=== PATIENT | female | born 1940 | race Caucasian/White ===

== ENCOUNTER 2023-07-15 08:12 | Inpatient (IN) | payer MEDICARE ==
[2023-07-15] MEDS ORDERED: SODIUM CHLORIDE 0.9% 500 ML 500 ML IV STA (08:23)
[2023-07-15 08:47] LABS: Basophils # (A) 0.1 k/uL (0-0.2); Basophils % (A) 1 %; Eosinophils # (A) 0.2 k/uL (0-0.7); Eosinophils % (A) 2 %; HCT 44.6 % (34.0-46.0); HGB 14.8 gm/dL (11.4-16.0); Lymphocytes # (A) 2.7 k/uL (1.0-4.8); Lymphocytes % (A) 27 %; MCHC 33.3 g/dL (31.0-37.0); MCV 93.2 fL (80.0-100.0); Mean Platelet Volume 10.4; Monocytes # (A) 0.7 k/uL (0-1.0); Monocytes % (A) 7 %; Neutrophils # (A) 6.2 k/uL (1.3-7.7); Neutrophils % (A) 62 %; Platelet Count 183 k/uL (150-450); RBC 4.78 m/uL (3.80-5.40); RDW 12.9 % (11.5-15.5)
[2023-07-15 08:55] LABS: ALT 90 U/L (4-34); AST 82 U/L (14-36); African American GFR (CKD) 90 (>60 ml/min/1.73 sqM); Albumin 4.2 g/dL (3.5-5.0); Alkaline Phosphatase 61 U/L (38-126); Anion Gap 9 mmol/L; Blood Urea Nitrogen 23 mg/dL (7-17); Calcium 9.2 mg/dL (8.4-10.2); Carbon Dioxide 23 mmol/L (22-30); Chloride 107 mmol/L (98-107); Glucose 105 mg/dL (74-99); INR 0.9 (<1.2); Non-African American GFR(CKD) 78 (>60 ml/min/1.73 sqM); Partial Thromboplastin Time 25.4 sec (22.0-30.0); Potassium 4.9 mmol/L (3.5-5.1); Prothrombin Time 10.4 sec (10.0-12.5); Sodium 139 mmol/L (137-145); Total Bilirubin 1.2 mg/dL (0.2-1.3); Total Protein 7.2 g/dL (6.3-8.2)
--- NOTE | 2023-07-15 09:13 | ED ---
General Adult HPI - General Chief complaint: Arrhythmia/Palpitations Stated complaint: Afib Time Seen by Provider: 07/15/23 08:16 Source: patient, family Mode of arrival: ambulatory Limitations: no limitations - History of Present Illness Initial comments: Dictation was produced using [employer] dictation software. please excuse any grammatical, word or spelling errors. Chief Complaint: 83-year-old female presents with palpitations and weakness History of Present Illness: A 3-year-old female she has a pacemaker. She also has history of A. fib takes anticoagulation medications for last 2-3 days she's been feeling palpitations. She would check her radial pulse feels like she would is to be every 7 beats. She does have a pacemaker that she says does not R be slower than 50 bpm. She also has been feeling weak. Denies any pain complaints. Denies any fever or constitutional symptoms. No sore throat runny nose. Denies any urinary symptoms. The ROS documented in this emergency department record has been reviewed and confirmed by me. Those systems with pertinent positive or negative responses have been documented in the HPI. All other systems are other negative and/or noncontributory. - Related Data Home Medications Medication Instructions Recorded Confirmed Isosorbide Mononitrate ER [Imdur] 30 mg PO BID 07/15/23 07/15/23 Losartan Potassium 50 mg PO BID 07/15/23 07/15/23 Nattokinase (Unknown Dose) 1 cap PO BID 07/15/23 07/15/23 Nitroglycerin Sl Tabs [Nitrostat] 0.4 mg SUBLINGUAL Q5M PRN 07/15/23 07/15/23 atenoloL [Tenormin] 25 mg PO HS 07/15/23 07/15/23 atenoloL [Tenormin] 50 mg PO DAILY 07/15/23 07/15/23 Allergies Allergy/AdvReac Type Severity Reaction Status Date / Time No Known Allergies Allergy Verified 07/15/23 09:08 Review of Systems ROS Statement: Those systems with pertinent positive or pertinent negative responses have been documented in the HPI. ROS Other: All systems not noted in ROS Statement are negative. Past Medical History Past Medical History: Atrial Fibrillation, CVA/TIA, Hypertension, Myocardial Infarction ([place]) Past Surgical History: Coronary Bypass/CABG, Pacemaker Additional Past Surgical History / Comment(s): CABG 2013, Past Psychological History: No Psychological Hx Reported Smoking Status: Never smoker Past Alcohol Use History: None Reported Past Drug Use History: None Reported General Exam - General Exam Comments Initial Comments: PHYSICAL EXAM: General Impression: Alert and oriented x3, not in acute distress HEENT: Normocephalic atraumatic, extra-ocular movements intact, pupils equal and reactive to light bilaterally, mucous membranes moist. Cardiovascular: Heart regular rate and rhythm Chest: Able to complete full sentences, no retractions, no tachypnea Abdomen: abdomen soft, non-tender, non-distended, no organomegaly Musculoskeletal: Pulses present and equal in all extremities, no peripheral edema Motor: no focal deficits noted Neurological: CN II-XII grossly intact, no focal motor or sensory deficits noted Skin: Intact with no visualized rashes Psych: Normal affect and mood Limitations: no limitations Course Vital Signs 07/15/23 07/15/23 07/15/23 08:16 08:26 10:08 Temperature 98.1 F Pulse Rate 58 L 66 Pulse Rate [ 62 Hand Spray Operator ] Respiratory 18 18 Rate Blood Pressure 189/79 O2 Sat by Pulse 96 96 Oximetry 07/15/23 10:34 Temperature Pulse Rate 68 Pulse Rate [ Hand Spray Operator ] Respiratory 18 Rate Blood Pressure 140/78 O2 Sat by Pulse 98 Oximetry EKG Findings - EKG Comments: EKG Findings:: My EKG interpretation: Ventricular rate 64, atrial paced rhythm,. 160, QRS 93, QTC 425. No ND prolongation, no QTC prolongation, no ST or T-wave changes noted. Overall, this EKG is unremarkable Medical Decision Making - Medical Decision Making Was pt. sent in by a medical professional or institution (, PA, SHIFT SUPERVISOR RN, urgent care, hospital, or residential...) When possible be specific @ -No Did you speak to anyone other than the patient for history (EMS, parent, family, police, friend...)? What history was obtained from this source @ -No Did you review nursing and triage notes (agree or disagree)? Why? @ -I reviewed and agree with nursing and triage notes Were old charts reviewed (outside hosp., previous admission, EMS record, old EKG, old radiological studies, urgent care reports/EKG's, residential records)? Report findings @ -No old charts were reviewed Differential Diagnosis (chest pain, altered mental status, abdominal pain women, abdominal pain men, vaginal bleeding, musculoskeletal, weakness, fever, dyspnea, syncope, headache, dizziness, GI bleed, back pain, seizure, CVA, palpatations, mental health)? @ - Differential Palpitations: Ventricular arrhythmias, atrial arrhythmias, myocardial infarction, anemia, thyrotoxicosis, electrolyte imbalance, hypokalemia, pulmonary embolism, pulmonary disease, drugs, alcohol, anxiety, stress.... This is not meant to be an all-inclusive list. EKG interpreted by me (3pts min.). @ -As above X-rays interpreted by me (1pt min.). @ -Chest x-ray shows no acute processes CT interpreted by me (1pt min.). @ -None done U/S interpreted by me (1pt. min.). @ -None done What testing was considered but not performed or refused? (CT, X-rays, U/S, labs)? Why? @ -None What meds were considered but not given or refused? Why? @ -None Did you discuss the management of the patient with other professionals (professionals i.e. , PA, SHIFT SUPERVISOR RN, lab, RT, psych nurse, social science instructor, documentation analyst, teacher, targeting acquisition officer, case packer)? Give summary @ -Case discussed with sheet for admission Was smoking cessation discussed for >3mins.? @ -No Was critical care preformed (if so, how long)? @ -No Were there social determinants of health that impacted care today? How? (Homelessness, low income, unemployed, alcoholism, drug addiction, transportation, low edu. Level, literacy, decrease access to med. care, fci, rehab)? @ -No Was there de-escalation of care discussed even if they declined (Discuss DNR or withdrawal of care, Hospice)? DNR status @ -No What co-morbidities impacted this encounter? (DM, HTN, Smoking, COPD, CAD, Cancer, CVA, ARF, Chemo, Hep., AIDS, mental health diagnosis, sleep apnea, morbid obesity)? @ -None Was patient admitted / discharged? Hospital course, mention meds given and route, prescriptions, significant lab abnormalities, going to OR and other pertinent info. @ -83-year-old well-appearing female presents to the emergency department for generalized weakness and palpitations. She has a pacemaker. Patient recently moved here from [place] she has not had any cardiac care here in [place]. He just moved last week. Vital signs are stable. Patient is well-appearing. EKG is unremarkable. Laboratory evaluation obtained. CBC and metabolic panels within acceptable limits. She does have a positive troponin of 1.930. No old trauma levels for comparison. Given patient's elevated troponin with positive symptoms she is agreeable for observation admission with consultation c ardiology. Undiagnosed new problem with uncertain prognosis? @ -No Drug Therapy requiring intensive monitoring for toxicity (Heparin, Nitro, Ins ulin, Cardizem)? @ -No Were any procedures done? @ -No Diagnosis/symptom? Acute, or Chronic, or Acute on Chronic? Uncomplicated (without systemic symptoms) or Complicated (systemic symptoms)? @ -Palpitations Side effects of treatment? @ -No Exacerbation, Progression, or Severe Exacerbation? @ -No Poses a threat to life or bodily function? How? (Chest pain, [place], [place], pneumonia, PE, COPD, DKA, ARF, appy, cholecystitis, CVA, Diverticulitis, Homicidal, Suicidal, threat to staff... and all critical care pts) @ -yes - Lab Data Result diagrams: 07/15/23 08:36 07/15/23 08:36 Lab Results 07/15/23 07/15/23 07/15/23 Range/Units 08:36 08:36 08:36 WBC 10.0 (3.8-10.6) k/uL RBC 4.78 (3.80-5.40) m/uL Hgb 14.8 (11.4-16.0) gm/dL Hct 44.6 (34.0-46.0) % MCV 93.2 (80.0-100.0) fL MCH 31.0 (25.0-35.0) pg MCHC 33.3 (31.0-37.0) g/dL RDW 12.9 (11.5-15.5) % Plt Count 183 (150-450) k/uL MPV 10.4 Neutrophils % 62 % Lymphocytes % 27 % Monocytes % 7 % Eosinophils % 2 % Basophils % 1 % Neutrophils # 6.2 (1.3-7.7) k/uL Lymphocytes # 2.7 (1.0-4.8) k/uL Monocytes # 0.7 (0-1.0) k/uL Eosinophils # 0.2 (0-0.7) k/uL Basophils # 0.1 (0-0.2) k/uL PT 10.4 (10.0-12.5) sec INR 0.9 (<1.2) APTT 25.4 (22.0-30.0) sec Sodium 139 (137-145) mmol/L Potassium 4.9 (3.5-5.1) mmol/L Chloride 107 (98-107) mmol/L Carbon Dioxide 23 (22-30) mmol/L Anion Gap 9 mmol/L BUN 23 H (7-17) mg/dL Creatinine 0.72 (0.52-1.04) mg/dL Est GFR (CKD-EPI)AfAm 90 (>60 ml/min/1.73 sqM) Est GFR (CKD-EPI)NonAf 78 (>60 ml/min/1.73 sqM) Glucose 105 H (74-99) mg/dL Calcium 9.2 (8.4-10.2) mg/dL Magnesium 2.0 (1.6-2.3) mg/dL Total Bilirubin 1.2 (0.2-1.3) mg/dL AST 82 H (14-36) U/L ALT 90 H (4-34) U/L Alkaline Phosphatase 61 (38-126) U/L Troponin I (0.000-0.034) ng/mL Total Protein 7.2 (6.3-8.2) g/dL Albumin 4.2 (3.5-5.0) g/dL TSH 1.610 (0.465-4.680) mIU/L 07/15/23 Range/Units 08:36 WBC (3.8-10.6) k/uL RBC (3.80-5.40) m/uL Hgb (11.4-16.0) gm/dL Hct (34.0-46.0) % MCV (80.0-100.0) fL MCH (25.0-35.0) pg MCHC (31.0-37.0) g/dL RDW (11.5-15.5) % Plt Count (150-450) k/uL MPV Neutrophils % % Lymphocytes % % Monocytes % % Eosinophils % % Basophils % % Neutrophils # (1.3-7.7) k/uL Lymphocytes # (1.0-4.8) k/uL Monocytes # (0-1.0) k/uL Eosinophils # (0-0.7) k/uL Basophils # (0-0.2) k/uL PT (10.0-12.5) sec INR (<1.2) APTT (22.0-30.0) sec Sodium (137-145) mmol/L Potassium (3.5-5.1) mmol/L Chloride (98-107) mmol/L Carbon Dioxide (22-30) mmol/L Anion Gap mmol/L BUN (7-17) mg/dL Creatinine (0.52-1.04) mg/dL Est GFR (CKD-EPI)AfAm (>60 ml/min/1.73 sqM) Est GFR (CKD-EPI)NonAf (>60 ml/min/1.73 sqM) Glucose (74-99) mg/dL Calcium (8.4-10.2) mg/dL Magnesium (1.6-2.3) mg/dL Total Bilirubin (0.2-1.3) mg/dL AST (14-36) U/L ALT (4-34) U/L Alkaline Phosphatase (38-126) U/L Troponin I 1.930 H* (0.000-0.034) ng/mL Total Protein (6.3-8.2) g/dL Albumin (3.5-5.0) g/dL TSH (0.465-4.680) mIU/L Disposition Clinical Impression: Palpitations, Elevated troponin Disposition: ADMITTED IP TO THIS [facility] Condition: Fair Referrals: Nonstaff,Physician [Primary Care Provider] - 1-2 days Decision Time: 10:00
--- NOTE | 2023-07-15 09:13 | XR ---
EXAMINATION TYPE: XR chest 2V DATE OF EXAM: 07/15/2023 COMPARISON: NONE TECHNIQUE: PA and lateral views submitted. HISTORY: Irregular heart beat FINDINGS: The lungs are clear and there is no pneumothorax, pleural effusion, or focal pneumonia. Heart size normal and no overt failure. Osseous structures demonstrate hypertrophic and degenerative changes of the spine. Diffuse emphysematous changes. Median sternotomy changes cardiac device. Diffuse osteopeni a throughout the shoulders. Basilar atelectasis. Prominence of the upper mediastinum likely related t o ectatic vasculature. Chronic rib cage deformities. IMPRESSION: 1. COPD. 2. Cardiomegaly..
[2023-07-15] MEDS ORDERED: ASPIRIN 81 MG PO STA (10:34)
[2023-07-15] MEDS ORDERED: NITROGLYCERIN SL TABS 0.4 MG TAB SUBLINGUAL PRN ×2 (10:34→13:47)
[2023-07-15 11:59] LABS: Appearance,Urine Clear (Clear); Color,Urine Yellow; PH, Urine 6.5 (5.0-8.0); Protein,Urine Negative (Negative)
[2023-07-15 12:00] LABS: Bilirubin,Urine Negative (Negative); Blood,Urine Negative (Negative); Glucose,Urine (UA) Negative (Negative); Ketones,Urine Negative (Negative); Leukocyte Esterase,Urine Moderate (Negative); Nitrite,Urine Negative (Negative); Urobilinogen,Urine 0.2 mg/dL (<2.0)
[2023-07-15 12:20] LABS: Mucus,Urine Rare /hpf; RBC,Urine 2 /hpf (0-5); Squamous Epithelial Cell,Urine 1 /hpf (0-4); WBC,Urine 12 /hpf (0-5)
[2023-07-15] MEDS ORDERED: HEPARIN SODIUM 1,000 UN/ML (10ML VL) IV ONE (15:27)
[2023-07-15] MEDS ORDERED: HEPARIN SODIUM 1,000 UN/ML (10ML VL) IV PRN (15:27)
--- NOTE | 2023-07-15 15:32 | P.HPIM ---
History of Present Illness This is a pleasant 83 years old female with past medical history of atrial fibrillation and coronary artery disease status post CABG. CVA/TIA, hypertension, status post pacemaker Patient presents because of episodes of feeling weak and lightheadedness with slight sweating that last this for about 15 minutes, the lightheadedness is that she feels about the pass out but she does not. It happens 3 times over the last 3 days but also she is under a lot of stress [place] She denies chest pain or dyspnea. No change in urine or bowel habits. No fever. She is a known case of A. fib but she takes a natural blood thinner , she states it's a [place] medicine because her doctor is holistic. However I told the patient we want her to start on medication called heparin drip which is not holistic or natural and she agrees to take this medication while she is in the hospital. Also risks including but not to that was completed and I spent for her in details and she is agreeable. She denies any other symptoms like coughing, diarrhea abdominal pain and vomiting. No headache , no weakness or numbness. She denies trauma. She denies bleeding from anywhere. She denies smoking alcohol or illicit drugs. he is hemodynamically stable currently with blood pressure 154/77, on admission her blood pressure was high at 189/79, patient is afebrile. Labs were unremarkable including CBC, BMP, INR, liver function tests. Urine analysis Is not very suspicious of infection except for mildly elevated leukocyte esterase. Elevated 1.9 and 1.6. TSH is normal at 1.6. Influenza A and type B, RSV, SARS (coronavirus) are and detected EKG showed atrial paced rhythm at [address] T changes Chest x-ray showing no acute process but cardiomegaly and COPD changes In the emergency room patient was started on 325 mg of aspirin. Review of Systems Review of systems CONSTITUTIONAL: No fever, no malaise, no fatigue. HEENT: No recent visual problems or hearing problems. Denied any sore throat. CARDIOVASCULAR: No orthopnea, PND, no palpitations, no syncope. PULMONARY: No shortness of breath, no cough, no hemoptysis. GASTROINTESTINAL: No diarrhea, no nausea, no vomiting, no abdominal pain. Normoactive bowel sounds. NEUROLOGICAL: No headaches, no weakness, no numbness. HEMATOLOGICAL: Denies any bleeding or petechiae. GENITOURINARY: Denies any burning micturition, frequency, or urgency. MUSCULOSKELETAL/RHEUMATOLOGICAL: Denies any joint pain, swelling, or any muscle pain. ENDOCRINE: Denies any polyuria or polydipsia. Past Medical History Past Medical History: Atrial Fibrillation, CVA/TIA, Hypertension, Myocardial Infarction ([place]) Past Surgical History: Coronary Bypass/CABG, Pacemaker Additional Past Surgical History / Comment(s): CABG 2012, Past Psychological History: No Psychological Hx Reported Smoking Status: Never smoker Past Alcohol Use History: None Reported Past Drug Use History: None Reported Medications and Allergies Home Medications Medication Instructions Recorded Confirmed Type Isosorbide Mononitrate ER [Imdur] 30 mg PO BID 07/15/23 07/15/23 History Losartan Potassium 50 mg PO BID 07/15/23 07/15/23 History Nattokinase (Unknown Dose) 1 cap PO BID 07/15/23 07/15/23 History Nitroglycerin Sl Tabs [Nitrostat] 0.4 mg SUBLINGUAL Q5M PRN 07/15/23 07/15/23 History atenoloL [Tenormin] 25 mg PO HS 07/15/23 07/15/23 History atenoloL [Tenormin] 50 mg PO DAILY 07/15/23 07/15/23 History Allergies Allergy/AdvReac Type Severity Reaction Status Date / Time No Known Allergies Allergy Verified 07/15/23 09:08 Physical Exam Vitals: Vital Signs Temp Pulse Pulse Resp BP Pulse Ox 07/15/23 12:00 62 16 154/72 98 07/15/23 10:34 68 18 140/78 98 07/15/23 10:08 66 18 96 07/15/23 08:26 62 07/15/23 08:16 98.1 F 58 L 18 189/79 96 Intake and Output 07/14/23 07/15/23 07/15/23 22:59 06:59 14:59 Other: Weight 70.307 kg GENERAL: The patient is alert and oriented x3, not in any acute distress. Well developed, well nourished. HEENT: Pupils are round and equally reacting to light. EOMI. No scleral icterus. No conjunctival pallor. Normocephalic, atraumatic. No pharyngeal erythema. No thyromegaly. CARDIOVASCULAR: S1 and S2 present. No murmurs, rubs, or gallops. PULMONARY: Chest is clear to auscultation, no wheezing , no crackles. ABDOMEN: Soft, nontender, nondistended, normoactive bowel sounds. No palpable organomegaly. MUSCULOSKELETAL: No joint swelling or deformity. EXTREMITIES: No cyanosis, clubbing, or pedal edema. NEUROLOGICAL: Gross neurological examination did not reveal any focal deficits. SKIN: No rashes. no petechiae. Results CBC & Chem 7: 07/15/23 08:36 07/15/23 08:36 Labs: Abnormal Lab Results - Last 24 Hours (Table) 07/15/23 07/15/23 07/15/23 Range/Units 08:36 08:36 11:12 BUN 23 H (7-17) mg/dL Glucose 105 H (74-99) mg/dL AST 82 H (14-36) U/L ALT 90 H (4-34) U/L Troponin I 1.930 H* 1.660 H* (0.000-0.034) ng/mL Ur Leukocyte Esterase (Negative) Urine WBC (0-5) /hpf Urine Mucus (None) /hpf 07/15/23 Range/Units 11:28 BUN (7-17) mg/dL Glucose (74-99) mg/dL AST (14-36) U/L ALT (4-34) U/L Troponin I (0.000-0.034) ng/mL Ur Leukocyte Esterase Moderate H (Negative) Urine WBC 12 H (0-5) /hpf Urine Mucus Rare H (None) /hpf Assessment and Plan Assessment: Elevated troponin with episodes of palpitation and weakness, rule out ACS versus A. fib History of A. fib, not sure if there is RVR but heart rate was controlled on admission. History of CVA/TIA Hypertension 6 sinus syndrome status post pacemaker Coronary artery disease status post CABG Obesity with BMI of 30.3 Plan: Continue with aspirin currently on 325 mg daily. lower lower the dose to 81 mg Recommend heparin drip. There is no contraindication Check echocardiogram Continue with sublingual nitroglycerin when necessary Cardiology consult I asked the patient to bring her home on blood thinner box and she agrees Labs and medication were reviewed.. Continue same treatment. Continue with symptomatic treatment. Resume home medication. Monitor labs and vitals. DVT and GI prophylaxis. Further recommendations as per clinical course of the patient DVT prophylaxis: heparin GI Prophylaxis: Pepcid PT/OT: Pending Prognosis is guarded
[2023-07-15] MEDS: HEPARIN SOD,PORK IN 0.45% NACL 25,000 UNIT in 0.45% NACL 1 250ML.BAG IV SCH (15:44)
[2023-07-15] MEDS: ISOSORBIDE MONONITRATE ER 30 MG TAB.ER.24H PO SCH (18:35)
[2023-07-15] MEDS: LOSARTAN 50 MG TAB PO SCH (18:35)
[2023-07-15] MEDS ORDERED: FAMOTIDINE 20 MG/2 ML VIAL IV SCH ×2 (21:00)
[2023-07-15] MEDS ORDERED: atenoloL 25 MG TAB PO SCH (21:00)
[2023-07-15] MEDS: FAMOTIDINE 20 MG/2 ML VIAL IV SCH (21:50)
[2023-07-16 04:38] LABS: Basophils # (A) 0.1 k/uL (0-0.2); Basophils % (A) 1 %; Eosinophils # (A) 0.2 k/uL (0-0.7); Eosinophils % (A) 2 %; HCT 39.9 % (34.0-46.0); HGB 13.3 gm/dL (11.4-16.0); Lymphocytes # (A) 3.7 k/uL (1.0-4.8); Lymphocytes % (A) 37 %; MCH 31.2 pg (25.0-35.0); MCHC 33.4 g/dL (31.0-37.0); MCV 93.5 fL (80.0-100.0); Mean Platelet Volume 10.6; Monocytes # (A) 0.6 k/uL (0-1.0); Monocytes % (A) 6 %; Neutrophils # (A) 5.2 k/uL (1.3-7.7); Neutrophils % (A) 52 %; Platelet Count 162 k/uL (150-450); RBC 4.27 m/uL (3.80-5.40); RDW 12.9 % (11.5-15.5); WBC 9.9 k/uL (3.8-10.6)
[2023-07-16] MEDS ORDERED: hydrALAZINE HCL 20 MG/ML 1 ML VIAL IVP PRN (07:19)
[2023-07-16] MEDS ORDERED: FUROSEMIDE 10 MG/ML 4 ML VIAL IV STA (07:25)
[2023-07-16] MEDS: ASPIRIN 81 MG PO SCH (07:55)
[2023-07-16] MEDS: LOSARTAN 50 MG TAB PO SCH ×2 (07:55→19:57)
[2023-07-16] MEDS: carvediloL 12.5 MG TAB PO SCH ×2 (07:55→17:28)
[2023-07-16] MEDS: ISOSORBIDE MONONITRATE ER 30 MG TAB.ER.24H PO SCH ×2 (07:55→19:57)
--- NOTE | 2023-07-16 07:57 | P.CRDCN ---
History of Present Illness History of present illness: HISTORY OF PRESENT ILLNESS: This is a 83-year-old female with a past medical history significant for coronary artery disease with previous 5 vessel CABG, CVA with left-sided weakness, pacemaker implantation, paroxysmal atrial fibrillation, and hypertension. Patient does not follow with a chairman and ceo as she just moved here from [place]. We have been asked to see the patient in consultation for palpitations and elevated troponin. Patient examined at the bedside. Patient states she just moved here from [place] last week and has been under a lot of stress. She has not yet established with a chairman and ceo here. She states 2 days ago she had 2 episodes where she felt dizzy and felt like she was going to pass out. She also reports feeling her pulse and felt that it felt fast and irregular. She reports having another episode yesterday when she came to the ostal. She denied any chest pain or pressure. She denies any shortness of breath. She does stay in the morning she has a hard time initially taking a deep breath but it resolves shortly after waking. She reports having some diaphoresis yesterday. Denies nausea or vomiting. She denies any chest pain at the time of examination. The patient is not prescribed intake regulation on an outpatient basis per her choice. She is on a [place] medication called Nattokinase on an outpatient basis which was recommended by a holistic doctor that she saw in [place] * EKG reveals paced rhythm with T wave inversions inferiorly * Chest xray COPD and cardiomegaly * Laboratory data: Troponin 1.930. TSH 1.610. BUN 23. Creatinine 0.72. * Current home cardiac medications include atenolol 50 mg in the morning and 25 mg at night, Imdur 30 mg twice a day, and losartan 50 mg twice a day * No previous echocardiogram or cardiac catheterization available in EMR for review REVIEW OF SYSTEMS: At the time of my exam: CONSTITUTIONAL: Denies fever or chills. HEENT: Denies blurred vision, vision changes, or eye pain. Denies hemoptysis CARDIOVASCULAR: Denies chest pain. Denies orthopnea. Denies PND. Denies palpitations RESPIRATORY: Denies shortness of breath. GASTROINTESTINAL: Denies abdominal pain. Denies nausea or vomiting. HEMATOLOGIC: Denies bleeding disorders. GENITOURINARY: Denies any blood in urine. SKIN: Denies pruitis. Denies rash. PHYSICAL EXAM: VITAL SIGNS: Reviewed. GENERAL: Well-developed in no acute distress. HEENT: Head is normocephalic. Pupils are equal, round. Sclerae anicteric. Mucous membranes of the mouth are moist. Neck supple. No JVD or thyromegaly LUNGS: Respirations even and unlabored. Lungs essentially clear to auscultation bilaterally. HEART: Regular rate and rhythm. S1 and S2 heard. ABDOMEN: Soft. Nondistended. Nontender. EXTREMITIES: Normal range of motion. No clubbing or cyanosis. Peripheral pulses intact. No lower extremity edema NEUROLOGIC: Awake and alert. Oriented x 3. ASSESSMENT: Palpitations Non-STEMI Paroxysmal atrial fibrillation History of pacemaker implantation, 2012 Coronary artery disease with previous 5 vessel CABG, 2012 Hypertension History of CVA, 18 years ago, per patient, with residual left-sided weakness PLAN: Obtain 2-D echo to assess cardiac structure and function Continue IV heparin Discontinue atenolol Begin carvedilol 12.5 mg twice a day for optimal blood pressure control Give 1 dose of IV Lasix Interrogate pacemaker to assess for A. fib burden Continue additional home cardiac medications Discussed stress testing versus cardiac catheterization with patient. Patient states she does not want to have a stress test today as she is nervous because she had a friend who underwent a nuclear stress test and did not tolerate it well. Nothing by mouth midnight for possible heart catheterization tomorrow with Dr. Hernández Further recommendations pending patient's course Nurse practitioner note has been reviewed by physician. Signing provider agrees with the documented findings, assessment, and plan of care. Past Medical History Past Medical History: Atrial Fibrillation, CVA/TIA, Hypertension, Myocardial Infarction ([place]) Past Surgical History: Coronary Bypass/CABG, Pacemaker Additional Past Surgical History / Comment(s): CABG 2012, Past Psychological History: No Psychological Hx Reported Smoking Status: Never smoker Past Alcohol Use History: None Reported Past Drug Use History: None Reported Medications and Allergies Home Medications Medication Instructions Recorded Confirmed Type Isosorbide Mononitrate ER [Imdur] 30 mg PO BID 07/15/23 07/15/23 History Losartan Potassium 50 mg PO BID 07/15/23 07/15/23 History Nattokinase (Unknown Dose) 1 cap PO BID 07/15/23 07/15/23 History Nitroglycerin Sl Tabs [Nitrostat] 0.4 mg SUBLINGUAL Q5M PRN 07/15/23 07/15/23 History atenoloL [Tenormin] 25 mg PO HS 07/15/23 07/15/23 History atenoloL [Tenormin] 50 mg PO DAILY 07/15/23 07/15/23 History Allergies Allergy/AdvReac Type Severity Reaction Status Date / Time No Known Allergies Allergy Verified 07/15/23 09:08 Physical Exam Vitals: Vital Signs Temp Pulse Pulse Resp BP Pulse Ox 07/15/23 10:34 68 18 140/78 98 07/15/23 10:08 66 18 96 07/15/23 08:26 62 07/15/23 08:16 98.1 F 58 L 18 189/79 96 Intake and Output 07/14/23 07/15/23 07/15/23 22:59 06:59 14:59 Other: Weight 70.307 kg Results 07/16/23 03:44 07/15/23 08:36 Cardiac Enzymes 07/15/23 07/15/23 Range/Units 08:36 08:36 AST 82 H (14-36) U/L Troponin I 1.930 H* (0.000-0.034) ng/mL Coagulation 07/15/23 Range/Units 08:36 PT 10.4 (10.0-12.5) sec APTT 25.4 (22.0-30.0) sec CBC 07/15/23 Range/Units 08:36 WBC 10.0 (3.8-10.6) k/uL RBC 4.78 (3.80-5.40) m/uL Hgb 14.8 (11.4-16.0) gm/dL Hct 44.6 (34.0-46.0) % Plt Count 183 (150-450) k/uL Comprehensive Metabolic Panel 07/15/23 Range/Units 08:36 Sodium 139 (137-145) mmol/L Potassium 4.9 (3.5-5.1) mmol/L Chloride 107 (98-107) mmol/L Carbon Dioxide 23 (22-30) mmol/L BUN 23 H (7-17) mg/dL Creatinine 0.72 (0.52-1.04) mg/dL Glucose 105 H (74-99) mg/dL Calcium 9.2 (8.4-10.2) mg/dL AST 82 H (14-36) U/L ALT 90 H (4-34) U/L Alkaline Phosphatase 61 (38-126) U/L Total Protein 7.2 (6.3-8.2) g/dL Albumin 4.2 (3.5-5.0) g/dL Current Medications Generic Name Dose Route Start Last Admin Trade Name Freq PRN Reason Stop Dose Admin Aspirin 325 mg 07/16/23 09:00 Aspirin 325 Mg Tab PO DAILY ADAM Nitroglycerin 0.4 mg 07/15/23 10:34 Nitroglycerin Sl Tabs 0.4 Mg Tab SUBLINGUAL Q5M PRN Chest Pain Intake and Output 07/14/23 07/15/23 07/15/23 22:59 06:59 14:59 Other: Weight 70.307 kg Patient Weight 07/16/23 06:59 Weight 70.307 kg 07/15/23 08:36 07/15/23 08:36
[2023-07-16 08:44] LABS: Chol/HDL Ratio 3.16 Ratio; LDL Cholesterol,Calculated 91.5 mg/dL (0.0-131.0)
[2023-07-16] MEDS ORDERED: atenoloL 50 MG TAB PO SCH (09:00)
[2023-07-16] MEDS ORDERED: ASPIRIN 325 MG TAB PO SCH (09:00)
[2023-07-16] MEDS ORDERED: SODIUM CHLORIDE 0.9% 500 ML 250 ML IV ONE (09:59)
--- NOTE | 2023-07-16 12:14 | CA ---
Transthoracic Echo Report Name: Catalina Escobar Age: 83 Gender: F : 1940 Exam Date: 07/15/2023 15:46 Exam Location: [facility] Ht (in): 60 Wt (lb): 155 Ordering Physician: Ernie Justin MD Attending/Referring Phys: [id number], [employer] Personnel Negotiator Carolyn Hanson RDCS Procedure CPT: Indications: Rule out heart disease Cardiac Hx: Technical Quality: Technically difficult study Contrast 1: Definity Total Dose (mL): 2 Contrast 2: Total Dose (mL): MEASUREMENTS (Male / Female) Normal Values 2D ECHO LV Diastolic Diameter PLAX 4.5 cm 4.2 - 5.9 / 3.9 - 5.3 cm LV Systolic Diameter PLAX 3.3 cm IVS Diastolic Thickness 1.3 cm 0.6 - 1.0 / 0.6 - 0.9 cm LVPW Diastolic Thickness 1.1 cm 0.6 - 1.0 / 0.6 - 0.9 cm LV Relative Wall Thickness 0.5 RV Internal Dim ED PLAX 2.9 cm LVOT Diameter 1.9 cm LA Systolic Diameter LX 4.2 cm 3.0 - 4.0 / 2.7 - 3.8 cm LV Diastolic Volume MOD BP 59.8 cm??? 67 - 155 / 56 - 104 cm??? LV Systolic Volume MOD BP 30.0 cm??? 22 - 58 / 19 - 49 cm??? LV Ejection Fraction MOD BP 49.9 % >= 55 % LV Cardiac Index MOD BP 1107.3 cm???/min???m??? LV Diastolic Volume MOD 4C 57.2 cm??? LV Systolic Volume MOD 4C 28.9 cm??? LV Ejection Fraction MOD 4C 49.5 % LV Cardiac Index MOD 4C 1050.2 cm???/min???m??? LV Diastolic Length 4C 6.8 cm LV Systolic Length 4C 6.5 cm LV Diastolic Volume MOD 2C 65.2 cm??? LV Systolic Volume MOD 2C 13.7 cm??? LV Ejection Fraction MOD 2C 79.0 % LV Cardiac Index MOD 2C 1910.7 cm???/min???m??? LV Diastolic Length 2C 6.7 cm LV Systolic Length 2C 2.7 cm LA Volume 68.3 cm??? 18 - 58 / 22 - 52 cm??? LA Volume Index 39.0 cm???/m??? 16 - 28 cm???/m??? M-MODE Aortic Root Diameter MM 2.7 cm MV E Point Septal Separation 0.8 cm AV Cusp Separation MM 1.7 cm DOPPLER AV Peak Velocity 212.5 cm/s AV Peak Gradient 18.1 mmHg AV Mean Velocity 152.3 cm/s AV Mean Gradient 10.3 mmHg AV Velocity Time Integral 52.0 cm LVOT Peak Velocity 139.0 cm/s LVOT Peak Gradient 7.7 mmHg AV Area Cont Eq pk 1.9 cm??? MV Peak Velocity 163.4 cm/s MV Peak Gradient 10.7 mmHg MV Mean Velocity 58.4 cm/s MV Mean Gradient 2.2 mmHg MV Velocity Time Integral 34.5 cm MV Area PHT 5.4 cm??? Mitral E Point Velocity 142.9 cm/s Mitral A Point Velocity 66.9 cm/s Mitral E to A Ratio 2.1 MV Deceleration Time 141.5 ms MV E' Velocity 4.5 cm/s Mitral E to MV E' Ratio 31.5 TR Peak Velocity 292.8 cm/s TR Peak Gradient 34.3 mmHg Right Ventricular Systolic Press 38.8 mmHg FINDINGS Left Ventricle Left ventricular ejection fraction is estimated at 55-60 %. Left ventricular cavity size normal. Mild concentric LVH Right Ventricle Normal right ventricular size. Mild pulmonary hypertension. Right Atrium Right atrium not well visualized. Left Atrium Mild LA dilatation Mitral Valve Mitral valve thickened. Mitral annular calcification. Mild mitral regurgitation. Aortic Valve Trileaflet aortic valve. Aortic valve sclerosis. Mild aortic stenosis with a mean gradient of 10 mmHg. Tricuspid Valve Structurally normal tricuspid valve. Mild tricuspid regurgitation. Pulmonic Valve Structurally normal pulmonic valve. No pulmonic regurgitation. Pericardium No pericardial effusion. Aorta Normal size aortic root and proximal ascending aorta. CONCLUSIONS Left ventricular ejection fraction is estimated at 55-60 %. Mild concentric LVH. Mild LA dilatation. Mild aortic stenosis with a mean gradient of 10 mmHg. Mild mitral regurgitation. Mitral annular calcification. No pericardial effusion. Previewed by: Dr Henry Rivero (Electronically Signed) Final Date: 16 July 2023 12:13
[2023-07-16] MEDS: HEPARIN SOD,PORK IN 0.45% NACL 25,000 UNIT in 0.45% NACL 1 250ML.BAG IV SCH (15:50)
[2023-07-16] MEDS: FAMOTIDINE 20 MG/2 ML VIAL IV SCH (19:58)
--- NOTE | 2023-07-16 22:11 | P.PN ---
Subjective This is a pleasant 83 years old female with past medical history of atrial fibrillation and coronary artery disease status post CABG. CVA/TIA, hype rtension, status post pacemaker Patient presents because of episodes of feeling weak and lightheadedness with slight sweating that last this for about 15 minutes, the lightheadedness is that she feels about the pass out but she does not. It happens 3 times over the last 3 days but also she is under a lot of stress [place] She denies chest pain or dyspnea. No change in urine or bowel habits. No fever. She is a known case of A. fib but she takes a natural blood thinner , she states it's a [place] medicine because her doctor is holistic. However I told the patient we want her to start on medication called heparin drip which is not holistic or natural and she agrees to take this medication while she is in the hospital. Also risks including but not to that was completed and I spent for her in details and she is agreeable. She denies any other symptoms like coughing, diarrhea abdominal pain and vomiting. No headache , no weakness or numbness. She denies trauma. She denies bleeding from anywhere. She denies smoking alcohol or illicit drugs. he is hemodynamically stable currently with blood pressure 154/77, on admission her blood pressure was high at 189/79, patient is afebrile. Labs were unremarkable including CBC, BMP, INR, liver function tests. Urine analysis Is not very suspicious of infection except for mildly elevated leukocyte esterase. Elevated 1.9 and 1.6. TSH is normal at 1.6. Influenza A and type B, RSV, SARS (coronavirus) are and detected EKG showed atrial paced rhythm at [address] T changes Chest x-ray showing no acute process but cardiomegaly and COPD changes In the emergency room patient was started on 325 mg of aspirin. 07/16/2023 Patient resting in the chair comfortable no chest pain. Patient blood pressure medication were switched to Coreg pressure fluctuates will keep monitoring Rock Crusher Operator team following with the patient closely Patient remains on IV heparin Possible cardiac cath tomorrow. Objective - Vital Signs Vital signs: Vital Signs Temp 97.4 F L 07/16/23 11:27 Pulse 60 07/16/23 11:27 Resp 14 07/16/23 11:27 BP 139/61 07/16/23 11:27 Pulse Ox 92 L 12/13/23 11:27 FiO2 Intake & Output 07/15/23 07/16/23 07/16/23 18:59 06:59 18:59 Intake Total 166.653 559.586 Balance 166.653 559.586 Weight 70.307 kg Intake: IV 10 Invasive Line 2 10 Intake, IV Titration 48.653 191.586 Amount Heparin Sod,Pork in 0.45% 48.653 191.586 NaCl 25,000 unit In 0.45 % NaCl 1 250ml.bag @ 12 UNITS/KG/HR 8.437 mls/hr IV .Q24H ADAM Rx#: [id number] Oral 118 358 Other: Voiding Method Toilet Toilet Toilet # Voids 1 - Exam -GENERAL: The patient is alert and oriented x3, not in any acute distress. Obese HEENT: Pupils are round and equally reacting to light. EOMI. No scleral icterus. No conjunctival pallor. Normocephalic, atraumatic. No pharyngeal erythema. No thyromegaly. CARDIOVASCULAR: S1 and S2 present. No murmurs, rubs, or gallops. PULMONARY: Chest is clear to auscultation, no wheezing , no crackles. ABDOMEN: Soft, nontender, nondistended, normoactive bowel sounds. No palpable organomegaly. MUSCULOSKELETAL: No joint swelling or deformity. EXTREMITIES: No cyanosis, clubbing, or pedal edema. NEUROLOGICAL: Gross neurological examination did not reveal any focal deficits. SKIN: No rashes. no petechiae. - Labs CBC & Chem 7: 07/16/23 03:44 07/15/23 08:36 Labs: Abnormal Lab Results - Last 24 Hours (Table) 07/15/23 07/16/23 07/16/23 Range/Units 21:12 03:44 13:58 APTT 40.5 H 39.6 H 58.8 H (22.0-30.0) sec Assessment and Plan Assessment: Elevated troponin with episodes of palpitation and weakness, rule out ACS versus A. fib History of A. fib, not sure if there is RVR but heart rate was controlled on admission. History of CVA/TIA Hypertension sick sinus syndrome status post pacemaker Coronary artery disease status post CABG Obesity with BMI of 30.3 Plan: Continue with aspirin 81 mg Continue with heparin drip echocardiogram reviewed Continue with sublingual nitroglycerin when necessary Cardiology consult Cardiac cath in the morning Labs and medication were reviewed.. Continue same treatment. Continue with symptomatic treatment. Resume home medication. Monitor labs and vitals. DVT and GI prophylaxis. Further recommendations as per clinical course of the patient DVT prophylaxis: heparin GI Prophylaxis: Pepcid PT/OT: deferred Prognosis is still guarded
[2023-07-17] MEDS ORDERED: amLODIPine 5 MG TAB PO SCH (06:00)
[2023-07-17] MEDS: carvediloL 12.5 MG TAB PO SCH (06:20)
[2023-07-17] MEDS: ISOSORBIDE MONONITRATE ER 30 MG TAB.ER.24H PO SCH (08:41)
[2023-07-17] MEDS: ASPIRIN 81 MG PO SCH (08:41)
[2023-07-17] MEDS: LOSARTAN 50 MG TAB PO SCH (08:41)
[2023-07-17 09:13] VITALS: RESP 17
[2023-07-17] MEDS ORDERED: CLOPIDOGREL 75 MG TAB PO SCH (12:30)
[2023-07-17 12:36] VITALS: BP 146/73; PULSE 54; TEMP 98.1
--- NOTE | 2023-07-17 14:02 | P.PN ---
Subjective HISTORY OF PRESENT ILLNESS: This is a 83-year-old female with a past medical history significant for coronary artery disease with previous 5 vessel CABG, CVA with left-sided weakness, pacemaker implantation, paroxysmal atrial fibrillation, and hypertension. Patient does not follow with a tax intern as she just moved here from [place]. We have been asked to see the patient in consultation for palpitations and elevated troponin. Patient examined at the bedside. Patient states she just moved here from [place] last week and has been under a lot of stress. She has not yet established with a tax intern here. She states 2 days ago she had 2 episodes where she felt dizzy and felt like she was going to pass out. She also reports feeling her pulse and felt that it felt fast and irregular. She reports having another episode yesterday when she came to the hospital. She denied any chest pain or pressure. She denies any shortness of breath. She does stay in the morning she has a hard time initially taking a araseli p breath but it resolves shortly after waking. She reports having some diaphoresis yesterday. Denies nausea or vomiting. She denies any chest pain at the time of examination. The patient is not prescribed intake regulation on an outpatient basis per her choice. She is on a [place] medication called Nattokinase on an outpatient basis which was recommended by a holistic doctor that she saw in [place] * EKG reveals paced rhythm with T wave inversions inferiorly * Chest xray COPD and cardiomegaly * Laboratory data: Troponin 1.930. TSH 1.610. BUN 23. Creatinine 0.72. * Current home cardiac medications include atenolol 50 mg in the morning and 25 mg at night, Imdur 30 mg twice a day, and losartan 50 mg twice a day * No previous echocardiogram or cardiac catheterization available in EMR for review 07/17/2023 Patient examined this morning at the bedside. Patient currently denies chest pain or pressure. She denies shortness of breath. She reveals atrial paced rhythm. Echocardiogram completed revealing ejection fraction 55-60%, mild concentric LVH, mild pulmonary hypertension, mild aortic stenosis with mean gradient of 10 mmHg, mild tricuspid regurgitation. PHYSICAL EXAM: VITAL SIGNS: Reviewed. GENERAL: Well-developed in no acute distress. HEENT: Head is normocephalic. Pupils are equal, round. Sclerae anicteric. Mucous membranes of the mouth are moist. Neck supple. No JVD or thyromegaly LUNGS: Respirations even and unlabored. Lungs essentially clear to auscultation bilaterally. HEART: Regular rate and rhythm. S1 and S2 heard. ABDOMEN: Soft. Nondistended. Nontender. EXTREMITIES: Normal range of motion. No clubbing or cyanosis. Peripheral pulses intact. No lower extremity edema NEUROLOGIC: Awake and alert. Oriented x 3. ASSESSMENT: Palpitations Non-STEMI Paroxysmal atrial fibrillation History of pacemaker implantation, 2012 Coronary artery disease with previous 5 vessel CABG, 2012 Hypertension History of CVA, 18 years ago, per patient, with residual left-sided weakness PLAN: Discussed possible cardiac catheterization with patient who is declining at this time. She would like to continue with conservative management. Continue with aspirin 81 mg daily. Add Plavix 75 mg daily Patient currently refusing anticoagulation for atrial fibrillation and would like to continue with her holistic medication. Risk of stroke discussed with patient who verbalized understanding. Continue additional cardiac medications Patient is stable for discharge home today from a cardiac standpoint Nurse practitioner note has been reviewed by physician. Signing provider agrees with the documented findings, assessment, and plan of care. Objective - Vital Signs Vital signs: Vital Signs Temp 97.6 F 07/17/23 04:00 Pulse 67 07/17/23 04:00 Resp 18 07/17/23 04:00 BP 176/79 07/17/23 04:00 Pulse Ox 95 07/17/23 04:00 FiO2 Intake & Output 07/16/23 07/17/23 07/17/23 18:59 06:59 18:59 Intake Total 677.586 Balance 677.586 Intake: IV 10 Invasive Line 2 10 Intake, IV Titration 191.586 Amount Heparin Sod,Pork in 0.45% 191.586 NaCl 25,000 unit In 0.45 % NaCl 1 250ml.bag @ 12 UNITS/KG/HR 8.437 mls/hr IV .Q24H [facility] Rx#: [id number] Oral 476 Other: Voiding Method Toilet Toilet # Voids 2 4 - Labs CBC & Chem 7: 07/16/23 03:44 07/15/23 08:36 Labs: Abnormal Lab Results - Last 24 Hours (Table) 07/16/23 Range/Units 13:58 APTT 58.8 H (22.0-30.0) sec
== END 2023-07-17 15:07 | disposition home or self-care (01) | DRG 281 ==
LOC: EC 08:12 → OBSVTOIN 10:35 → 3SCARD 10:35
PROVIDERS: ADMIT Internal Medicine; ATTEND Internal Medicine
DX: I48.0 Paroxysmal atrial fibrillation (principal); I21.4 Non-ST elevation (NSTEMI) myocardial infarction; I69.354 Hemiplegia and hemiparesis following cerebral infarction affecting left non-dominant side; I10 Essential (primary) hypertension; Z20.822 Contact with and (suspected) exposure to COVID-19; I25.10 Atherosclerotic heart disease of native coronary artery without angina pectoris; I49.5 Sick sinus syndrome; Z68.30 Body mass index [BMI] 30.0-30.9, adult; E66.9 Obesity, unspecified; R53.1 Weakness; R00.2 Palpitations; I08.3 Combined rheumatic disorders of mitral, aortic and tricuspid valves; I27.20 Pulmonary hypertension, unspecified; Z79.01 Long term (current) use of anticoagulants; I25.2 Old myocardial infarction; Z79.899 Other long term (current) drug therapy; Z95.1 Presence of aortocoronary bypass graft; Z95.0 Presence of cardiac pacemaker
CPT/HCPCS: 36415; 71046; 80053; 80061; 81001; 83735; 84443; 84484; 85025; 85610; 85730; 87636; 93005; 93306; 96361; 96374; 99285

== ENCOUNTER → 2023-10-20 | Outpatient (CLI) | payer MEDICARE ==
[2023-10-21 03:55] LABS: HCT 41.7 % (37.2-46.3); HGB 13.4 g/dL (12.0-15.0); MCH 30.4 pg (27.0-32.0); MCHC 32.1 g/dL (32.0-37.0); MCV 94.6 FL (80.0-97.0); NRBC Per 100 WBC 0 X 10*3/uL (0.00-0.01); Platelet Count 222 X 10*3/uL (140-440); RBC 4.41 X 10*6/uL (4.10-5.20); RDW 13.9 % (11.5-14.5); WBC 9.14 X 10*3/uL (4.50-10.00)
[2023-10-21 04:01] LABS: ALT 23 U/L (8-44); AST 24 U/L (13-35); Albumin 4.2 g/dL (3.8-4.9); Albumin/Globulin Ratio 1.56 Ratio (1.60-3.17); Alkaline Phosphatase 86 U/L (41-126); BUN/Creat Ratio 31.86 Ratio (12.00-20.00); Blood Urea Nitrogen 22.3 mg/dL (9.0-27.0); Calcium 9.8 mg/dL (8.7-10.3); Carbon Dioxide 21.9 mmol/L (21.6-31.8); Chloride 106 mmol/L (96-109); Globulin 2.7 g/dL (1.6-3.3); Glucose 89 mg/dL (70-110); Potassium 4.9 mmol/L (3.5-5.5); Sodium 140 mmol/L (135-145); Total Bilirubin 0.3 mg/dL (0.3-1.2); Total Protein 6.9 g/dL (6.2-8.2)
== END | disposition home or self-care (01) ==
LOC: LABWHC1 16:22
PROVIDERS: ATTEND Student in an Organized Health Care Education/Training Program
DX: I50.9 Heart failure, unspecified (principal); N18.9 Chronic kidney disease, unspecified
CPT/HCPCS: 36415; 80053; 83036; 84443; 85027

== ENCOUNTER 2023-10-24 10:11 | Day surgery (SDC) | payer MEDICARE ==
[~2023-10-24 10:11] MED LIST: ALPRAZolam 0.25 MG TAB PO PRN; ALPRAZolam 0.5 MG TAB PO PRN; HEPARIN SODIUM,PORCINE (1 ML) 2,500 UNIT in SODIUM CHLORIDE 0.9% 250 ML IRRIGATION PRN; HEPARIN SODIUM,PORCINE 10,000 UNIT in SODIUM CHLORIDE 0.9% 1,000 ML IRRIGATION PRN; NITROGLYCERIN SL TABS 0.4 MG TAB SUBLINGUAL PRN
[2023-10-24] MEDS: SODIUM CHLORIDE 0.9% 1,000 ML in EMPTY BAG 1 BAG IV SCH (10:25)
[2023-10-24] MEDS: IV FLUID CONTINUATION 1,000 ML IV ONE ×2 (11:15→11:43)
[2023-10-24] MEDS ORDERED: ASPIRIN 81 MG ONE (11:18)
[2023-10-24 11:19] VITALS: RESP 16; TEMP 97.6
[2023-10-24] MEDS ORDERED: VERAPAMIL 2.5 MG/ML 2 ML AMP ONE (11:36)
[2023-10-24] MEDS ORDERED: LIDOCAINE 1% INJ 10MG/ML (20 ML MDV) ONE (11:36)
[2023-10-24] MEDS ORDERED: HEPARIN SODIUM 1,000 UN/ML (10ML VL) ONE (11:36)
[2023-10-24] MEDS: ASPIRIN 81 MG PO ONE (11:36)
[2023-10-24] MEDS ORDERED: fentaNYL (PF) 50 MCG/ML 2 ML AMP ONE (11:37)
[2023-10-24] MEDS: fentaNYL (PF) 50 MCG/ML 2 ML AMP IVP ONE (11:40)
[2023-10-24] MEDS: MIDAZOLAM 2 MG/2 ML VIAL IVP ONE (11:40)
[2023-10-24] MEDS: LIDOCAINE 1% INJ 10MG/ML (20 ML MDV) SQ ONE ×2 (11:43→11:55)
[2023-10-24] MEDS: IOPAMIDOL-370 100ML BTL INJ ONE ×2 (12:25→12:37)
[2023-10-24] MEDS: ASPIRIN 325 MG TAB PO STA (15:21)
[2023-10-24] MEDS: ATORVASTATIN 80 MG TAB PO STA (15:21)
[2023-10-24] MEDS: atenoloL 50 MG TAB PO SCH (15:29)
[2023-10-24] MEDS: LOSARTAN 50 MG TAB PO SCH (15:29)
[2023-10-24] MEDS: ISOSORBIDE MONONITRATE ER 30 MG TAB.ER.24H PO SCH (15:29)
[2023-10-24 16:07] VITALS: BP 188/86; PULSE 63
== END 2023-10-24 16:37 | disposition home or self-care (01) ==
LOC: CATHCVL 10:11
PROVIDERS: ATTEND Student in an Organized Health Care Education/Training Program
DX: I25.10 Atherosclerotic heart disease of native coronary artery without angina pectoris (principal); I48.0 Paroxysmal atrial fibrillation; I10 Essential (primary) hypertension; E78.2 Mixed hyperlipidemia; F17.290 Nicotine dependence, other tobacco product, uncomplicated; Z79.899 Other long term (current) drug therapy; E66.9 Obesity, unspecified; Z68.39 Body mass index [BMI] 39.0-39.9, adult; Z79.82 Long term (current) use of aspirin; Z82.49 Family history of ischemic heart disease and other diseases of the circulatory system
CPT/HCPCS: 93458; 76937; C1760; C1769 ×2; C1894 ×2; J2250; J2001; J3010; Q9967

== ENCOUNTER → 2023-12-26 | Outpatient (CLI) | payer MEDICARE ==
--- NOTE | 2023-12-26 16:59 | US ---
EXAMINATION TYPE: US venous doppler duplex LE RT DATE OF EXAM: 12/26/2023 4:09 PM COMPARISON: NONE CLINICAL INDICATION: Female, 83 years old with history of R60.0 LOCALIZED EDEMA; dropped heavy object on rt foot 2 months ago, calf/ foot edema SIDE PERFORMED: Right TECHNIQUE: The lower extremity deep venous system is examined utilizing real time linear array sonog isabell with graded compression, doppler sonography and color-flow sonography. VESSELS IMAGED: Common Femoral Vein Deep Femoral Vein Greater Saphenous Vein * Femoral Vein Popliteal Vein Small Saphenous Vein * Proximal Calf Veins (* superficial vessels) Right Leg: Negative for DVT exam limited by pt. mobility, shadowing calcified vessels, edema IMPRESSION: 1. Right lower extremity ultrasound negative for deep venous thrombosis.
== END | disposition home or self-care (01) ==
LOC: RADUSWWP 15:41
PROVIDERS: ATTEND Family Medicine
DX: R60.0 Localized edema (principal)

== ENCOUNTER 2024-02-05 03:43 | Emergency (ER) | payer MEDICARE ==
[2024-02-05 04:37] LABS: Basophils # (A) 0.1 k/uL (0-0.2); Basophils % (A) 0 %; Eosinophils # (A) 0.3 k/uL (0-0.7); Eosinophils % (A) 2 %; HCT 43.3 % (34.0-46.0); HGB 14.3 gm/dL (11.4-16.0); Lymphocytes # (A) 2.9 k/uL (1.0-4.8); Lymphocytes % (A) 22 %; MCH 30.5 pg (25.0-35.0); MCHC 33.1 g/dL (31.0-37.0); MCV 92.3 fL (80.0-100.0); Mean Platelet Volume 9.7; Monocytes # (A) 0.7 k/uL (0-1.0); Monocytes % (A) 6 %; Neutrophils # (A) 8.9 k/uL (1.3-7.7); Neutrophils % (A) 68 %; Platelet Count 196 k/uL (150-450); RBC 4.69 m/uL (3.80-5.40); RDW 13.5 % (11.5-15.5)
[2024-02-05] MEDS: SODIUM CHLORIDE 0.9% 1,000 ML IV STA (04:40)
[2024-02-05] MEDS: hydrALAZINE HCL 20 MG/ML 1 ML VIAL IVP STA ×2 (04:41→05:19)
[2024-02-05 04:56] LABS: ALT 39 U/L (4-34); AST 36 U/L (14-36); African American GFR (CKD) >90 (>60 ml/min/1.73 sqM); Albumin 4.4 g/dL (3.5-5.0); Alkaline Phosphatase 117 U/L (38-126); Amylase 50 U/L (30-110); Anion Gap 9 mmol/L; Blood Urea Nitrogen 29 mg/dL (7-17); Calcium 9.3 mg/dL (8.4-10.2); Carbon Dioxide 19 mmol/L (22-30); Chloride 111 mmol/L (98-107); Glucose 123 mg/dL (74-99); Lipase 84 U/L (23-300); Non-African American GFR(CKD) 83 (>60 ml/min/1.73 sqM); Potassium 3.9 mmol/L (3.5-5.1); Sodium 139 mmol/L (137-145); Total Bilirubin 0.6 mg/dL (0.2-1.3); Total Protein 7.3 g/dL (6.3-8.2)
[2024-02-05 05:15] LABS: Appearance,Urine Clear (Clear); Bacteria,Urine Rare /hpf; Bilirubin,Urine Negative (Negative); Blood,Urine Small (Negative); Color,Urine Colorless; Glucose,Urine (UA) Negative (Negative); Ketones,Urine Negative (Negative); Leukocyte Esterase,Urine Negative (Negative); Mucus,Urine Rare /hpf; Nitrite,Urine Negative (Negative); Protein,Urine 1+ (Negative); RBC,Urine 18 /hpf (0-5); Specific Gravity,Urine 1.013 (1.001-1.035); Squamous Epithelial Cell,Urine 1 /hpf (0-4); Urobilinogen,Urine <2.0 mg/dL (<2.0); WBC,Urine 6 /hpf (0-5)
--- NOTE | 2024-02-05 07:16 | ED ---
General Adult HPI - General Source: patient, EMS, RN notes reviewed, old records reviewed Mode of arrival: EMS Limitations: no limitations <Alex Mays - Last Filed: 02/05/24 07:09> <Oscar Miramontes - Last Filed: 02/05/24 07:55> - General Chief complaint: Abdominal Pain Stated complaint: Flank Pain Time Seen by Provider: 02/05/24 04:15 - History of Present Illness Initial comments: Patient is an 83-year-old female presents emergency department complaining of abdominal pain. States it was sudden onset abdominal pain this evening. Has not gone away. However it did resolve when she called EMS and arrived to the emergency department for further evaluation. She currently denies any pain. Denies any urinary complaints. Denies any constipation or diarrhea. Last bowel movement was yesterday. Concern for possible kidney stone as it was on the left lower back with radiation along the left flank. History of vomiting. Currently pain-free. Patient is hypertensive. Took her normal medications. Presents for further evaluation. (Alex Mays) - Related Data Home Medications Medication Instructions Recorded Confirmed Isosorbide Mononitrate ER [Imdur] 30 mg PO BID 07/15/23 10/24/23 Losartan Potassium 50 mg PO BID 07/15/23 10/24/23 Nitroglycerin Sl Tabs [Nitrostat] 0.4 mg SUBLINGUAL Q5M PRN 07/15/23 10/24/23 Atenolol (Unk) 50 mg PO DAILY 10/21/23 10/24/23 Previous Rx's Medication Instructions Recorded Cephalexin [Keflex] 500 mg PO Q12HR 7 Days #14 cap 02/05/24 Allergies Allergy/AdvReac Type Severity Reaction Status Date / Time No Known Allergies Allergy Verified 10/24/23 10:42 Review of Systems ROS Other: All systems not noted in ROS Statement are negative. <Alex Mays - Last Filed: 02/05/24 07:09> ROS Other: All systems not noted in ROS Statement are negative. <Oscar Miramontes - Last Filed: 02/05/24 07:55> ROS Statement: Those systems with pertinent positive or pertinent negative responses have been documented in the HPI. Review of Systems: CONST: Denies fever EYES: Denies blurry vision ENT: Denies nasal congestion C/V: Denies Chest pain RESP: Denies shortness of breath GI: Endorses abdominal pain : Denies dysuria SKIN: Denies rash. MSK: Denies joint pain. NEURO: Denies headache (Alex Mays) Past Medical History Past Medical History: Atrial Fibrillation, CVA/TIA, Hypertension, Myocardial Infarction ([place]) Additional Past Medical History / Comment(s): CVA left side weakness 2005, open heart in 2012, pacemaker in 2012 Last Myocardial Infarction Date:: 2012 History of Any Multi-Drug Resistant Organisms: None Reported Past Surgical History: Coronary Bypass/CABG, Pacemaker Additional Past Surgical History / Comment(s): CABG 2012, Past Anesthesia/Blood Transfusion Reactions: No Reported Reaction Type of Cardiac Device: Permanent Pacemaker Device Placement Date:: 2012 Past Psychological History: No Psychological Hx Reported Smoking Status: Never smoker <Alex Mays - Last Filed: 02/05/24 07:09> General Exam Limitations: no limitations <Alex Mays - Last Filed: 02/05/24 07:09> - General Exam Comments Initial Comments: General: Appears in no acute distress. HEAD: Normal with no signs of head trauma. EYES: PERRLA, EOMI, conjunctiva normal, no discharge. ENT: Hearing grossly intact, normal oropharynx. RESPIRATORY: Clear breath sounds bilaterally. No wheezes, rales, or rhonchi. C/V: Regular rate and rhythm. S1 and S2 auscultated, no edema, peripheral pulses 2+ and intact throughout ABD: Abd is soft, nontender, nondistended EXT: Normal range of motion, no obvious deformity SKIN: No rashes or lesions observed on exposed skin. NEURO: Alert and oriented x 4. (Alex Mays) Course Vital Signs 02/05/24 02/05/24 02/05/24 03:46 04:27 05:52 Temperature 97.6 F Pulse Rate 73 Respiratory 16 Rate Blood Pressure 223/123 165/73 O2 Sat by Pulse 94 L Oximetry 02/05/24 06:30 Temperature Pulse Rate 61 Respiratory 16 Rate Blood Pressure 160/63 O2 Sat by Pulse 98 Oximetry Medical Decision Making - Lab Data Result diagrams: 02/05/24 04:23 02/05/24 04:23 - EKG Data -: EKG Interpreted by Me <Alex Mays - Last Filed: 02/05/24 07:09> - Lab Data Result diagrams: 02/05/24 04:23 02/05/24 04:23 <Oscar Miramontes N - Last Filed: 02/05/24 07:55> - Medical Decision Making Was pt. sent in by a medical professional or institution (, [facility], SENIOR PROJECT ARCHITECT, urgent care, hospital, or [facility]...) When possible be specific @ -No Did you speak to anyone other than the patient for history (EMS, parent, family, police, friend...)? What history was obtained from this source @ -No Did you review nursing and triage notes (agree or disagree)? Why? @ -I reviewed and agree with nursing and triage notes Were old charts reviewed (outside hosp., previous admission, EMS record, old EKG, old radiological studies, urgent care reports/EKG's, [facility] records)? Report findings @ -No old charts were reviewed Differential Diagnosis (chest pain, altered mental status, abdominal pain women, abdominal pain men, vaginal bleeding, weakness, fever, dyspnea, syncope, headache, dizziness, GI bleed, back pain, seizure, CVA, palpatations, mental health, musculoskeletal)? @ -Differential Abdominal Pain Women: Appendicitis, Cholecystitis, diverticulosis, ischemic bowel, pancreatitis, hepatitis, UTI, gastroenteritis, AAA, incarcerated hernia, bowel obstruction, constipation, inflammatory bowel, hepatitis, peptic ulcer disease, splenic infarction, perforated viscus, vulvitis, ovarian torsion, PID, kidney stone, placenta abruption, this is not meant to be an all-inclusive list EKG interpreted by me (3pts min.). @ -As above X-rays interpreted by me (1pt min.). @ -None done CT interpreted by me (1pt min.). @ -Pending U/S interpreted by me (1pt. min.). @ -None done What testing was considered but not performed or refused? (CT, X-rays, U/S, labs)? Why? @ -None What meds were considered but not given or refused? Why? @ -None Did you discuss the management of the patient with other professionals (professionals i.e. , [facility], SENIOR PROJECT ARCHITECT, lab, RT, psych nurse, social science instructor, executive vice president, teacher, immigration officer, immigration case manager)? Give summary @ -No Was smoking cessation discussed for >3mins.? @ -No Was critical care preformed (if so, how long)? @ -No Were there social determinants of health that impacted care today? How? (Homelessness, low income, unemployed, alcoholism, drug addiction, transportation, low edu. Level, literacy, decrease access to med. care, custodial, rehab)? @ -No Was there de-escalation of care discussed even if they declined (Discuss DNR or withdrawal of care, Hospice)? DNR status @ -No What co-morbidities impacted this encounter? (DM, HTN, Smoking, COPD, CAD, Cancer, CVA, ARF, Chemo, Hep., AIDS, mental health diagnosis, sleep apnea, morbid obesity)? @ -None Was patient admitted / discharged? Hospital course, mention meds given and route, prescriptions, significant lab abnormalities, going to OR and other pertinent info. @ -Based on the patient's presentation and physical exam, I am concerned for acute intra-abdominal pathology for patient's symptoms. She is currently asymptomatic. However she is hypertensive. She will be given IV hydralazine for her hypertension. Patient given IV fluids as well. She was in agreement this plan. Vital signs improved after hydralazine his blood pressure is now 160/60. EKG shows no signs of acute ischemia. Mild leukocytosis of 13. Patient does have some blood located on urinalysis. CT imaging is still pending. Patient signed out to Dr. Miramontes pending results of CT imaging. Undiagnosed new problem with uncertain prognosis? @ -No Drug Therapy requiring intensive monitoring for toxicity (Heparin, Nitro, Insulin, Cardizem)? @ -No Were any procedures done? @ -No (Alex Mays) Patient reevaluated after signout, showing a stone in the left UPJ with mild hydro-. Patient reevaluated she has no pain whatsoever. Patient is informed of results and need to follow-up with urology. She is instructed to take Tylenol and Motrin for her pain. Urine culture is obtained due to bacteria in the presence of stone. She will be started on prophylactic Keflex. Patient given strict return parameters. (Oscar Miramontes) - Lab Data Lab Results 02/05/24 02/05/24 02/05/24 Range/Units 04:23 04:23 04:26 WBC 13.0 H (3.8-10.6) k/uL RBC 4.69 (3.80-5.40) m/uL Hgb 14.3 (11.4-16.0) gm/dL Hct 43.3 (34.0-46.0) % MCV 92.3 (80.0-100.0) fL MCH 30.5 (25.0-35.0) pg MCHC 33.1 (31.0-37.0) g/dL RDW 13.5 (11.5-15.5) % Plt Count 196 (150-450) k/uL MPV 9.7 Neutrophils % 68 % Lymphocytes % 22 % Monocytes % 6 % Eosinophils % 2 % Basophils % 0 % Neutrophils # 8.9 H (1.3-7.7) k/uL Lymphocytes # 2.9 (1.0-4.8) k/uL Monocytes # 0.7 (0-1.0) k/uL Eosinophils # 0.3 (0-0.7) k/uL Basophils # 0.1 (0-0.2) k/uL Sodium 139 (137-145) mmol/L Potassium 3.9 (3.5-5.1) mmol/L Chloride 111 H (98-107) mmol/L Carbon Dioxide 19 L (22-30) mmol/L Anion Gap 9 mmol/L BUN 29 H (7-17) mg/dL Creatinine 0.63 (0.52-1.04) mg/dL Est GFR (CKD-EPI)AfAm >90 (>60 ml/min/1.73 sqM) Est GFR (CKD-EPI)NonAf 83 (>60 ml/min/1.73 sqM) Glucose 123 H (74-99) mg/dL Calcium 9.3 (8.4-10.2) mg/dL Total Bilirubin 0.6 (0.2-1.3) mg/dL AST 36 (14-36) U/L ALT 39 H (4-34) U/L Alkaline Phosphatase 117 (38-126) U/L Total Protein 7.3 (6.3-8.2) g/dL Albumin 4.4 (3.5-5.0) g/dL Amylase 50 (30-110) U/L Lipase 84 (23-300) U/L Urine Color Colorless Urine Appearance Clear (Clear) Urine pH 6.0 (5.0-8.0) Ur Specific [place] 1.013 (1.001-1.035) Urine Protein 1+ H (Negative) Urine Glucose (UA) Negative (Negative) Urine Ketones Negative (Negative) Urine Blood Small H (Negative) Urine Nitrite Negative (Negative) Urine Bilirubin Negative (Negative) Urine Urobilinogen <2.0 (<2.0) mg/dL Ur Leukocyte Esterase Negative (Negative) Urine RBC 18 H (0-5) /hpf Urine WBC 6 H (0-5) /hpf Ur Squamous Epith Cells 1 (0-4) /hpf Urine Bacteria Rare H (None) /hpf Urine Mucus Rare H (None) /hpf - EKG Data EKG Comments: 12-lead Electrocardiogram Interpretation Note EKG was reviewed and interpreted by myself. 12-lead ECG performed at 0416 is interpreted by me as revealing normal sinus rhythm at a rate of 64 beats per minute.[place] is normal. UT interval is 152 ms, QRS duration is 86 ms, QTc is 425 ms.. There were no ST or T wave abnormalities to suggest myocardial ischemia or injury. R wave progression across the precordium was satisfactory. By my interpretation this EKG is non-diagnostic for acute ischemia. (Alex Mays) Disposition <Alex Mays - Last Filed: 02/05/24 07:09> Is patient prescribed a controlled substance at d/c from ED?: No Time of Disposition: 07:54 <Oscar Miramontes - Last Filed: 02/05/24 07:55> Clinical Impression: Kidney stone on left side Disposition: HOME SELF-CARE Condition: Good Instructions (If sedation given, give patient instructions): Kidney Stones (ED) Additional Instructions: Please take Tylenol and Motrin for pain. If pain is severe. Please return to the emergency department. Prescriptions: Cephalexin [Keflex] 500 mg PO Q12HR 7 Days #14 cap Referrals: Robert Lerma DO [Primary Care Provider] - 1-2 days Rajinder Mcclellan MD [STAFF PHYSICIAN] - 1-2 days
--- NOTE | 2024-02-05 07:31 | CT ---
EXAMINATION TYPE: CT abdomen pelvis wo con CT DLP: 607.8 mGycm, Automated exposure control for dose reduction was used. DATE OF EXAM: 02/05/2024 4:55 AM COMPARISON: None CLINICAL INDICATION:Female, 83 years old with history of left flank pain; left sided flank pain, diff iculty urinating x1 day TECHNIQUE: Axial CT abdomen pelvis wo con;Sagittal and coronal reformats were created on a separate workstation. Contrast used: mL of , (none if empty) Oral contrast used: without Oral Contrast (none if empty) FINDINGS: LOWER CHEST: The heart is enlarged for size. Intralobular septal thickening. Cardiac conduction leads terminating the right ventricle and atrium. High density in the coronary arteries possibly represent ing calcifications or stents. Partially calcified lymph node noted near the aorta. ABDOMEN LIVER: Scattered calcified granulomas. GALLBLADDER AND BILE DUCTS: Unremarkable. PANCREAS: Unremarkable. SPLEEN: Scattered calcified granulomas. ADRENAL GLANDS: Unremarkable. KIDNEYS AND URETERS: Mild left hydronephrosis secondary to obstructing 6 cm calculus at the ureterope lvic junction. Additional smaller left renal calculi. No right renal calculi and no right hydronephro sis. PELVIS BLADDER: Unremarkable REPRODUCTIVE: The uterus is surgically absent. ABDOMEN & PELVIS STOMACH AND BOWEL: No evidence of bowel obstruction. PERITONEUM/RETROPERITONEUM: No evidence of pneumoperitoneum or free fluid. VASCULATURE: Moderate to severe atherosclerotic calcifications are present throughout the abdominal a [place] and its branches. No evidence of aortic aneurysm. MUSCULOSKELETAL: No acute osseous abnormalities. Moderate disc degeneration changes are present throu ghout the thoracolumbar spine. LYMPH NODES: No gross evidence for lymphadenopathy. SOFT TISSUE/ABDOMINAL WALL: Fat-containing umbilical hernia. IMPRESSION: 1. Mild left hydronephrosis secondary to obstructing 6 cm calculus at the ureteropelvic junction. Ad ditional smaller left renal calculi. 2. Congestive heart failure with cardiomegaly and pulmonary vascular congestion and trace bilateral pleural effusions.
[2024-02-05] MEDS: KETOROLAC 15 MG/ML 1 ML VIAL IVP STA (07:57)
[2024-02-05 09:33] VITALS: BP 157/68; PULSE 65; RESP 18; TEMP 97.9
== END 2024-02-05 09:47 | disposition home or self-care (01) ==
LOC: EC 03:43
DX: N13.2 Hydronephrosis with renal and ureteral calculous obstruction (principal); D72.829 Elevated white blood cell count, unspecified; B95.1 Streptococcus, group B, as the cause of diseases classified elsewhere; Z86.73 Personal history of transient ischemic attack (TIA), and cerebral infarction without residual deficits
CPT/HCPCS: 36415; 93005; 80053; 82150; 83690; 85025; 81001; 87086; 74176; 99285; 96374; 96375; 96376; 96361; J0360; J1885

== ENCOUNTER → 2024-04-29 | Outpatient (CLI) | payer MEDICARE ==
[2024-04-29 17:59] LABS: HCT 44.5 % (37.2-46.3); MCH 29.5 pg (27.0-32.0); MCHC 31.5 g/dL (32.0-37.0); MCV 93.9 FL (80.0-97.0); Mean Platelet Volume 11.4 FL (9.5-12.2); NRBC Per 100 WBC 0 X 10*3/uL (0.00-0.01); Platelet Count 173 X 10*3/uL (140-440); RBC 4.74 X 10*6/uL (4.10-5.20); RDW 13.6 % (11.5-14.5); WBC 7.73 X 10*3/uL (4.50-10.00)
[2024-04-29 18:25] LABS: Chol/HDL Ratio 3.54 Ratio
[2024-04-29 18:26] LABS: ALT 23 U/L (8-44); AST 22 U/L (13-35); BUN/Creat Ratio 29.12 Ratio (12.00-20.00); Blood Urea Nitrogen 23.3 mg/dL (9.0-27.0); Calcium 9.4 mg/dL (8.7-10.3); Carbon Dioxide 24.4 mmol/L (21.6-31.8); Chloride 107 mmol/L (96-109); Glucose 92 mg/dL (70-110); LDL Cholesterol,Calculated 116.8 mg/dL (0.0-131.0); Potassium 4.5 mmol/L (3.5-5.5); Sodium 141 mmol/L (135-145)
== END | disposition home or self-care (01) ==
LOC: LABWHC1 14:53
PROVIDERS: ATTEND Family Medicine
DX: I10 Essential (primary) hypertension (principal); E78.5 Hyperlipidemia, unspecified; R73.03 Prediabetes
CPT/HCPCS: 36415; 80048; 80061; 82306; 83036; 84450; 84460; 85027

== ENCOUNTER 2024-06-09 21:50 | Observation (INO) | payer MEDICARE ==
--- NOTE | 2024-06-09 22:32 | ED ---
Dizziness HPI - General Chief Complaint: Dizziness Stated Complaint: Dizziness Time Seen by Provider: 06/09/24 22:00 Source: EMS Mode of arrival: EMS - History of Present Illness Initial Comments: Pt is an 84 y/o female PMH prior CVA/TIA, atrial fibrillation on holistic blood thinner "nanokinase" , presenting today for sudden onset dizziness. Patient states she was watching TV this evening with her when she suddenly felt dizzy, like the room was spinning and the floor was tilting. She states she experienced this prior to her last stroke which ultimately resulted in left- sided weakness. She states at that time she did not come in in time to prevent retirement deficits. States symptoms have since resolved. She denies nausea, vomiting, changes in vision, numbness, weakness, slurred speech, fevers, chills, chest pain, shortness of breath, abdominal pain. States is due for her home antihypertensives. - Related Data Home Medications Medication Instructions Recorded Confirmed Isosorbide Mononitrate ER [Imdur] 30 mg PO BID 07/15/23 06/10/24 Losartan Potassium 50 mg PO BID 07/15/23 06/10/24 Previous Rx's Medication Instructions Recorded Aspirin 81 mg PO DAILY tab 06/11/24 Atorvastatin [Lipitor] 40 mg PO DAILY #30 tab 06/11/24 Chlorthalidone 25 mg PO DAILY #30 tablet 06/11/24 Clopidogrel [Plavix] 75 mg PO DAILY #30 tab 06/11/24 Labetalol [Trandate] 200 mg PO BID #60 tab 06/11/24 Allergies Allergy/AdvReac Type Severity Reaction Status Date / Time No Known Allergies Allergy Verified 06/10/24 07:48 Review of Systems ROS Statement: Those systems with pertinent positive or pertinent negative responses have been documented in the HPI. ROS Other: All systems not noted in ROS Statement are negative. Past Medical History Past Medical History: Atrial Fibrillation, CVA/TIA, Hypertension, Myocardial Infarction ([place]) Additional Past Medical History / Comment(s): CVA left side weakness 2005, open heart in 2012, pacemaker in 2012 Last Myocardial Infarction Date:: 2012 History of Any Multi-Drug Resistant Organisms: None Reported Past Surgical History: Coronary Bypass/CABG, Pacemaker Additional Past Surgical History / Comment(s): CABG 2012, Past Anesthesia/Blood Transfusion Reactions: No Reported Reaction Type of Cardiac Device: Permanent Pacemaker Device Placement Date:: 2012 Past Psychological History: No Psychological Hx Reported Smoking Status: Never smoker General Exam - General Exam Comments Initial Comments: PE: CONSTITUTIONAL: No apparent distress, well appearing SKIN: Warm, dry, no jaundice, hives or petechiae EYES: Pupils are equally round, extraocular movements intact without nystagmus, clear conjunctiva, non-icteric sclera HENT: Normocephalic, atraumatic, moist mucus membranes, oropharynx clear without exudates NECK: , Full range of motion, normal appearance PULMONARY: Clear to auscultation without wheezes, rhonchi, or rales, normal excursion, no accessory muscle use and no stridor CARDIOVASCULAR: Regular rate, rhythm, normal S1 and S2. No appreciated murmurs, rubs or gallops. Strong radial pulses with intact distal perfusion. 2+ DP pulse RLE, 1+ DP pulse LLE, No lower extremity edema GASTROINTESTINAL: Soft, active bowel sounds throughout, non-tender, non- distended, no palpable masses, no rebound or guarding. No hepatosplenomegaly GENITOURINARY: MUSCULOSKELETAL: No midline spinal TTP, Extremities have no gross deformity, no edema, redness, or swelling. No calf swelling. Chronic muscle contractures LUE and LLE, 4/5 strength LUE and LLE, 5/5 strength RUE and RLE NEUROLOGIC:_a/o x 3, GCS 15, normal mentation and speech. Moves all extremities x 4, chronic contractures and weakness of Left sided extremities as noted above, pt states is chronic, otherwise cranial nerves: II (visual kulkarni without defects), III, IV and (extraocular movements are intact, pupils are equal with normal reaction to light), V (intact facial sensation and jaw opening), VII (no facial droop), IX and X (normal palate movement, midline uvula, normal voice), XI (symmetrical shoulder shrug and lateral head rotation against resistance), XII (midline tongue protrusion). Motor strength noted above. No abnormal movements. Normal muscle tone. Sensation to light touch is intact bilaterally. No cerebellar signs ([id number], [id number] are normal) PSYCHIATRIC:_normal mood and affect, thought process is clear and linear Course Vital Signs 06/09/24 06/09/24 06/09/24 21:51 23:10 23:53 Temperature 98.0 F Pulse Rate 60 67 Respiratory 19 20 Rate Blood Pressure 221/91 217/96 206/91 O2 Sat by Pulse 99 97 Oximetry 06/10/24 06/10/24 06/10/24 00:04 00:34 00:53 Temperature 98.4 F Pulse Rate 60 60 Respiratory 19 18 Rate Blood Pressure 197/83 180/80 178/76 O2 Sat by Pulse 95 96 Oximetry 06/10/24 06/10/24 06/10/24 01:32 03:17 04:56 Temperature Pulse Rate 79 62 63 Respiratory 18 18 18 Rate Blood Pressure 175/86 173/87 193/84 O2 Sat by Pulse 92 L 96 96 Oximetry 06/10/24 06/10/24 06/10/24 05:13 05:30 06:16 Temperature 98.4 F Pulse Rate 68 64 60 Respiratory 18 18 18 Rate Blood Pressure 189/86 177/75 172/76 O2 Sat by Pulse 97 95 95 Oximetry 06/10/24 08:33 Temperature 97.9 F Pulse Rate 61 Respiratory 16 Rate Blood Pressure 161/64 O2 Sat by Pulse 94 L Oximetry EKG Findings - EKG Comments: EKG Findings:: Atrial paced rhythm, rate 70 bpm [place] interval 170 ms, QRS duration 86 ms, QT/QTc 390/418 ms, normal axis,Compared to EKG performed on 02/05/2024, changes in prior from prior include Q wave in lead V3, question half mm ST elevation in aVF though no reciprocal changes or new ST elevations elsewhere, PVCs present Medical Decision Making - Medical Decision Making Was pt. sent in by a medical professional or institution (, PA, PROTECTIVE OFFICER, urgent care, hospital, or group home...) When possible be specific @ -No Did you speak to anyone other than the patient for history (EMS, parent, family, police, friend...)? What history was obtained from this source @ -No Did you review nursing and triage notes (agree or disagree)? Why? @ -I reviewed and agree with nursing and triage notes Were old charts reviewed (outside hosp., previous admission, EMS record, old EKG, old radiological studies, urgent care reports/EKG's, group home records)? Report findings @ -Medical Records reviewed Differential Diagnosis (chest pain, altered mental status, abdominal pain women, abdominal pain men, vaginal bleeding, weakness, fever, dyspnea, syncope, headache, dizziness, GI bleed, back pain, seizure, CVA, palpatations, mental health, musculoskeletal)? @Differential CVA Ischemic stroke, hemorrhagic stroke, brain tumor, atypical migraine, Wernicke's encephalopathy, seizure, multiple sclerosis, meningitis, encephalitis, hypoglycemia, Guillain-Crenshaw, electrolytes disturbance, myasthenia gravis.... This is not meant to be an all-inclusive list EKG interpreted by me (3pts min.). @ -As above X-rays interpreted by me (1pt min.). @ -None done CT interpreted by me (1pt min.). @ -CT brain w/o acute process, hemorrhage or mass, CTA without dissection, CTA chest no evidence of dissection U/S interpreted by me (1pt. min.). @ -None done What testing was considered but not performed or refused? (CT, X-rays, U/S, labs)? Why? @ -None What meds were considered but not given or refused? Why? @ -None Did you discuss the management of the patient with other professionals (professionals i.e. , PA, PROTECTIVE OFFICER, lab, RT, psych nurse, child protective services social worker, principal investigator, teacher, training systems officer, lining caser)? Give summary @ Discussed with Dr. Almonte, see below Was smoking cessation discussed for >3mins.? @ -No Was critical care preformed (if so, how long)? @Yes, 35 minutes Were there social determinants of health that impacted care today? How? (Homelessness, low income, unemployed, alcoholism, drug addiction, t ransportation, low edu. Level, literacy, decrease access to med. care, shelter, rehab)? @ -No Was there de-escalation of care discussed even if they declined (Discuss DNR or withdrawal of care, Hospice)? @ -No What co-morbidities impacted this encounter? (DM, HTN, Smoking, COPD, CAD, Cancer, CVA, ARF, Chemo, Hep., AIDS, mental health diagnosis, sleep apnea, morbid obesity)? @ -Atrial fibrillation, hypertension, prior CVA Was patient admitted / discharged? Hospital course, mention meds given and ro agus, prescriptions, significant lab abnormalities, going to OR and other pertinent info. @ -Admission- Observation Patient is an 84-year-old female past medical history of prior CVA, CAD presenting today for dizziness. Patient states she is sitting watching TV when she had sudden onset dizziness like the floor was tilting of the room spinning. States that this is how she felt prior to her last stroke which ultimately resulted in left-sided paralysis. Symptoms resolved prior to arrival. She currently denies any chest pain, dizziness, lightheadedness, changes in vision, new numbness or weakness, does have chronic weakness of left upper and left lower extremity. No new focal neurologic deficits on exam. Discussed with patient TIA workup. Patient is notably hypertensive on arrival, ordered patient's home meds which she was due for prior to coming [facility]. Additionally, patient notes sharp atraumatic mid back pain x1 day. Is not reproducible on exam. Given extent of hypertension, unequal pulse in LE (1+ LLE, 2+ RLE), and atraumatic back pain, ordered CT dissection study as well. CT notable for critical stenosis of KAREEN, discussed with Dr. Almonte, neurointerventionalist, no need to start on heparin, initiate plavix, ASA, lipitor. After administration of patient's home medications, blood pressure 178/76. Given patient significant medical history of admission last year for dizziness that ultimately resulted in findings of CAD, and dizziness that ultimately resulted in CVA, will admit for obs. Updated patient to findings and plan for admission, pt agreeable with plan. Discussed case with Dr. Rinaldi, who kindly accepts patient for admission. Pt admitted in stable condition. Of note, while boarding in ED, BP did raise to 194 systolic again and patient is not due for home antihypertensives for 2-3 hours, ordered 10 mg IV labetolol. Undiagnosed new problem with uncertain prognosis? @ -No Drug Therapy requiring intensive monitoring for toxicity (Heparin, Nitro, Insulin, Cardizem)? @ -No Were any procedures done? @ -No Diagnosis/symptom? @TIA, hypertensive urgency Acute, or Chronic, or Acute on Chronic? @ Acute Uncomplicated (without systemic symptoms) or Complicated (systemic symptoms)? @Complicated Side effects of treatment? @ -No Exacerbation, Progression, or Severe Exacerbation? @ -No Poses a threat to life or bodily function? How? (Chest pain, [place], [place], pneumonia, PE, COPD, DKA, ARF, appy, cholecystitis, CVA, Diverticulitis, Homicidal, Suicidal, threat to staff... and all critical care pts) @ Yes - Lab Data Result diagrams: 06/09/24 22:37 06/09/24 22:37 Lab Results 06/09/24 06/09/24 06/09/24 Range/Units 22:37 22:37 22:37 WBC 10.3 (3.8-10.6) k/uL RBC 4.82 (3.80-5.40) m/uL Hgb 13.4 (11.4-16.0) gm/dL Hct 44.6 (34.0-46.0) % MCV 92.5 (80.0-100.0) fL MCH 27.8 (25.0-35.0) pg MCHC 30.0 L (31.0-37.0) g/dL RDW 13.5 (11.5-15.5) % Plt Count 194 (150-450) k/uL MPV 9.9 Neutrophils % 55 % Lymphocytes % 34 % Monocytes % 7 % Eosinophils % 2 % Basophils % 0 % Neutrophils # 5.7 (1.3-7.7) k/uL Lymphocytes # 3.5 (1.0-4.8) k/uL Monocytes # 0.7 (0-1.0) k/uL Eosinophils # 0.2 (0-0.7) k/uL Basophils # 0.0 (0-0.2) k/uL PT (10.0-12.5) sec INR (<1.2) Sodium 139 (137-145) mmol/L Potassium 4.0 (3.5-5.1) mmol/L Chloride 110 H (98-107) mmol/L Carbon Dioxide 24 (22-30) mmol/L Anion Gap 5 mmol/L BUN 20 H (7-17) mg/dL Creatinine 0.64 (0.52-1.04) mg/dL Est GFR (CKD-EPI)AfAm >90 (>60 ml/min/1.73 sqM) Est GFR (CKD-EPI)NonAf 82 (>60 ml/min/1.73 sqM) Glucose 101 H (74-99) mg/dL Calcium 9.7 (8.4-10.2) mg/dL Magnesium (1.6-2.3) mg/dL Total Bilirubin 0.6 (0.2-1.3) mg/dL AST 30 (14-36) U/L ALT 29 (4-34) U/L Alkaline Phosphatase 95 (38-126) U/L Troponin I <0.012 (0.000-0.034) ng/mL Total Protein 7.5 (6.3-8.2) g/dL Albumin 4.3 (3.5-5.0) g/dL Triglycerides (0.00-149.00) mg/dL Cholesterol (0.00-200.00) mg/dL LDL Cholesterol, Calc (0.0-131.0) mg/dL VLDL Cholesterol, Calc (5.00-40.00) mg/dL HDL Cholesterol (40.00-60.00) mg/dL Cholesterol/HDL Ratio Ratio Urine Color Urine Appearance (Clear) Urine pH (5.0-8.0) Ur Specific Bradford (1.001-1.035) Urine Protein (Negative) Urine Glucose (UA) (Negative) Urine Ketones (Negative) Urine Blood (Negative) Urine Nitrite (Negative) Urine Bilirubin (Negative) Urine Urobilinogen (<2.0) mg/dL Ur Leukocyte Esterase (Negative) 06/09/24 06/09/24 06/09/24 Range/Units 22:37 22:37 22:37 WBC (3.8-10.6) k/uL RBC (3.80-5.40) m/uL Hgb (11.4-16.0) gm/dL Hct (34.0-46.0) % MCV (80.0-100.0) fL MCH (25.0-35.0) pg MCHC (31.0-37.0) g/dL RDW (11.5-15.5) % Plt Count (150-450) k/uL MPV Neutrophils % % Lymphocytes % % Monocytes % % Eosinophils % % Basophils % % Neutrophils # (1.3-7.7) k/uL Lymphocytes # (1.0-4.8) k/uL Monocytes # (0-1.0) k/uL Eosinophils # (0-0.7) k/uL Basophils # (0-0.2) k/uL PT 10.3 (10.0-12.5) sec INR 0.9 (<1.2) Sodium (137-145) mmol/L Potassium (3.5-5.1) mmol/L Chloride (98-107) mmol/L Carbon Dioxide (22-30) mmol/L Anion Gap mmol/L BUN (7-17) mg/dL Creatinine (0.52-1.04) mg/dL Est GFR (CKD-EPI)AfAm (>60 ml/min/1.73 sqM) Est GFR (CKD-EPI)NonAf (>60 ml/min/1.73 sqM) Glucose (74-99) mg/dL Calcium (8.4-10.2) mg/dL Magnesium 2.0 (1.6-2.3) mg/dL Total Bilirubin (0.2-1.3) mg/dL AST (14-36) U/L ALT (4-34) U/L Alkaline Phosphatase (38-126) U/L Troponin I (0.000-0.034) ng/mL Total Protein (6.3-8.2) g/dL Albumin (3.5-5.0) g/dL Triglycerides (0.00-149.00) mg/dL Cholesterol (0.00-200.00) mg/dL LDL Cholesterol, Calc (0.0-131.0) mg/dL VLDL Cholesterol, Calc (5.00-40.00) mg/dL HDL Cholesterol (40.00-60.00) mg/dL Cholesterol/HDL Ratio Ratio Urine Color Colorless Urine Appearance Clear (Clear) Urine pH 5.0 (5.0-8.0) Ur Specific Bradford 1.006 (1.001-1.035) Urine Protein Negative (Negative) Urine Glucose (UA) Negative (Negative) Urine Ketones Negative (Negative) Urine Blood Negative (Negative) Urine Nitrite Negative (Negative) Urine Bilirubin Negative (Negative) Urine Urobilinogen <2.0 (<2.0) mg/dL Ur Leukocyte Esterase Negative (Negative) 06/09/24 06/10/24 Range/Units 22:37 01:32 WBC (3.8-10.6) k/uL RBC (3.80-5.40) m/uL Hgb (11.4-16.0) gm/dL Hct (34.0-46.0) % MCV (80.0-100.0) fL MCH (25.0-35.0) pg MCHC (31.0-37.0) g/dL RDW (11.5-15.5) % Plt Count (150-450) k/uL MPV Neutrophils % % Lymphocytes % % Monocytes % % Eosinophils % % Basophils % % Neutrophils # (1.3-7.7) k/uL Lymphocytes # (1.0-4.8) k/uL Monocytes # (0-1.0) k/uL Eosinophils # (0-0.7) k/uL Basophils # (0-0.2) k/uL PT (10.0-12.5) sec INR (<1.2) Sodium (137-145) mmol/L Potassium (3.5-5.1) mmol/L Chloride (98-107) mmol/L Carbon Dioxide (22-30) mmol/L Anion Gap mmol/L BUN (7-17) mg/dL Creatinine (0.52-1.04) mg/dL Est GFR (CKD-EPI)AfAm (>60 ml/min/1.73 sqM) Est GFR (CKD-EPI)NonAf (>60 ml/min/1.73 sqM) Glucose (74-99) mg/dL Calcium (8.4-10.2) mg/dL Magnesium (1.6-2.3) mg/dL Total Bilirubin (0.2-1.3) mg/dL AST (14-36) U/L ALT (4-34) U/L Alkaline Phosphatase (38-126) U/L Troponin I 0.014 (0.000-0.034) ng/mL Total Protein (6.3-8.2) g/dL Albumin (3.5-5.0) g/dL Triglycerides 157.00 H (0.00-149.00) mg/dL Cholesterol 233.00 H (0.00-200.00) mg/dL LDL Cholesterol, Calc 133.8 H (0.0-131.0) mg/dL VLDL Cholesterol, Calc 31.40 (5.00-40.00) mg/dL HDL Cholesterol 67.80 H (40.00-60.00) mg/dL Cholesterol/HDL Ratio 3.44 Ratio Urine Color Urine Appearance (Clear) Urine pH (5.0-8.0) Ur Specific Bradford (1.001-1.035) Urine Protein (Negative) Urine Glucose (UA) (Negative) Urine Ketones (Negative) Urine Blood (Negative) Urine Nitrite (Negative) Urine Bilirubin (Negative) Urine Urobilinogen (<2.0) mg/dL Ur Leukocyte Esterase (Negative) Disposition Clinical Impression: TIA (transient ischemic attack) Disposition: ADMITTED IP TO THIS HOSP
[2024-06-09 22:47] LABS: Basophils % (A) 0 %; Eosinophils # (A) 0.2 k/uL (0-0.7); Eosinophils % (A) 2 %; HCT 44.6 % (34.0-46.0); HGB 13.4 gm/dL (11.4-16.0); Lymphocytes # (A) 3.5 k/uL (1.0-4.8); Lymphocytes % (A) 34 %; MCH 27.8 pg (25.0-35.0); MCV 92.5 fL (80.0-100.0); Mean Platelet Volume 9.9; Monocytes # (A) 0.7 k/uL (0-1.0); Monocytes % (A) 7 %; Neutrophils # (A) 5.7 k/uL (1.3-7.7); Neutrophils % (A) 55 %; Platelet Count 194 k/uL (150-450); RBC 4.82 m/uL (3.80-5.40); RDW 13.5 % (11.5-15.5); WBC 10.3 k/uL (3.8-10.6)
[2024-06-09] MEDS: SODIUM CHLORIDE 0.9% 500 ML 500 ML IV STA (22:48)
[2024-06-09 22:49] LABS: Appearance,Urine Clear (Clear); Bilirubin,Urine Negative (Negative); Blood,Urine Negative (Negative); Color,Urine Colorless; Glucose,Urine (UA) Negative (Negative); Ketones,Urine Negative (Negative); Leukocyte Esterase,Urine Negative (Negative); Nitrite,Urine Negative (Negative); Protein,Urine Negative (Negative); Specific Gravity,Urine 1.006 (1.001-1.035); Urobilinogen,Urine <2.0 mg/dL (<2.0)
[2024-06-09] MEDS: ISOSORBIDE MONONITRATE ER 30 MG TAB.ER.24H PO STA (22:50)
[2024-06-09] MEDS: LOSARTAN 50 MG TAB PO STA (22:50)
[2024-06-09] MEDS: atenoloL 50 MG TAB PO STA (22:50)
[2024-06-09 22:52] LABS: INR 0.9 (<1.2); Prothrombin Time 10.3 sec (10.0-12.5)
[2024-06-09 22:59] LABS: ALT 29 U/L (4-34); AST 30 U/L (14-36); African American GFR (CKD) >90 (>60 ml/min/1.73 sqM); Albumin 4.3 g/dL (3.5-5.0); Alkaline Phosphatase 95 U/L (38-126); Anion Gap 5 mmol/L; Blood Urea Nitrogen 20 mg/dL (7-17); Calcium 9.7 mg/dL (8.4-10.2); Carbon Dioxide 24 mmol/L (22-30); Chloride 110 mmol/L (98-107); Glucose 101 mg/dL (74-99); Non-African American GFR(CKD) 82 (>60 ml/min/1.73 sqM); Sodium 139 mmol/L (137-145); Total Bilirubin 0.6 mg/dL (0.2-1.3); Total Protein 7.5 g/dL (6.3-8.2)
--- NOTE | 2024-06-10 00:09 | CT ---
EXAM: CT Head Without Intravenous Contrast CLINICAL HISTORY: TIA TECHNIQUE: Axial computed tomography images of the head/brain without intravenous contrast. CTDI is 48.8 mGy and DLP is 1143 mGy-cm. This CT exam was performed using one or more of the following dose reduction techniques: automated exposure control, adjustment of the mA and/or kV according to patient size, and/or use of iterative reconstruction technique. COMPARISON: No relevant prior studies available. FINDINGS: Brain: There are a few areas of decreased attenuation in the deep cerebral white matter consistent with mild small vessel ischemic/degenerative changes. The cerebral and cerebellar sulci are mildly prominent consistent with mild brain atrophy. No intracranial hemorrhage. No significant mass effect. No evidence for cortical infarct. Ventricles: Unremarkable. No ventriculomegaly. Bones/joints: Unremarkable. No acute fracture. Soft tissues: Unremarkable. Vasculature: Atherosclerotic disease. Extensive atherosclerotic calcification of the cavernous and supraclinoid internal carotid arteries noted. Atherosclerotic calcification of the proximal intracranial vertebral arteries. Sinuses: Unremarkable as visualized. No acute sinusitis. Mastoid air cells: Unremarkable as visualized. No mastoid effusion. IMPRESSION: No acute intracranial process identified. Underlying incidental presumed chronic age-related findings.
--- NOTE | 2024-06-10 00:30 | CT ---
EXAM: CT Angiography Head With Intravenous Contrast CLINICAL HISTORY: TIA TECHNIQUE: Axial computed tomographic angiography images of the head with intravenous contrast. CTDI is 10.7 mGy and DLP is 502.5 mGy-cm. This CT exam was performed using one or more of the following dose reduction techniques: automated exposure control, adjustment of the mA and/or kV according to patient size, and/or use of iterative reconstruction technique. MIP reconstructed images were created and reviewed. COMPARISON: No relevant prior studies available. FINDINGS: Right internal carotid artery: . Extensive atherosclerotic calcification of the right cavernous internal carotid artery. There is mild narrowing involving the distal cavernous segment with approximately 50% luminal narrowing. The supraclinoid segment is patent. No aneurysm. Right anterior cerebral artery: The right A1 segment is absent. The right anterior cerebral artery is patent with perfusion from the anterior communicating artery. Right middle cerebral artery: Long segment at least moderate narrowing of the right M1 segment, measuring only 1-2 mm in diameter throughout the M1 segment with a suggestion of poststenotic relative ectasia immediately proximal to the bifurcation of the right M2/M3 segments. No distal branch occlusion. Right posterior cerebral artery: Short segment critical stenosis involving the proximal right posterior cerebral artery. The mid to distal posterior cerebral artery is patent. No aneurysm. Right vertebral artery: Extensive atherosclerotic calcification of the distal right vertebral artery with long segment irregular narrowing. There is a critical stenosis or short segment occlusion of the distal right vertebral artery adjacent to the confluence. Left internal carotid artery: Atherosclerotic calcification of the left cavernous and supraclinoid internal carotid artery without significant narrowing. The proximal petrous segment of the left internal carotid artery demonstrates a focal moderate, proximally 50% luminal stenosis (series 501; image 128). The left internal carotid artery is otherwise patent. Heavy calcification of the cavernous segment without significant stenosis. No aneurysm. Left anterior cerebral artery: Unremarkable. No occlusion or significant stenosis. No aneurysm. Left middle cerebral artery: Mild narrowing of the distal left M1 segment. No occlusion. The M2/M3 branches are patent. No aneurysm. Left posterior cerebral artery: Unremarkable. No occlusion or significant stenosis. No aneurysm. Left vertebral artery: Atherosclerotic calcification of the left vertebral artery which is dominant. Mild narrowing proximally. No critical stenosis. Basilar artery: Unremarkable. No occlusion or significant stenosis. No aneurysm. Brain: Abnormal parenchymal enhancement. IMPRESSION: 1. Long segment at least moderate narrowing of the right M1 segment, measuring only 1-2 mm in diameter throughout the M1 segment with a suggestion of poststenotic relative ectasia immediately proximal to the bifurcation of the right M2/M3 segments. No distal branch occlusion. Moderate narrowing of the cavernous segment of the right internal carotid artery, estimated at 50%. 2. Mild narrowing of the distal left M1 segment. No occlusion. The M2/M3 branches are patent. 3. Extensive atherosclerotic calcification of the distal right vertebral artery with long segment irregular narrowing. There is a critical stenosis or short segment occlusion of the distal right vertebral artery adjacent to the confluence. 4. Atherosclerotic calcification of the left vertebral artery which is dominant. Mild narrowing proximally. No critical stenosis. 5. Short segment critical stenosis involving the proximal right posterior cerebral artery. The mid to distal posterior cerebral artery is patent. EXAM: CT Angiography Neck With Intravenous Contrast CLINICAL HISTORY: TIA TECHNIQUE: Routine carotid CT angiography protocol was performed with intravenous contrast. NASCET criteria using the distal ICAs for comparison were used for evaluation of stenoses. CTDI is 13.1 mGy and DLP is 528.9 mGy-cm. This CT exam was performed using one or more of the following dose reduction techniques: automated exposure control, adjustment of the mA and/or kV according to patient size, and/or use of iterative reconstruction technique. MIP reconstructed images were created and reviewed. COMPARISON: None. FINDINGS: VASCULATURE: Right common carotid artery: Unremarkable. No occlusion or significant stenosis. No dissection. Right internal carotid artery: There is a critical stenosis with a string sign noted involving the distal right internal carotid artery adjacent to the skull base, measuring only 1 mm with family noncalcified atheromatous plaque. There is moderately severe narrowing involving the proximal right internal carotid artery adjacent to the carotid bifurcation with the artery measuring only 1.5 mm in diameter. There is some ulceration of atheromatous changes posterior medially (series 501; image 90). No dissection. Right external carotid artery: Unremarkable. No occlusion. Right vertebral artery: Unremarkable. No occlusion or significant stenosis. No dissection. Left common carotid artery: Unremarkable. No occlusion or significant stenosis. No dissection. Left internal carotid artery: Partially calcified atheromatous changes involving the proximal left internal carotid artery with mild narrowing by NASCET criteria. Additional atheromatous changes noted in the mid internal carotid artery with only mild narrowing. No occlusion. Left external carotid artery: Unremarkable. No occlusion. Left vertebral artery: Unremarkable. No occlusion or significant stenosis. No dissection. Brachiocephalic and subclavian arteries: A normal branching pattern of the proximal great vessels is noted. No significant ostial stenosis. Aorta: The aortic arch is patent with atherosclerotic calcification. Postoperative changes consistent with prior CABG. No dissection. NECK: Bones/joints: Unremarkable. No acute fracture. Soft tissues: Unremarkable. Lung apices: Clear. CAROTID STENOSIS REFERENCE USING NASCET CRITERIA: % ICA stenosis = (1 - narrowest ICA diameter/diameter of distal cervical ICA) x 100. Mild - <50% stenosis. Moderate - 50-69% stenosis. Severe - 70-94% stenosis. Near occlusion - 95-99% stenosis. Occluded - 100% stenosis. IMPRESSION: 1. There is a critical stenosis with a string sign noted involving the distal right internal carotid artery adjacent to the skull base, measuring only 1 mm with family noncalcified atheromatous plaque. There is moderately severe narrowing involving the proximal right internal carotid artery adjacent to the carotid bifurcation with the artery measuring only 1.5 mm in diameter. There is some ulceration of atheromatous changes posterior medially (series 501; image 90). The right common carotid arteries patent. 2. Partially calcified atheromatous changes involving the proximal left internal carotid artery with mild narrowing by NASCET criteria. Additional atheromatous changes noted in the mid internal carotid artery with only mild narrowing. No occlusion. The common carotid artery is patent. 3. The vertebral arteries are patent without critical stenosis or occlusion.
--- NOTE | 2024-06-10 00:50 | CT ---
EXAM: CT Angiography Chest Without and With Intravenous Contrast CLINICAL HISTORY: sharp midline back pain, hypertensive TECHNIQUE: Axial computed tomographic angiography images of the chest without and with intravenous contrast using aortic dissection protocol. CTDI is 102. 9 mGy and DLP is 1733.4 mGy-cm. This CT exam was performed using one or more of the following dose reduction techniques: automated exposure control, adjustment of the mA and/or kV according to patient size, and/or use of iterative reconstruction technique. MIP reconstructed images were created and reviewed. CONTRAST: 125 mL Isovue-370 COMPARISON: No relevant prior studies available. FINDINGS: Artifacts: Scatter artifact likely related to patient's arm position. Limitations: There is respiratory artifact, which mildly degrades image quality on multiple image slices. Aorta: The ascending aorta is normal in caliber, with the mid ascending aorta measuring 3 x 2.9 cm. The aortic arch and descending aorta are normal in caliber. Prominent atherosclerotic calcification noted on the precontrast imaging without intimal wall abnormality. No dissection. Postsurgical changes along the anterior aspect of the ascending aorta consistent with prior CABG. Great vessels of aortic arch: There is a normal branching pattern of the proximal great vessels. Atherosclerotic calcification with mild atheromatous changes. No dissection or significant stenosis. Lungs: Curvilinear changes at the lung bases and inferior lingular segments. No definite focal airspace consolidation. No mass. Pleural space: Unremarkable. No significant effusion. No pneumothorax. Heart: Cardiomegaly with left subclavian dual lead pacer noted. Prominent coronary artery calcification with evidence of prior CABG using venous grafts and a COBB graft. No pericardial effusion. Bones/joints: No acute fracture. No dislocation. Soft tissues: Unremarkable. Lymph nodes: Unremarkable. No enlarged lymph nodes. IMPRESSION: 1. The ascending aorta is normal in caliber, with the mid ascending aorta measuring 3 x 2.9 cm. The aortic arch and descending aorta are normal in caliber. Prominent atherosclerotic calcification noted on the precontrast imaging without intimal wall abnormality. No dissection. Postsurgical changes along the anterior aspect of the ascending aorta consistent with prior CABG. 2. Curvilinear changes at the lung bases and inferior lingular segments. No definite focal airspace consolidation. No pleural effusion or pneumothorax. EXAM: CT Angiography Abdomen and Pelvis Without and With Intravenous Contrast CLINICAL HISTORY: sharp midline back pain, hypertensive TECHNIQUE: Axial computed tomographic angiography images of the abdomen and pelvis without and with intravenous contrast. CTDI is 102.9 mGy and DLP is 1733. 4 mGy-cm. This CT exam was performed using one or more of the following dose reduction techniques: automated exposure control, adjustment of the mA and/or kV according to patient size, and/or use of iterative reconstruction technique. MIP reconstructed images were created and reviewed. CONTRAST: 125 mL Isovue-370 COMPARISON: CT abdomen and pelvis without contrast dated 02/05/2024 FINDINGS: VASCULATURE: Aorta: The abdominal aorta is normal in caliber and is heavily calcified. No dissection. No definite intimal wall abnormality noted on precontrast imaging. No acute periaortic abnormality. Celiac trunk and mesenteric arteries: Mild narrowing of the proximal celiac artery. Moderate narrowing of the proximal celiac artery. Atheromatous changes noted in the mid segment with mild narrowing. The TAMI is patent proximally. Renal arteries: At least moderate ostial narrowing of the right renal artery. The left renal artery is patent. Iliac arteries: No acute findings. No occlusion or significant stenosis. Other arteries: The common femoral arteries are patent bilaterally without critical stenosis or occlusion. Atheromatous changes noted. The proximal profunda and superficial femoral arteries are patent with mild long segment narrowing. Moderate narrowing of the left SFA at the adductor canal. Lung bases: For findings regarding the lung bases, please see the CT report of the chest performed concurrently. ABDOMEN: Liver: Unremarkable. No mass. Gallbladder and bile ducts: Unremarkable. No calcified stones. No ductal dilation. Pancreas: Unremarkable. No ductal dilation. No mass. Spleen: Heterogeneous attenuation of the spleen is presumed related to arterial phase imaging. Adrenals: Unremarkable. No mass. Kidneys and ureters: Bilateral renal vascular calcifications. Probable subcentimeter punctate nephrolithiasis noted in the left kidney. No hydronephrosis. No pyelonephritis. Stomach and bowel: Stomach is decompressed without significant abnormality suspected. No bowel obstruction. No definite asymmetric bowel mucosal abnormality. Moderate stool burden. PELVIS: Appendix: No findings to suggest acute appendicitis. Bladder: The bladder is mild to moderately distended with layering contrast posteriorly. No stones. Reproductive: Status post hysterectomy. ABDOMEN and PELVIS: Intraperitoneal space: Unremarkable. No significant fluid collection. No free air. Bones/joints: Degenerative changes of the lumbar spine without acute osseous abnormality. No dislocation. Soft tissues: Unremarkable. Lymph nodes: Unremarkable. No enlarged lymph nodes. IMPRESSION: 1. The abdominal aorta is normal in caliber and is heavily calcified. No dissection. No definite intimal wall abnormality noted on precontrast imaging. No acute periaortic abnormality. 2. Moderate disease involving the visceral arteries. No critical stenosis or occlusion however. 3. No critical stenosis or occlusion involving the iliac arteries. Atherosclerotic changes involving the common femoral and superficial femoral arteries without critical stenosis or occlusion. Moderate narrowing of the left superficial femoral artery at the adductor canal.
[2024-06-10] MEDS ORDERED: ACETAMINOPHEN TAB 325 MG TAB PO PRN (03:34)
[2024-06-10] MEDS: LABETALOL 5 MG/ML VIAL MDV IVP STA (05:14)
[2024-06-10] MEDS: LOSARTAN 50 MG TAB PO SCH (09:42)
[2024-06-10] MEDS: atenoloL 50 MG TAB PO SCH (09:42)
[2024-06-10] MEDS: CLOPIDOGREL 75 MG TAB PO SCH (09:42)
[2024-06-10] MEDS: ATORVASTATIN 40 MG TAB PO SCH (09:42)
[2024-06-10] MEDS: ISOSORBIDE MONONITRATE ER 30 MG TAB.ER.24H PO SCH (09:42)
[2024-06-10] MEDS: ENOXAPARIN 40 MG/0.4 ML SYRINGE SQ SCH (13:05)
--- NOTE | 2024-06-10 13:20 | US ---
EXAMINATION TYPE: US carotid duplex BILAT DATE OF EXAM: 06/10/2024 COMPARISON: CTA CLINICAL INDICATION: Female, 84 years old with history of TIA; TIA Additional History: .... TECHNIQUE: Grayscale, color Doppler and spectral Doppler evaluation of the bilateral carotid systems and vertebral arteries. Indirect Doppler criteria was utilized. FINDINGS: EXAM MEASUREMENTS: RIGHT: Peak Systolic Velocity (PSV) cm/sec ----- Right CCA: 62.1 ----- Right ICA: 131 ----- Right ECA: 161 ICA/CCA ratio: 2.1 RIGHT: End Diastole cm/sec ----- Right CCA: 9.2 ----- Right ICA: 29.6 ----- Right ECA: 0.0 LEFT: Peak Systolic Velocity (PSV) cm/sec ----- Left CCA: 63.7 ----- Left ICA: 91.3 ----- Left ECA: 180 ICA/CCA ratio: 1.4 LEFT: End Diastole cm/sec ----- Left CCA: 6.2 ----- Left ICA: 24.1 ----- Left ECA: 0.0 VERTEBRALS (direction of flow): Right Vertebral: Antegrade Left Vertebral: Antegrade Rhythm: Normal [employer] NOTES: Difficult scan- carotid arteries deep in the neck, heterogeneous plaque bilatera lly with slightly elevated velocities Color Doppler imaging shows patency with blood flow throughout the carotid artery. Spectral waveforms are within normal limits. IMPRESSION: Right: 50-69% stenosis of the carotid bifurcation. 50 to 69% stenosis=ICA PSV of 125 to 230 cm/s: ration 2.0 - 4.0: ICA EDV 40-100 cm/s. Left: Less than 50% stenosis of the carotid bifurcation. Normal (no stenosis)=ICA PSV < 125 cm/s: rat io < 2.0: ICA EDV<40 cm/s. Criteria for Assigning % of Stenosis / Diameter reduction (Estimation based on the indirect measurements of the internal carotid artery velocities (ICA PSV). 1. Normal (no stenosis)=ICA PSV < 125 cm/s: ratio < 2.0: ICA EDV<40 cm/s. 2. Less than 50% stenosis=ICA PSV < 125 cm/s: ratio < 2.0: ICA EDV<40 cm/s. 3. 50 to 69% stenosis=ICA PSV of 125 to 230 cm/s: ration 2.0 ? 4.0: ICA EDV 40-100 cm/s. 4. Greater than 70% stenosis to near occlusion= ICA PSV > 230 cm/s: ratio > 4.0: ICA EDV > 100 cm/s. 5. Near occlusion= ICA PSV velocities may be low or undetectable: variable ratio and ICA EDV. 6. Total occlusion=unable to detect flow. [facility], , 06/10/2024 1:17 PM
--- NOTE | 2024-06-10 16:08 | P.GSCN ---
History of Present Illness Consult date: 06/10/24 Reason for Consult: Carotid stenosis Requesting physician: Gray Flores History of present illness: This is a pleasant 84-year-old female with a past medical history of atrial fibrillation not currently on anticoagulation, CVA/TIA, hypertension, coronary artery disease status post pacemaker and CT in 2012. Patient presented to the emergency department because of complaints of dizziness and feeling like the room was spinning yesterday at 10 AM and then again at 10 PM. She states she had no other focal deficits such as visual changes, difficulty with speech, facial drooping or extremity weakness. States she has history of TIA or stroke but cannot state what it was secondary to. States that she has had some known carotid stenosis on the left side and follows with her PCP for that. She currently denies any shortness of breath, chest pain, abdominal pain, nausea or vomiting. States that when she puts her head back she does feel little lightheaded. She had a CT of the brain with no acute changes. She had a CTA of the head and neck that shows severe focal narrowing on the right ICA. Vascular surgery was consulted for carotid stenosis. Review of Systems A 14 point review systems was completed all pertinent positives and negatives as stated in the HPI. Past Medical History Past Medical History: Atrial Fibrillation, CVA/TIA, Hypertension, Myocardial Infarction (CT) Additional Past Medical History / Comment(s): CVA left side weakness 2005, open heart in 2012, pacemaker in 2012 Last Myocardial Infarction Date:: 2012 History of Any Multi-Drug Resistant Organisms: None Reported Past Surgical History: Coronary Bypass/CABG, Heart Catheterization, Pacemaker Additional Past Surgical History / Comment(s): CABG 2012, Past Anesthesia/Blood Transfusion Reactions: No Reported Reaction Type of Cardiac Device: Permanent Pacemaker Device Placement Date:: 2012 Smoking Status: Never smoker Medications and Allergies Home Medications Medication Instructions Recorded Confirmed Type Isosorbide Mononitrate ER [Imdur] 30 mg PO BID 07/15/23 06/10/24 History Losartan Potassium 50 mg PO BID 07/15/23 06/10/24 History atenoloL [Tenormin] 25 mg PO HS 06/10/24 06/10/24 History atenoloL [Tenormin] 50 mg PO DAILY 06/10/24 06/10/24 History Allergies Allergy/AdvReac Type Severity Reaction Status Date / Time No Known Allergies Allergy Verified 06/10/24 07:48 Surgical - Exam Vital Signs Temp Pulse Resp BP Pulse Ox 98.0 F 60 19 221/91 99 06/09/24 21:51 06/09/24 21:51 06/09/24 21:51 06/09/24 21:51 06/09/24 21:51 General appearance: The patient is alert, oriented, appears in no acute distress. HET: Head is normocephalic and atraumatic. Pupils are equal and reactive. Neck: Supple. Right carotid bruit. Heart: Regular. Lungs: Equal expansion, normal respiratory effort. Abdomen: Soft, nontender, nondistended. Extremities: Normal skin color and turgor. Neurological: No focal deficits. Strength and sensation are grossly intact. Results - Labs 06/09/24 22:37 06/09/24 22:37 Abnormal Lab Results - Last 24 Hours (Table) 06/09/24 06/09/24 Range/Units 22:37 22:37 MCHC 30.0 L (31.0-37.0) g/dL Chloride 110 H (98-107) mmol/L BUN 20 H (7-17) mg/dL Glucose 101 H (74-99) mg/dL Diabetes panel 06/09/24 Range/Units 22:37 Sodium 139 (137-145) mmol/L Potassium 4.0 (3.5-5.1) mmol/L Chloride 110 H (98-107) mmol/L Carbon Dioxide 24 (22-30) mmol/L BUN 20 H (7-17) mg/dL Creatinine 0.64 (0.52-1.04) mg/dL Glucose 101 H (74-99) mg/dL Calcium 9.7 (8.4-10.2) mg/dL AST 30 (14-36) U/L ALT 29 (4-34) U/L Alkaline Phosphatase 95 (38-126) U/L Total Protein 7.5 (6.3-8.2) g/dL Albumin 4.3 (3.5-5.0) g/dL Calcium panel 06/09/24 Range/Units 22:37 Calcium 9.7 (8.4-10.2) mg/dL Albumin 4.3 (3.5-5.0) g/dL Pituitary panel 06/09/24 Range/Units 22:37 Sodium 139 (137-145) mmol/L Potassium 4.0 (3.5-5.1) mmol/L Chloride 110 H (98-107) mmol/L Carbon Dioxide 24 (22-30) mmol/L BUN 20 H (7-17) mg/dL Creatinine 0.64 (0.52-1.04) mg/dL Glucose 101 H (74-99) mg/dL Calcium 9.7 (8.4-10.2) mg/dL Adrenal panel 06/09/24 Range/Units 22:37 Sodium 139 (137-145) mmol/L Potassium 4.0 (3.5-5.1) mmol/L Chloride 110 H (98-107) mmol/L Carbon Dioxide 24 (22-30) mmol/L BUN 20 H (7-17) mg/dL Creatinine 0.64 (0.52-1.04) mg/dL Glucose 101 H (74-99) mg/dL Calcium 9.7 (8.4-10.2) mg/dL Total Bilirubin 0.6 (0.2-1.3) mg/dL AST 30 (14-36) U/L ALT 29 (4-34) U/L Alkaline Phosphatase 95 (38-126) U/L Total Protein 7.5 (6.3-8.2) g/dL Albumin 4.3 (3.5-5.0) g/dL - Imaging Comments: Carotid ultrasound reports right ICA 131, ICA/CCA ratio 2.1. Left ICA 91.3, ICA/CCA ratio 1.4. Right 50 to 69% stenosis of the carotid bifurcation and left less than 50% stenosis of the carotid bifurcation. CT angiogram head and neck report reads critical stenosis with a string sign noted involving the distal right internal carotid artery adjacent to the skull base, measuring only 1 mm with noncalcified atheromatous plaque. There is moderately severe narrowing involving the proximal right internal carotid artery adjacent to the carotid bifurcation with the artery measuring only 1.5 mm in diameter. There is some ulceration of atheromatous changes posterior medially. The right common carotid arteries patent. Partially calcified atheromatous changes involving the proximal left internal carotid artery with mild narrowing. Additional atheromatous changes noted in the mid internal carotid artery with only mild narrowing. No occlusion the common carotid artery is patent. Vertebral arteries are patent without critical stenosis or occlusion Brain CT no acute intracranial process identified. Underlying incidental presumed chronic age-related findings. Assessment and Plan Assessment: 1. Dizziness 2. Discordant findings of CTA and carotid duplex, with CTA reporting critical stenosis of the right ICA and approximately 50% stenosis per carotid duplex using updated recommendations 3. Atrial fibrillation not on anticoagulation Plan: 1. Carotid duplex ordered and reviewed 2. CT angiogram independently reviewed by Dr. Thompson and was not completely convinced of severe ICA stenosis 3. Continue with workup and recommendations from neurology 4. No plans for any vascular surgical intervention at this time. Recommend patient follow-up as an outpatient with vascular surgery, can consider repeating CTA head and neck, carotid Doppler and/or catheter directed angiogram Thank you for this consultation, we will continue to follow. The impression and plan of care has been dictated as directed. I performed a history and examination of this patient, discussed the same with the dictator. I agree with the dictator's note ,documented as a scribe. Any additional findings or plans will be noted.
--- NOTE | 2024-06-10 16:54 | P.CNNES ---
History of Present Illness Consult date: 06/10/24 Requesting physician: Crista Cash Reason for Consult: tia History of Present Illness: This is an 84-year-old woman with history of stroke 2005 with residual left- sided weakness atrial fibrillation and patient refuses to be on anticoagulation and is on holistic blood thinner "nanokinase", hypertension who presented em ergency department because of dizziness. She stated she had 2 episode of dizziness yesterday and she felt she was dizzy while sitting down and she felt the room spinning. Denies any nausea, vomiting, any focal weakness, any speech difficulty, visual disturbance, ringing of the ears or hearing loss. Blood pressure is elevated and was as high as 221/91. Patient states that she is on Plavix. Patient refused to be on anticoagulation for her Atrial fibrillation and wants to continue holistic medication Some of the workup during this hospital visit consisted of: I reviewed the labs CT of the head is reported as no acute intracranial process. I personally reviewed the CT and I agree there is no acute or subacute stroke. CT angiography of the head and neck is reported as critical stenosis with a string sign noted involving the distal right internal carotid artery adjacent to the skull base. Measuring only 1 mm noncalcified arthritis plaque. There is moderately severe narrowing involving the proximal right eye CEA adjacent to the carotid bifurcation with artery measuring only 1.5 mm in diameter. There are some ulceration of the arthritis changes posteriorly immediately. The right common carotid artery patent. Partially calcified arthritis changes involving the proximal left internal carotid artery with mild narrowing by NASCET criteria. Additional atheromatous changes noted in the mid internal carotid artery with only mild narrowing. No occlusion. The common carotid artery is patent. The vertebral artery are patent without critical stenosis or occlusion. Review of Systems Positive and negative as per HPI. Past Medical History Past Medical History: Atrial Fibrillation, CVA/TIA, Hypertension, Myocardial Infarction ([place]) Additional Past Medical History / Comment(s): CVA left side weakness 2005, open heart in 2012, pacemaker in 2012 Last Myocardial Infarction Date:: 2012 History of Any Multi-Drug Resistant Organisms: None Reported Past Surgical History: Coronary Bypass/CABG, Heart Catheterization, Pacemaker Additional Past Surgical History / Comment(s): CABG 2012, Past Anesthesia/Blood Transfusion Reactions: No Reported Reaction Type of Cardiac Device: Permanent Pacemaker Device Placement Date:: 2012 Smoking Status: Never smoker Medications and Allergies Home Medications Medication Instructions Recorded Confirmed Type Isosorbide Mononitrate ER [Imdur] 30 mg PO BID 07/15/23 06/10/24 History Losartan Potassium 50 mg PO BID 07/15/23 06/10/24 History atenoloL [Tenormin] 25 mg PO HS 06/10/24 06/10/24 History atenoloL [Tenormin] 50 mg PO DAILY 06/10/24 06/10/24 History Allergies Allergy/AdvReac Type Severity Reaction Status Date / Time No Known Allergies Allergy Verified 06/10/24 07:48 Physical Examination - Vital Signs Vital Signs: Vital Signs Temp Pulse Pulse Resp BP BP BP 06/10/24 15:20 190/70 06/10/24 12:02 130/80 138/70 06/10/24 09:24 98.5 F 59 L 17 216/86 06/10/24 08:33 97.9 F 61 16 161/64 06/10/24 06:16 98.4 F 60 18 172/76 06/10/24 05:30 64 18 177/75 06/10/24 05:13 68 18 189/86 06/10/24 04:56 63 18 193/84 06/10/24 03:17 62 18 173/87 06/10/24 01:32 79 18 175/86 06/10/24 00:53 60 18 178/76 06/10/24 00:34 98.4 F 60 19 180/80 06/10/24 00:04 197/83 06/09/24 23:53 206/91 06/09/24 23:10 67 20 217/96 06/09/24 21:51 98.0 F 60 19 221/91 Pulse Ox 06/10/24 15:20 06/10/24 12:02 06/10/24 09:24 96 06/10/24 08:33 94 L 06/10/24 06:16 95 06/10/24 05:30 95 06/10/24 05:13 97 06/10/24 04:56 96 06/10/24 03:17 96 06/10/24 01:32 92 L 06/10/24 00:53 96 06/10/24 00:34 95 06/10/24 00:04 06/09/24 23:53 06/09/24 23:10 97 06/09/24 21:51 99 Intake and Output 06/10/24 06/10/24 06/10/24 06:59 14:59 22:59 Intake Total 118 Balance 118 Intake: Oral 118 Other: Voiding Method Toilet Diaper # Voids 1 Weight 67.585 kg GENERAL: Sitting in a recliner chair and is not in acute distress. NEUROLOGICAL: Higher mental function: The patient is awake, alert, oriented to self, place and time. Patient is following commands. No aphasia and no neglect. Cranial nerves: The pupils are round, equal and reactive to light and accommodation. Visual kulkarni are full to confrontation throughout. Extraocular movement is intact no nystagmus is noted. Facial sensation is normal to touch throughout. The facial strength is normal throughout. Hearing is normal bilaterally to hand rub. Tongue is midline and moved [id number] without any difficulty. No dysarthria is noted. Shoulder shrug is normal bilaterally. Motor: The strength is left upper extremity is 4+. Left lower proximal is 4- and distal is 3-4. Right side is 5/5. Normal tone and bulk. Cerebellum: Normal finger to nose bilaterally. Sensation: Sensation is normal to touch throughout. Reflexes (right/left): 2+ throughout. Plantars are mute bilaterally. Results - Laboratory Findings CBC and BMP: 06/09/24 22:37 06/09/24 22:37 Abnormal Lab Findings: Abnormal Labs 06/09/24 06/09/24 22:37 22:37 MCHC 30.0 L Chloride 110 H BUN 20 H Glucose 101 H Assessment and Plan Assessment: This is an 84 y/o woman with history of stroke 2005 with residual left-sided weakness atrial fibrillation and patient refuses to be on anticoagulation and is on holistic blood thinner "nanokinase", hypertension who presents because of dizziness. Her blood pressure was in 220's/90's. Acute vertigo and I feel it is more her uncontrolled hypertension. Her blood pressure on presentation was 220s over 90s. Cannot exclude TIA. Vertigo has resolved patient does not have any focal deficit Severe right ICA stenosis on the CT angiography Hypertensive urgency History of stroke in 2005 with residual left hemiparesis Underlying history of atrial fibrillation and the patient is on holistic medication "nanokinase" and refuses anticoagulation Underlying history of hypertension Pacemaker Plan: Initially ordered MRI of the brain but was later notified by the nurse that unable to obtain MRI because of the pacemaker. Will obtain repeat CT of the head tomorrow I consulted vascular surgery team for the right ICA stenosis that is severe. Patient was resumed on her home dose of Plavix 75 mg daily. Started on aspirin 325 daily by the ED physician and I change it to 81 mg since there is no difference between 325 and 81. She is on Lipitor 40 mg daily Continue neurochecks Cardiac monitoring Ordered 2D echo PT OT and FINANCIAL SERVICES INTERN are consulted For the rest of the medical management to primary and other specialist For DVT prophylaxis the patient is on Lovenox The plan discussed with the patient and her nurse Thank for the consultation. Time with Patient: Greater than 30
--- NOTE | 2024-06-10 17:00 | P.HPIM ---
History of Present Illness H&P Date: 06/10/24 Chief Complaint: Dizzy This is a pleasant 84-year-old patient follows with Dr. Lerma. Chronic stable medical condition include atrial fibrillation, hypertension, coronary bypass in 2012. Patient had a stroke in 2005 leaving weakness in the left arm and left leg. Patient does hold onto things to get about. Had a pacemaker placed in 2012. Yesterday around 10 AM patient started feeling dizzy. Symptoms persisted the whole day. No worsening or of weakness on the left side. No change in speech or vision slam head discomfort. ER significant stenosis of the right internal carotid artery noted. This morning patient's findings herself pretty much back to baseline. Patient presentation is blood pressure over 200 systolic. Had received labetalol. Review of systems: GEN.: Awake tired EYES: None HEENT: None NECK: None RESPIRATORY: None CARDIOVASCULAR: None GASTROINTESTINAL: None GENITOURINARY: None MUSCULOSKELETAL: Some contracture of the left arm. LYMPHATICS: None HEMATOLOGICAL: None PSYCHIATRY: None NEUROLOGICAL: Weakness of the left side Social history: Lives with her . No smoking no alcohol Physical examination: VITAL SIGNS: 98.5, 59, 17, 216 / 86, 95% room air before morning medications GENERAL: BMI 29.1, reclining awake comfortable. EYES: Pupils equal. Conjunctiva lynn l. HEENT: External appearance of nose and ears normal, oral cavity grossly normal. NECK: JVD not raised; masses not palpable. HEART: First and second heart sounds are normal; no edema. LUNGS: Respiratory rate normal; clear to auscultation. ABDOMEN: Soft, nontender, liver spleen not palpable, no masses palpable. PSYCH: Alert and oriented x3; mood and affect lynn l. MUSCULOSKELETAL:No Clubbing/cyanosis;muscles-grossly intact. OA NEUROLOGICAL: Cranial nerves grossly intact; no facial asymmetry, power in the left arm left leg 3/5. With some contractures left upper extremity. LYMPHATICS: No lymph nodes palpable in the axilla and neck INVESTIGATIONS, reviewed in the clinical context: June 09, 2024: White count 10.3 hemoglobin 13.4 platelets 194 sodium 139 potassium 4 creatinine 0.64 EKG tracing personally reviewed by me-normal sinus rhythm. PVC. CT without contrast, brain.: Nonspecific finding CT angio head with IV contrast: Extensive atherosclerotic calcification of the distal right vertebral artery with long segment irregular narrowing. There is a critical stenosis or short segment occlusion of the distal right ventral vertebral artery. Critical stenosis with a string sign involving the distal right internal carotid artery adjacent to the skull base. Moderate to severe narrowing involving the proximal right internal carotid artery adjacent to the carotid bifurcation some ulceration of the atheromatous tremendous changes posteriorly medially. Partially calcified atheromatous changes involving the proximal left internal carotid artery with mild narrowing of NASCET criteria Assessment plan: -Probable acute TIA manifesting as episodes of dizziness. The patient had prior stroke. Neurochecks. Aspirin and Plavix. Neurology consulted. Lipitor. MRI brain. -Clinical stenosis or short segment occlusion of the distal right vertebral artery. Critical stenosis with a string sign involving the distal right internal Alejandra artery adjacent to the skull base. Moderate to severe narrowing involving the proximal right internal carotid artery adjacent to the carotid bifurcation, with ulceration of the atheromatous. Vascular consulted -Prior left hemiparesis from prior stroke in 2005 -CAD with coronary bypass in 2012 Aspirin. 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 Full code with no intubation no mechanical ventilation [only CPR and cardioversion] Neurology consulted. MRI brain ordered. Because of right-sided carotid stenosis. Vascular surgery consulted. Advance care planning [June 10, 2024] Patient takes her own decisions. CODE STATUS discussed. Patient did express she wants to have chest compressions and shocks. But she does not want to be intubated does not she want any mechanical ventilation. Time spent for this about 20 minutes Past Medical History Past Medical History: Atrial Fibrillation, CVA/TIA, Hypertension, Myocardial Infarction ([place]) Additional Past Medical History / Comment(s): CVA left side weakness 2005, open heart in 2012, pacemaker in 2012 Last Myocardial Infarction Date:: 2012 History of Any Multi-Drug Resistant Organisms: None Reported Past Surgical History: Coronary Bypass/CABG, Heart Catheterization, Pacemaker Additional Past Surgical History / Comment(s): CABG 2013, Past Anesthesia/Blood Transfusion Reactions: No Reported Reaction Type of Cardiac Device: Permanent Pacemaker Device Placement Date:: 2012 Smoking Status: Never smoker Medications and Allergies Home Medications Medication Instructions Recorded Confirmed Type Isosorbide Mononitrate ER [Imdur] 30 mg PO BID 07/15/23 06/10/24 History Losartan Potassium 50 mg PO BID 07/15/23 06/10/24 History atenoloL [Tenormin] 25 mg PO HS 06/10/24 06/10/24 History atenoloL [Tenormin] 50 mg PO DAILY 06/10/24 06/10/24 History Allergies Allergy/AdvReac Type Severity Reaction Status Date / Time No Known Allergies Allergy Verified 06/10/24 07:48 Physical Exam Vitals: Vital Signs Temp Pulse Pulse Resp BP BP Pulse Ox 06/10/24 09:24 98.5 F 59 L 17 216/86 96 06/10/24 08:33 97.9 F 61 16 161/64 94 L 06/10/24 06:16 98.4 F 60 18 172/76 95 06/10/24 05:30 64 18 177/75 95 06/10/24 05:13 68 18 189/86 97 06/10/24 04:56 63 18 193/84 96 06/10/24 03:17 62 18 173/87 96 06/10/24 01:32 79 18 175/86 92 L 06/10/24 00:53 60 18 178/76 96 06/10/24 00:34 98.4 F 60 19 180/80 95 06/10/24 00:04 197/83 06/09/24 23:53 206/91 06/09/24 23:10 67 20 217/96 97 06/09/24 21:51 98.0 F 60 19 221/91 99 Intake and Output 06/09/24 06/10/24 06/10/24 22:59 06:59 14:59 Other: Voiding Method Toilet Diaper Weight 67.585 kg 67.585 kg Results CBC & Chem 7: 06/09/24 22:37 06/09/24 22:37 Labs: Abnormal Lab Results - Last 24 Hours (Table) 06/09/24 06/09/24 Range/Units 22:37 22:37 MCHC 30.0 L (31.0-37.0) g/dL Chloride 110 H (98-107) mmol/L BUN 20 H (7-17) mg/dL Glucose 101 H (74-99) mg/dL Thrombosis Risk Factor Assmnt - Choose All That Apply Any of the Below Risk Factors Present?: Yes Other Risk Factors: Yes Each Risk Factor Represents 3 Points: Age 75 years or older Thrombosis Risk Factor Assessment Total Risk Factor Score: 3 Thrombosis Risk Factor Assessment Level: Moderate Risk
[2024-06-10] MEDS: LABETALOL 100 MG TAB PO SCH (17:19)
[2024-06-10 19:32] VITALS: RESP 16
[2024-06-10] MEDS ORDERED: LOSARTAN 25 MG TAB PO SCH (21:00)
[2024-06-10] MEDS ORDERED: atenoloL 25 MG TAB PO SCH (21:00)
[2024-06-10] MEDS: LABETALOL 200 MG TAB PO SCH (21:09)
[2024-06-11 01:57] VITALS: PULSE 69; TEMP 97.9
[2024-06-11] MEDS ORDERED: ASPIRIN 325 MG TAB PO SCH (09:00)
--- NOTE | 2024-06-11 10:20 | CT ---
EXAMINATION TYPE: CT brain cspine wo con CT DLP: 1478.9 mGycm, Automated exposure control for dose reduction was used. DATE OF EXAM: 06/11/2024 10:11 AM COMPARISON: None.. CLINICAL INDICATION:Female, 84 years old with history of dizziness; dizziness TECHNIQUE: Brain: Multiple axial CT images of the brain were obtained without IV contrast. Cspine: Axial CT images from the skull base to the inferior aspect of T2 we obtained without intraven ous contrast. Coronal and sagittal reformatted images were also reviewed. FINDINGS: Brain: Extra-axial spaces: No abnormal extra-axial fluid collections. Ventricular system: Within normal limits Cerebral parenchyma: Mild diffuse cerebral volume loss. No acute intraparenchymal hemorrhage or mass effect. The menjivar-white junction is well differentiated. Scattered hypoattenuating areas are seen wit hin the periventricular and subcortical white matter. Cerebellum: Unremarkable. Mass effect: No evidence of midline shift. Intracranial vasculature: Atherosclerotic calcifications of the intracranial vessels. Soft tissues: Normal. Calvarium/osseous structures: No depressed skull fracture. Benign hyperostosis frontalis noted. Paranasal sinuses and mastoid air cells: The mastoid air cells are clear. Mild mucosal thickening of the left maxillary sinus. Visualized orbits: Bilateral aphakia Cervical spine: Fracture: No acute fractures. Osseous structures: Multilevel degenerative disc disease changes with endplate spurring and disc oste ophyte complex's. Remote injury to the left first rib with bridging to the second. Vertebral alignment: Within normal limits. Spinal canal/Neural Foramina: Broad-based disc bulge at C3-C4 with at least mild central canal stenos is. Broad-based disc bulge at C4-C5 with mild central canal stenosis. Posterior disc osteophyte compl exes at C5-C6 and C6-C7 with mild central canal stenosis. Facet joint uncovertebral joint arthropathy scattered throughout the cervical spine with varying degrees of neural foraminal stenosis. Fusion of the right C2-C3 facet joint. Most pronounced with moderate to severe neuroforaminal stenosis involvi ng the right neural foramen at C3-C4. Neck soft tissues: Prevertebral soft tissues are within normal limits. Other: The airway is patent. The lung apices are clear. Retropharyngeal course of the bilateral carot id bulbs with calcifications identified. Macrocalcification within the left thyroid lobe. IMPRESSION: 1. No acute intracranial process. 2. Nonspecific white matter changes, likely secondary to chronic small vessel ischemic disease. 3. No evidence of cervical spine fracture. 4. Moderate multilevel degenerative disc disease. [facility], , 06/11/2024 10:18 AM
[2024-06-11] MEDS: ASPIRIN 81 MG PO SCH (10:33)
[2024-06-11 11:44] VITALS: BP 137/76
--- NOTE | 2024-06-11 12:07 | CA ---
Transthoracic Echo Report Name: Catalina Escobar Age: 84 Gender: F : 1940 Exam Date: 06/11/2024 09:04 Exam Location: [facility] Ht (in): 60 Wt (lb): 149 Ordering Physician: Gray Flores MD Attending/Referring Phys: Glass Decorator Devorah Ham RDCS Procedure CPT: Indications: CVA Cardiac Hx: Pacemaker Technical Quality: Fair Contrast 1: Total Dose (mL): Contrast 2: Total Dose (mL): MEASUREMENTS (Male / Female) Normal Values 2D ECHO LV Diastolic Diameter PLAX 3.9 cm 4.2 - 5.9 / 3.9 - 5.3 cm LV Systolic Diameter PLAX 2.4 cm IVS Diastolic Thickness 1.1 cm 0.6 - 1.0 / 0.6 - 0.9 cm LVPW Diastolic Thickness 1.4 cm 0.6 - 1.0 / 0.6 - 0.9 cm LV Relative Wall Thickness 0.6 RV Internal Dim ED PLAX 2.1 cm LA Systolic Diameter LX 4.4 cm 3.0 - 4.0 / 2.7 - 3.8 cm LV Diastolic Volume MOD BP 61.7 cm??? 67 - 155 / 56 - 104 cm??? LV Systolic Volume MOD BP 20.7 cm??? 22 - 58 / 19 - 49 cm??? LV Ejection Fraction MOD BP 66.5 % >= 55 % LV Cardiac Index MOD BP 2029.9 cm???/min???m??? LV Diastolic Volume MOD 4C 64.9 cm??? LV Systolic Volume MOD 4C 20.6 cm??? LV Ejection Fraction MOD 4C 68.2 % LV Cardiac Index MOD 4C 2193.5 cm???/min???m??? LV Diastolic Length 4C 6.9 cm LV Systolic Length 4C 5.3 cm LV Diastolic Volume MOD 2C 58.6 cm??? LV Systolic Volume MOD 2C 18.9 cm??? LV Ejection Fraction MOD 2C 67.8 % LV Cardiac Index MOD 2C 1969.8 cm???/min???m??? LV Diastolic Length 2C 7.0 cm LV Systolic Length 2C 5.9 cm LA Volume 82.6 cm??? 18 - 58 / 22 - 52 cm??? LA Volume Index 48.2 cm???/m??? 16 - 28 cm???/m??? M-MODE Aortic Root Diameter MM 2.4 cm LA Systolic Diameter MM 4.5 cm LA Ao Ratio MM 1.8 AV Cusp Separation MM 1.2 cm DOPPLER AV Peak Velocity 223.5 cm/s AV Peak Gradient 20.0 mmHg AV Mean Velocity 172.8 cm/s AV Mean Gradient 12.8 mmHg AV Velocity Time Integral 55.2 cm AI Peak Velocity 313.9 cm/s AI Peak Gradient 39.4 mmHg AI Pressure Half Time 877.4 ms LVOT Peak Velocity 88.7 cm/s LVOT Peak Gradient 3.1 mmHg LVOT Velocity Time Integral 23.5 cm MV Peak Velocity 111.8 cm/s MV Peak Gradient 5.0 mmHg MV Mean Velocity 54.7 cm/s MV Mean Gradient 1.5 mmHg MV Velocity Time Integral 35.0 cm MV Area PHT 2.6 cm??? Mitral E Point Velocity 91.6 cm/s Mitral A Point Velocity 107.5 cm/s Mitral E to A Ratio 0.9 MV Deceleration Time 292.5 ms TR Peak Velocity 282.2 cm/s TR Peak Gradient 31.9 mmHg Right Ventricular Systolic Press 36.6 mmHg FINDINGS Left Ventricle Left ventricular ejection fraction is estimated at 60-65%. Mildly increased septal wall thickness. Moderately increased posterior wall thickness. No obvious regional wall motion abnormalities. Left ventricular cavity size normal. Right Ventricle Mild right ventricular dilatation. Mild pulmonary hypertension. Right Atrium Moderate right atrial dilatation. Catheter/pacemaker wire in the right atrial cavity. Left Atrium Moderately increased left atrial diameter. Severely increased left atrial volume. Mildly increased left atrial area. Mitral Valve Moderate thickening/calcification of the anterior mitral valve leaflet. Mitral annular calcification. Moderate mitral regurgitation. Aortic Valve Trileaflet aortic valve. Mild aortic stenosis with a peak gradient of 20mmHg and a mean gradient of 12mmHg. Mild aortic regurgitation. Tricuspid Valve Structurally normal tricuspid valve. Mild tricuspid regurgitation. No tricuspid stenosis. Pulmonic Valve Structurally normal pulmonic valve. Mild pulmonic regurgitation. Pericardium No pericardial or pleural effusion. Aorta Normal size aortic root and proximal ascending aorta. CONCLUSIONS Normal LV function Moderate mitral regurgitation Mild aortic stenosis Previewed by: Dr. Isidro Bassett MD (Electronically Signed) Final Date: 11 June 2024 12:06
[2024-06-11 13:54] LABS: Chol/HDL Ratio 3.44 Ratio; LDL Cholesterol,Calculated 133.8 mg/dL (0.0-131.0)
--- NOTE | 2024-06-11 14:05 | P.DS ---
Providers Date of admission: 06/10/24 03:35 Expected date of discharge: 06/11/24 Attending physician: Tiago Rinaldi Consults: 06/10/24 03:36 Consult Physician Routine Consulting Provider: Gray Flores Consult Reason/Comments: TIA Do you want consulting provider notified?: Yes, Notify in am 06/10/24 10:59 Consult Physician Routine Consulting Provider: Jailene Antonio Consult Reason/Comments: ica stenosis with TIA symptoms Do you want consulting provider notified?: Yes Primary care physician: [facility] Course: Chief Complaint: Dizzy This is a pleasant 84-year-old patient follows with Dr. Lerma. Chronic stable medical condition include atrial fibrillation, hypertension, coronary bypass in 2012. Patient had a stroke in 2005 leaving weakness in the left arm and left leg. Patient does hold onto things to get about. Had a pacemaker placed in 2012. Yesterday around 10 AM patient started feeling dizzy. Symptoms persisted the whole day. No worsening or of weakness on the left side. No change in speech or vision slam head discomfort. ER significant stenosis of the right internal carotid artery noted. This morning patient's findings herself pretty much back to baseline. Patient presentation is blood pressure over 200 systolic. Had received labetalol. June 11: Patient blood pressure medication changed to labetalol. 200 mg twice daily. As Silvio was discontinued.This morning blood pressure, above 170 systolic. By afternoon down to 142. Will add chlorthalidone [address] scan repeated today showing no change. MRI cannot be done because of pacemaker. Follow outpatient with vascular. Patient is neurodeficits are at her baseline. No new findings. Discussion and discharge planning more than 35 minutes Social history: Lives with her . No smoking no alcohol Physical examination: VITAL SIGNS: 97.9, 69, 16, 142/96, 96% room air GENERAL: Sitting up in chair, comfortable EYES: Pupils equal. Conjunctiva lynn l. HEENT: External appearance of nose and ears normal, oral cavity grossly normal. NECK: JVD not raised; masses not palpable. HEART: First and second heart sounds are normal; no edema. LUNGS: Respiratory rate normal; clear to auscultation. ABDOMEN: Soft, nontender, liver spleen not palpable, no masses palpable. PSYCH: Alert and oriented x3; mood and affect lynn l. MUSCULOSKELETAL:No Clubbing/cyanosis;muscles-grossly intact. OA NEUROLOGICAL: Cranial nerves grossly intact; no facial asymmetry, power in the left arm left leg 3/5. With some contractures left upper extremity. INVESTIGATIONS, reviewed in the clinical context: 2D echocardiogram: EF 60-65%. No wall motion abnormality. Pacemaker wire in the right atrial cavity. Mitral annular calcification with moderate mitral regurgitation. LDL 133 June 09, 2024: White count 10.3 hemoglobin 13.4 platelets 194 sodium 139 potassium 4 creatinine 0.64 EKG tracing personally reviewed by me-normal sinus rhythm. PVC. CT without contrast, brain.: Nonspecific finding CT angio head with IV contrast: Extensive atherosclerotic calcification of the distal right vertebral artery with long segment irregular narrowing. There is a critical stenosis or short segment occlusion of the distal right ventral vertebral artery. Critical stenosis with a string sign involving the distal right internal carotid artery adjacent to the skull base. Moderate to severe narrowing involving the proximal right internal carotid artery adjacent to the carotid bifurcation some ulceration of the atheromatous tremendous changes posteriorly medially. Partially calcified atheromatous changes involving the proximal left internal carotid artery with mild narrowing of NASCET criteria Assessment plan: -Probable acute TIA manifesting as episodes of dizziness. The patient had prior stroke. Neurochecks. Aspirin and Plavix. Neurology consulted. Lipitor. Repeat CT scan of the brain unremarkable. 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 Critical stenosis with a string sign involving the distal right internal Alejandra artery adjacent to the skull base. Moderate to severe narrowing involving the proximal right internal carotid artery adjacent to the carotid bifurcation, with ulceration of the atheromatous. Patient seen by vascular team. Follow-up outpatient with Dr. 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 Labetalol -Essential hypertension, uncontrolled Labetalol to her milligram twice daily. Chlorthalidone 25 mg a day. 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 Full code with no intubation no mechanical ventilation [only CPR and cardioversion] Advance care planning [June 10, 2024] Patient takes her own decisions. CODE STATUS discussed. Patient did express she wants to have chest compressions and shocks. But she does not want to be intubated does not she want any mechanical ventilation. Time spent for this about 20 minutes Disposition: Home Past Medical History Past Medical History: Atrial Fibrillation, CVA/TIA, Hypertension, Myocardial Infarction ([place]) Additional Past Medical History / Comment(s): CVA left side weakness 2005, open heart in 2012, pacemaker in 2012 Last Myocardial Infarction Date:: 2012 History of Any Multi-Drug Resistant Organisms: None Reported Past Surgical History: Coronary Bypass/CABG, Heart Catheterization, Pacemaker Additional Past Surgical History / Comment(s): CABG 2012, Past Anesthesia/Blood Transfusion Reactions: No Reported Reaction Type of Cardiac Device: Permanent Pacemaker Device Placement Date:: 2012 Smoking Status: Never smoker Plan - Discharge Summary Discharge Rx Participant: Yes New Discharge Prescriptions: New Chlorthalidone 25 mg PO DAILY #30 tablet Aspirin 81 mg PO DAILY tab Atorvastatin [Lipitor] 40 mg PO DAILY #30 tab Clopidogrel [Plavix] 75 mg PO DAILY #30 tab Labetalol [Trandate] 200 mg PO BID #60 tab Continue Losartan Potassium 50 mg PO BID Isosorbide Mononitrate ER [Imdur] 30 mg PO BID Discontinued atenoloL [Tenormin] 25 mg PO HS atenoloL [Tenormin] 50 mg PO DAILY Discharge Medication List Isosorbide Mononitrate ER [Imdur] 30 mg PO BID 07/15/23 [History] Losartan Potassium 50 mg PO BID 07/15/23 [History] Aspirin 81 mg PO DAILY tab 06/11/24 [Rx] Atorvastatin [Lipitor] 40 mg PO DAILY #30 tab 06/11/24 [Rx] Chlorthalidone 25 mg PO DAILY #30 tablet 06/11/24 [Rx] Clopidogrel [Plavix] 75 mg PO DAILY #30 tab 06/11/24 [Rx] Labetalol [Trandate] 200 mg PO BID #60 tab 06/11/24 [Rx] Follow up Appointment(s)/Referral(s): Robert Lerma DO [Primary Care Provider] - 1-2 days (office will call patient to set up appointment) Jailene Antonio DO [STAFF PHYSICIAN] - 06/23/24 9:00 am Marleny Ambriz MD [REFERRING] - 1 Week (office will call patient to schedule appointment) Patient Instructions/Handouts: Transient Ischemic Attack (DC) Discharge Disposition: HOME SELF-CARE
== END 2024-06-11 13:40 | disposition home or self-care (01) ==
LOC: EC 21:50 → 6NMEDSUR 06-10 03:35
PROVIDERS: ADMIT Hospitalist; ATTEND Hospitalist
DX: G45.9 Transient cerebral ischemic attack, unspecified (principal); I16.0 Hypertensive urgency; I25.10 Atherosclerotic heart disease of native coronary artery without angina pectoris; I10 Essential (primary) hypertension; I48.91 Unspecified atrial fibrillation; I69.354 Hemiplegia and hemiparesis following cerebral infarction affecting left non-dominant side; I25.2 Old myocardial infarction; R26.1 Paralytic gait; Z79.82 Long term (current) use of aspirin; Z79.02 Long term (current) use of antithrombotics/antiplatelets; Z79.899 Other long term (current) drug therapy; Z95.1 Presence of aortocoronary bypass graft; Z95.0 Presence of cardiac pacemaker
CPT/HCPCS: 96372 ×2; 96374; 96361; 99291; 36415 ×2; 93005; 93306; 97162; 97166; 80061; 80053; 83735; 84484 ×2; 85025; 85610; 81003; 93880; 72125; 70496; 70450 ×2; 70498; 71275; 74174; G0378 ×2; J1650 ×2; Q9967; J1920

== ENCOUNTER → 2024-07-30 | Outpatient (CLI) | payer MEDICARE ==
[2024-07-30 15:17] LABS: HCT 40.7 % (37.2-46.3); HGB 12.6 g/dL (12.0-15.0); MCH 29.8 pg (27.0-32.0); MCV 96.2 FL (80.0-97.0); Mean Platelet Volume 11.8 FL (9.5-12.2); NRBC Per 100 WBC 0 X 10*3/uL (0.00-0.01); Platelet Count 206 X 10*3/uL (140-440); RBC 4.23 X 10*6/uL (4.10-5.20); RDW 13.4 % (11.5-14.5); WBC 7.08 X 10*3/uL (4.50-10.00)
[2024-07-30 16:27] LABS: NT-Pro-B-Type Natriuretic Pept 1688 pg/mL (0-450)
[2024-07-30 16:35] LABS: C Reactive Protein, High Sens 0.357 mg/L (0.000-3.000); Chol/HDL Ratio 2.84 Ratio; LDL Cholesterol,Calculated 75.5 mg/dL (0.0-131.0)
[2024-07-30 16:36] LABS: ALT 23 U/L (8-44); AST 21 U/L (13-35); Albumin 4.2 g/dL (3.8-4.9); Albumin/Globulin Ratio 1.62 Ratio (1.60-3.17); Alkaline Phosphatase 72 U/L (41-126); BUN/Creat Ratio 25.25 Ratio (12.00-20.00); Blood Urea Nitrogen 20.2 mg/dL (9.0-27.0); Calcium 9.6 mg/dL (8.7-10.3); Carbon Dioxide 24.6 mmol/L (21.6-31.8); Chloride 106 mmol/L (96-109); Globulin 2.6 g/dL (1.6-3.3); Glucose 93 mg/dL (70-110); Potassium 4.1 mmol/L (3.5-5.5); Sodium 142 mmol/L (135-145); Total Bilirubin 0.5 mg/dL (0.3-1.2); Total Protein 6.8 g/dL (6.2-8.2)
== END | disposition home or self-care (01) ==
LOC: LABWHC1 11:32
PROVIDERS: ATTEND Student in an Organized Health Care Education/Training Program
DX: Z13.6 Encounter for screening for cardiovascular disorders (principal); I50.9 Heart failure, unspecified; D72.9 Disorder of white blood cells, unspecified; E11.9 Type 2 diabetes mellitus without complications; E78.5 Hyperlipidemia, unspecified; E03.9 Hypothyroidism, unspecified; R79.89 Other specified abnormal findings of blood chemistry
CPT/HCPCS: 36415; 80053; 80061; 83036; 83880; 84443; 85027; 86141

== ENCOUNTER 2024-10-31 09:52 | Inpatient (IN) | payer BC, MEDICARE ==
--- NOTE | 2024-10-31 11:39 | XR ---
Chest, 2 view. CLINICAL INDICATION: Female, 84 years old with history of dysrhythmia COMPARISON: 07/15/2023 TECHNIQUE: PA and lateral views the chest are obtained. FINDINGS: The lungs are clear and there is no consolidative or interstitial opacity. There is no pleural effusion or pneumothorax. 2-lead cardiac pacemaker and prior CABG surgery but the heart size is normal and the pulmonary vascul ature is not congested. The osseous structures are intact. IMPRESSION: No acute cardiopulmonary disease with no interval change.. [facility], Workstation: PK, 10/31/2024 11:36 AM
--- NOTE | 2024-10-31 12:15 | ED ---
Arrhythmia/Palpitations HPI - General Chief Complaint: Arrhythmia/Palpitations Stated Complaint: Weakness Time Seen by Provider: 10/31/24 10:00 Source: patient Mode of arrival: wheelchair Limitations: no limitations - History of Present Illness Initial Comments: 84-year-old female with past medical history of A-fib who presents to the emergency department with palpitations. States she does have a history of A-fib and can tell when she goes into it. She started having palpitations last night. Feels as if she is mildly short of breath. She denies any chest pain. States that she has been taking her medications as they are directed however it is found that the patient is only taking her Pradaxa once a day. She denies fevers, chills or cough. No nausea or vomiting. Does have a known blockage in her heart for which she was told by Dr. Rivero that she may need a stent by a different operations inspector. She denies abdominal pain. She did take a couple nitro last night which she states usually helps her palpitations. She denies numbnes s, tingling or weakness in her extremities. No other alleviating, precipitating or modifying factors - Related Data Home Medications Medication Instructions Recorded Confirmed Isosorbide Mononitrate ER [Imdur] 30 mg PO BID 07/15/23 10/31/24 Losartan Potassium 50 mg PO BID 07/15/23 10/31/24 Colon Support 2 tab PO DAILY 10/31/24 10/31/24 Dabigatran [Pradaxa] 75 mg PO BID 10/31/24 10/31/24 Garlique 1 tab PO DAILY 10/31/24 10/31/24 Magnesium Glycinate 200mg 400 mg PO BID 10/31/24 10/31/24 Metoprolol Succinate (ER) [Toprol 50 mg PO DAILY 10/31/24 10/31/24 Xl] Nitroglycerin Sl Tabs [Nitrostat] 0.4 mg SL Q5M PRN 10/31/24 10/31/24 Ferguson-3(Unknown Dose) 1 cap PO DAILY 10/31/24 10/31/24 Previous Rx's Medication Instructions Recorded Clopidogrel [Plavix] 75 mg PO DAILY #30 tab 06/11/24 Allergies Allergy/AdvReac Type Severity Reaction Status Date / Time No Known Allergies Allergy Verified 10/31/24 14:29 Review of Systems ROS Statement: Those systems with pertinent positive or pertinent negative responses have been documented in the HPI. ROS Other: All systems not noted in ROS Statement are negative. Past Medical History Past Medical History: Atrial Fibrillation, CVA/TIA, Hypertension, Myocardial Infarction ([place]) Additional Past Medical History / Comment(s): CVA left side weakness 2005, open heart in 2012, pacemaker in 2012 Last Myocardial Infarction Date:: 2012 History of Any Multi-Drug Resistant Organisms: None Reported Past Surgical History: Coronary Bypass/CABG, Pacemaker Additional Past Surgical History / Comment(s): CABG 2012, Past Anesthesia/Blood Transfusion Reactions: No Reported Reaction Type of Cardiac Device: Permanent Pacemaker Device Placement Date:: 2012 Past Psychological History: No Psychological Hx Reported Smoking Status: Never smoker General Exam Limitations: no limitations General appearance: alert, in no apparent distress Head exam: Present: atraumatic, normocephalic, normal inspection Eye exam: Present: normal appearance, PERRL, EOMI. Absent: scleral icterus, conjunctival injection, periorbital swelling ENT exam: Present: normal exam, mucous membranes moist Neck exam: Present: normal inspection. Absent: tenderness, meningismus, lymphadenopathy Respiratory exam: Present: normal lung sounds bilaterally. Absent: respiratory distress, wheezes, rales, rhonchi, stridor Cardiovascular Exam: Present: tachycardia, irregular rhythm, normal heart sounds. Absent: systolic murmur, diastolic murmur, rubs, gallop, clicks GI/Abdominal exam: Present: soft, normal bowel sounds. Absent: distended, tenderness, guarding, rebound, rigid Extremities exam: Present: normal inspection, full ROM, normal capillary refill. Absent: tenderness, pedal edema, joint swelling, calf tenderness Back exam: Present: normal inspection Neurological exam: Present: alert, oriented X3, CN II-XII intact Psychiatric exam: Present: normal affect, normal mood Skin exam: Present: warm, dry, intact, normal color. Absent: rash Course Vital Signs 10/31/24 10/31/24 10/31/24 09:54 11:08 13:05 Temperature 97.8 F Pulse Rate 92 91 82 Respiratory 17 18 18 Rate Blood Pressure 130/76 139/80 137/70 O2 Sat by Pulse 100 94 L 98 Oximetry 10/31/24 15:24 Temperature Pulse Rate 64 Respiratory 18 Rate Blood Pressure 146/60 O2 Sat by Pulse 96 Oximetry Medical Decision Making - Medical Decision Making Was pt. sent in by a medical professional or institution (, NATI, CULTURE MANAGER, urgent care, hospital, or assisted...) When possible be specific @ -[No] Did you speak to anyone other than the patient for history (EMS, parent, family, police, friend...)? What history was obtained from this source @ -[No] Did you review nursing and triage notes (agree or disagree)? Why? @ -[I reviewed and agree with nursing and triage notes] Were old charts reviewed (outside hosp., previous admission, EMS record, old EKG, old radiological studies, urgent care reports/EKG's, assisted records)? Report findings @ -[No old charts were reviewed] Differential Diagnosis (chest pain, altered mental status, abdominal pain women, abdominal pain men, vaginal bleeding, weakness, fever, dyspnea, syncope, headache, dizziness, GI bleed, back pain, seizure, CVA, palpatations, mental health, musculoskeletal)? @ -[not applicable] EKG interpreted by me (3pts min.). @ -Yes and demonstrates atrial flutter with a rate of 104. QRS 87. QTc of 405. No acute ST segment elevation Repeat EKG done at 1512 demonstrates sinus rhythm with a rate of 62. Parable 152. QRS 85. QTc of 425. No acute ST segment elevation or depressions X-rays interpreted by me (1pt min.). @ -[None done] CT interpreted by me (1pt min.). @ -[None done] U/S interpreted by me (1pt. min.). @ -[None done] What testing was considered but not performed or refused? (CT, X-rays, U/S, labs)? Why? @ -[None] What meds were considered but not given or refused? Why? @ -[None] Did you discuss the management of the patient with other professionals (professionals i.e. NATI Michel, CULTURE MANAGER, lab, RT, psych nurse, social services specialist, production material coordinator, teacher, loan review officer, family preservation caseworker)? Give summary @ -[No] Was smoking cessation discussed for >3mins.? @ -[No] Was critical care preformed (if so, how long)? @ -[No] Were there social determinants of health that impacted care today? How? (Homelessness, low income, unemployed, alcoholism, drug addiction, transportation, low edu. Level, literacy, decrease access to med. care, halfway, r ehab)? @ -[No] Was there de-escalation of care discussed even if they declined (Discuss DNR or withdrawal of care, Hospice)? DNR status @ -[No] What co-morbidities impacted this encounter? (DM, HTN, Smoking, COPD, CAD, Cancer, CVA, ARF, Chemo, Hep., AIDS, mental health diagnosis, sleep apnea, morb id obesity)? @ -[None] Was patient admitted / discharged? Hospital course, mention meds given and r oute, prescriptions, significant lab abnormalities, going to OR and other pertinent info. @ -[hospital course] Undiagnosed new problem with uncertain prognosis? @ -[No] Drug Therapy requiring intensive monitoring for toxicity (Heparin, Nitro, Insulin, Cardizem)? @ -[No] Were any procedures done? @ -[No] Diagnosis/symptom? @ -[default] Acute, or Chronic, or Acute on Chronic? @ -[default] Uncomplicated (without systemic symptoms) or Complicated (systemic symptoms)? @ -[default] Side effects of treatment? @ -[No] Exacerbation, Progression, or Severe Exacerbation? @ -[No] Poses a threat to life or bodily function? How? (Chest pain, [place], [place], pneumonia, PE, COPD, DKA, ARF, appy, cholecystitis, CVA, Diverticulitis, Homicidal, Suicidal, threat to staff... and all critical care pts) @ -[No] - Lab Data Result diagrams: 10/31/24 12:23 10/31/24 12:23 Lab Results 10/31/24 10/31/24 10/31/24 Range/Units 12:23 12:23 12:23 WBC 9.6 (3.8-10.6) k/uL RBC 5.06 (3.80-5.40) m/uL Hgb 14.8 (11.4-16.0) gm/dL Hct 45.7 (34.0-46.0) % MCV 90.3 (80.0-100.0) fL MCH 29.2 (25.0-35.0) pg MCHC 32.3 (31.0-37.0) g/dL RDW 12.9 (11.5-15.5) % Plt Count 205 (150-450) k/uL MPV 8.8 Neutrophils % 66 % Lymphocytes % 25 % Monocytes % 5 % Eosinophils % 2 % Basophils % 0 % Neutrophils # 6.3 (1.3-7.7) k/uL Lymphocytes # 2.4 (1.0-4.8) k/uL Monocytes # 0.5 (0-1.0) k/uL Eosinophils # 0.2 (0-0.7) k/uL Basophils # 0.0 (0-0.2) k/uL PT 10.9 (10.0-12.5) sec INR 1.0 (<1.2) APTT 30.5 H (22.0-30.0) sec Sodium 137 (137-145) mmol/L Potassium 4.1 (3.5-5.1) mmol/L Chloride 105 (98-107) mmol/L Carbon Dioxide 24 (22-30) mmol/L Anion Gap 8 mmol/L BUN 22 H (7-17) mg/dL Creatinine 0.63 (0.52-1.04) mg/dL Est GFR (CKD-EPI)AfAm >90 (>60 ml/min/1.73 sqM) Est GFR (CKD-EPI)NonAf 82 (>60 ml/min/1.73 sqM) Glucose 109 H (74-99) mg/dL Calcium 9.5 (8.4-10.2) mg/dL Magnesium 2.2 (1.6-2.3) mg/dL Total Bilirubin 0.8 (0.2-1.3) mg/dL AST 35 (14-36) U/L ALT 35 H (4-34) U/L Alkaline Phosphatase 85 (38-126) U/L Troponin I (0.000-0.034) ng/mL Total Protein 7.2 (6.3-8.2) g/dL Albumin 4.2 (3.5-5.0) g/dL TSH 1.310 (0.465-4.680) mIU/L 10/31/24 Range/Units 12:23 WBC (3.8-10.6) k/uL RBC (3.80-5.40) m/uL Hgb (11.4-16.0) gm/dL Hct (34.0-46.0) % MCV (80.0-100.0) fL MCH (25.0-35.0) pg MCHC (31.0-37.0) g/dL RDW (11.5-15.5) % Plt Count (150-450) k/uL MPV Neutrophils % % Lymphocytes % % Monocytes % % Eosinophils % % Basophils % % Neutrophils # (1.3-7.7) k/uL Lymphocytes # (1.0-4.8) k/uL Monocytes # (0-1.0) k/uL Eosinophils # (0-0.7) k/uL Basophils # (0-0.2) k/uL PT (10.0-12.5) sec INR (<1.2) APTT (22.0-30.0) sec Sodium (137-145) mmol/L Potassium (3.5-5.1) mmol/L Chloride (98-107) mmol/L Carbon Dioxide (22-30) mmol/L Anion Gap mmol/L BUN (7-17) mg/dL Creatinine (0.52-1.04) mg/dL Est GFR (CKD-EPI)AfAm (>60 ml/min/1.73 sqM) Est GFR (CKD-EPI)NonAf (>60 ml/min/1.73 sqM) Glucose (74-99) mg/dL Calcium (8.4-10.2) mg/dL Magnesium (1.6-2.3) mg/dL Total Bilirubin (0.2-1.3) mg/dL AST (14-36) U/L ALT (4-34) U/L Alkaline Phosphatase (38-126) U/L Troponin I 0.630 H* (0.000-0.034) ng/mL Total Protein (6.3-8.2) g/dL Albumin (3.5-5.0) g/dL TSH (0.465-4.680) mIU/L Disposition Clinical Impression: NSTEMI (non-ST elevated myocardial infarction), Palpitations, Atrial flutter Disposition: ADMITTED IP TO THIS [facility] Condition: Serious Is patient prescribed a controlled substance at d/c from ED?: No Referrals: Robert Lerma DO [Primary Care Provider] - 1-2 days Time of Disposition: 14:58 Decision to Admit Reason: Admit from EC Decision Date: 10/31/24 Decision Time: 14:58
[2024-10-31 12:31] LABS: Basophils % (A) 0 %; Eosinophils # (A) 0.2 k/uL (0-0.7); Eosinophils % (A) 2 %; HCT 45.7 % (34.0-46.0); HGB 14.8 gm/dL (11.4-16.0); Lymphocytes # (A) 2.4 k/uL (1.0-4.8); Lymphocytes % (A) 25 %; MCH 29.2 pg (25.0-35.0); MCHC 32.3 g/dL (31.0-37.0); MCV 90.3 fL (80.0-100.0); Mean Platelet Volume 8.8; Monocytes # (A) 0.5 k/uL (0-1.0); Monocytes % (A) 5 %; Neutrophils # (A) 6.3 k/uL (1.3-7.7); Neutrophils % (A) 66 %; Platelet Count 205 k/uL (150-450); RBC 5.06 m/uL (3.80-5.40); RDW 12.9 % (11.5-15.5); WBC 9.6 k/uL (3.8-10.6)
[2024-10-31 12:44] LABS: ALT 35 U/L (4-34); AST 35 U/L (14-36); African American GFR (CKD) >90 (>60 ml/min/1.73 sqM); Albumin 4.2 g/dL (3.5-5.0); Alkaline Phosphatase 85 U/L (38-126); Anion Gap 8 mmol/L; Blood Urea Nitrogen 22 mg/dL (7-17); Calcium 9.5 mg/dL (8.4-10.2); Carbon Dioxide 24 mmol/L (22-30); Chloride 105 mmol/L (98-107); Glucose 109 mg/dL (74-99); Magnesium 2.2 mg/dL (1.6-2.3); Non-African American GFR(CKD) 82 (>60 ml/min/1.73 sqM); Potassium 4.1 mmol/L (3.5-5.1); Sodium 137 mmol/L (137-145); Total Bilirubin 0.8 mg/dL (0.2-1.3); Total Protein 7.2 g/dL (6.3-8.2)
[2024-10-31 13:07] LABS: Partial Thromboplastin Time 30.5 sec (22.0-30.0); Prothrombin Time 10.9 sec (10.0-12.5)
[2024-10-31] MEDS ORDERED: NALOXONE 0.4 MG/ML 1 ML VIAL IV PRN (14:59)
[2024-10-31] MEDS ORDERED: HEPARIN SODIUM 1,000 UN/ML (10ML VL) IV PRN (14:59)
[2024-10-31] MEDS: ASPIRIN 81 MG PO STA (15:26)
[2024-10-31] MEDS: HEPARIN SOD,PORK IN 0.45% NACL 25,000 UNIT in 0.45% NACL 1 250ML.BAG IV SCH (15:36)
[2024-10-31] MEDS: HEPARIN SODIUM 1,000 UN/ML (10ML VL) IV ONE (15:36)
--- NOTE | 2024-10-31 18:20 | P.HPIM ---
History of Present Illness H&P Date: 10/31/24 Chief Complaint: Palpitations Patient is a 84-year-old female with a past medical history of hypertension, atrial fibrillation on anticoagulation with Pradaxa, history of CVA with left- sided weakness in 2005, coronary artery disease with history of CABG in 2012 and permanent pacemaker placement presents to ER with complaints of palpitations since last night. Patient also felt sharp retrosternal chest pain on and off. Her heart rate was not controlled which made her to come to ER. While in the ER she was converted back to sinus rhythm. Associated with mild shortness of breath. Denied any associated nausea or vomiting. No radiation of the pain. Patient does take Pradaxa for anticoagulation. Denies any recent illnesses. Patient does follow with Dr. Rivero as an outpatient and was told she may need a stent. Otherwise denied any leg swelling. Denies any recent illnesses. Chest x-ray showed no acute cardiopulmonary disease with no interval change. EKG showed atrial flutter/tachycardia with rapid ventricular response. Laboratory data showed WBC 9.6 hemoglobin 14.8 and platelets 205 Sodium 137 potassium 4.1 chloride 105 bicarb is 24 BUN 2020 creatinine 0.63 and blood sugar 109 Troponin 0.630 and TSH 1.31 Review of Systems Constitutional: Patient denies any fever or chills . No generalized weakness or weight loss. Abdomen: Patient denied nausea vomiting and diarrhea and abdominal pain. Cardiovascular: Patient complaining of palpitations and intermittent chest pain and shortness of breath. No leg swelling. Respiratory: patient denied any cough or sputum production. No shortness of breath Neurologic: Patient denied any numbness or tingling. no headache. Musculoskeletal: Patient denies any complaints of joint swelling or deformity. Skin: Negative Psychiatric: Negative Endocrine: No heat or cold intolerance. No recent weight gain. Genitourinary: No dysuria or hematuria. All other 14 point ROS negative except the above Past Medical History Past Medical History: Atrial Fibrillation, CVA/TIA, Hypertension, Myocardial Infarction ([place]) Additional Past Medical History / Comment(s): CVA left side weakness 2005, open heart in 2012, pacemaker in 2012 Last Myocardial Infarction Date:: 2012 History of Any Multi-Drug Resistant Organisms: None Reported Past Surgical History: Coronary Bypass/CABG, Pacemaker Additional Past Surgical History / Comment(s): CABG 2012, Past Anesthesia/Blood Transfusion Reactions: No Reported Reaction Type of Cardiac Device: Permanent Pacemaker Device Placement Date:: 2012 Past Psychological History: No Psychological Hx Reported Smoking Status: Never smoker Medications and Allergies Home Medications Medication Instructions Recorded Confirmed Type Isosorbide Mononitrate ER [Imdur] 30 mg PO BID 07/15/23 10/31/24 History Losartan Potassium 50 mg PO BID 07/15/23 10/31/24 History Clopidogrel [Plavix] 75 mg PO DAILY #30 tab 06/11/24 10/31/24 Rx Colon Support 2 tab PO DAILY 10/31/24 10/31/24 History Dabigatran [Pradaxa] 75 mg PO BID 10/31/24 10/31/24 History Garlique 1 tab PO DAILY 10/31/24 10/31/24 History Magnesium Glycinate 200mg 400 mg PO BID 10/31/24 10/31/24 History Metoprolol Succinate (ER) [Toprol 50 mg PO DAILY 10/31/24 10/31/24 History Xl] Nitroglycerin Sl Tabs [Nitrostat] 0.4 mg SL Q5M PRN 10/31/24 10/31/24 History Dennis-3(Unknown Dose) 1 cap PO DAILY 10/31/24 10/31/24 History Allergies Allergy/AdvReac Type Severity Reaction Status Date / Time No Known Allergies Allergy Verified 10/31/24 14:29 Physical Exam Vitals: Vital Signs Temp Pulse Resp BP Pulse Ox 10/31/24 15:24 64 18 146/60 96 10/31/24 13:05 82 18 137/70 98 10/31/24 11:08 91 18 139/80 94 L 10/31/24 09:54 97.8 F 92 17 130/76 100 Intake and Output 10/31/24 10/31/24 10/31/24 06:59 14:59 22:59 Other: Weight 61.235 kg PHYSICAL EXAMINATION: Patient is lying in the bed comfortably, no acute distress, awake alert and oriented.. HEENT: Normocephalic. Neck is supple. Pupils reactive. Nostrils clear. Oral cavity is moist. Neck reveals no JVD, carotid bruits, or thyromegaly. CHEST EXAMINATION: Trachea is central. Symmetrical expansion. Lung kulkarni clear to auscultation and percussion. CARDIAC: Normal S1, S2 with no gallops. Regular rhythm. ABDOMEN: Soft. Bowel sounds normal. No organomegaly. No abdominal bruits. Extremities: reveal no edema. No clubbing or cyanosis Neurologically awake, alert, oriented x3 able to move all extremities. Minimal left-sided weakness Skin: No rash or skin lesions. Psychiatric: Coperative. Nonsuicidal Musculoskeletal: No joint swelling or deformity. Results CBC & Chem 7: 10/31/24 12:23 10/31/24 12:23 Labs: Abnormal Lab Results - Last 24 Hours (Table) 10/31/24 10/31/24 10/31/24 Range/Units 12:23 12:23 12:23 APTT 30.5 H (22.0-30.0) sec BUN 22 H (7-17) mg/dL Glucose 109 H (74-99) mg/dL ALT 35 H (4-34) U/L Troponin I 0.630 H* (0.000-0.034) ng/mL Thrombosis Risk Factor Assmnt - DVT/VTE Prophylaxis DVT/VTE Prophylaxis: Pharmacologic Prophylaxis ordered Assessment and Plan Assessment: Atrial fibrillation with rapid ventricular response Paroxysmal atrial fibrillation on anticoagulation with Pradaxa Elevated troponin level possible non-ST elevated IN Coronary artery history CABG in 2012 History of pulm and pacemaker placement History of CVA with left-sided weakness in 2005 History of [place] Hypertension Plan: Patient will be continued on telemonitoring. Patient was converted back to sinus rhythm while in the ER. Continue with Toprol-XL 50 mg daily. Patient was started on anticoagulation with heparin drip and further cardiac evaluation due to elevated troponin level. Follow-up repeat troponin level. Was given a dose of aspirin in the ER. Continue with home medications and follow-up closely. Time with Patient: Greater than 30
[2024-10-31] MEDS: NITROGLYCERIN-D5W PMX 50 MG in DEXTROSE/WATER 1 250ML.BAG IV SCH (19:32)
[2024-10-31] MEDS ORDERED: ISOSORBIDE MONONITRATE ER 30 MG TAB.ER.24H PO SCH (21:00)
[2024-10-31] MEDS: MAGNESIUM OXIDE 400 MG TAB PO SCH (21:38)
[2024-10-31] MEDS: LOSARTAN 50 MG TAB PO SCH (21:38)
[2024-11-01 05:46] LABS: Basophils # (A) 0.1 k/uL (0-0.2); Basophils % (A) 1 %; Eosinophils # (A) 0.2 k/uL (0-0.7); Eosinophils % (A) 3 %; HCT 43.1 % (34.0-46.0); HGB 13.9 gm/dL (11.4-16.0); Lymphocytes # (A) 2.8 k/uL (1.0-4.8); Lymphocytes % (A) 33 %; MCH 29.7 pg (25.0-35.0); MCHC 32.3 g/dL (31.0-37.0); Monocytes # (A) 0.6 k/uL (0-1.0); Monocytes % (A) 7 %; Neutrophils # (A) 4.6 k/uL (1.3-7.7); Neutrophils % (A) 55 %; Platelet Count 173 k/uL (150-450); RBC 4.68 m/uL (3.80-5.40); RDW 12.9 % (11.5-15.5); WBC 8.4 k/uL (3.8-10.6)
[2024-11-01 06:07] LABS: African American GFR (CKD) 86 (>60 ml/min/1.73 sqM); Anion Gap 8 mmol/L; Blood Urea Nitrogen 21 mg/dL (7-17); Calcium 9.3 mg/dL (8.4-10.2); Carbon Dioxide 22 mmol/L (22-30); Chloride 106 mmol/L (98-107); Glucose 106 mg/dL (74-99); Non-African American GFR(CKD) 75 (>60 ml/min/1.73 sqM); Partial Thromboplastin Time 50.2 sec (22.0-30.0); Potassium 3.9 mmol/L (3.5-5.1); Prothrombin Time 10.8 sec (10.0-12.5); Sodium 136 mmol/L (137-145)
[2024-11-01] MEDS ORDERED: GARLIQUE PO SCH (09:00)
[2024-11-01] MEDS ORDERED: [UNRECOGNIZED DRUG - OTHER] PO SCH (09:00)
[2024-11-01] MEDS ORDERED: NITROGLYCERIN SL TABS 0.4 MG TAB SUBLINGUAL PRN (09:44)
[2024-11-01] MEDS ORDERED: ALPRAZolam 0.25 MG TAB PO PRN (09:44)
[2024-11-01] MEDS: CLOPIDOGREL 75 MG TAB PO SCH (10:03)
[2024-11-01] MEDS: METOPROLOL SUCCINATE (ER) 50 MG TAB.ER.24H PO SCH (10:03)
[2024-11-01] MEDS: SODIUM CHLORIDE 0.9% 1,000 ML in EMPTY BAG 1 BAG IV SCH (10:07)
[2024-11-01] MEDS: ATORVASTATIN 80 MG TAB PO STA (10:44)
[2024-11-01] MEDS: ASPIRIN 81 MG PO STA (10:44)
[2024-11-01] MEDS: IV FLUID CONTINUATION 1,000 ML IV ONE (12:00)
[2024-11-01] MEDS: MIDAZOLAM 2 MG/2 ML VIAL IVP ONE (12:03)
[2024-11-01] MEDS: fentaNYL (PF) 50 MCG/ML 2 ML AMP IVP ONE (12:03)
[2024-11-01] MEDS: hydrALAZINE HCL 20 MG/ML 1 ML VIAL IV ONE (12:03)
[2024-11-01] MEDS: LIDOCAINE 1% INJ 10MG/ML (20 ML MDV) SQ ONE (12:05)
[2024-11-01] MEDS: HEPARIN SODIUM,PORCINE (1 ML) 2,500 UNIT in SODIUM CHLORIDE 0.9% 250 ML IRRIGATION PRN (12:08)
[2024-11-01] MEDS: HEPARIN SODIUM,PORCINE 10,000 UNIT in SODIUM CHLORIDE 0.9% 1,000 ML IRRIGATION PRN (12:08)
[2024-11-01] MEDS: IOPAMIDOL-370 100ML BTL INJ ONE ×2 (12:29→12:39)
--- NOTE | 2024-11-01 12:48 | P.PN ---
Progress Note - Text Progress Note Date: 11/01/24 Chief Complaint: Palpitations Patient is a 84-year-old female with a past medical history of hypertension, atrial fibrillation on anticoagulation with Pradaxa, history of CVA with left- sided weakness in 2005, coronary artery disease with history of CABG in 2012 and permanent pacemaker placement presents to ER with complaints of palpitations since last night. Patient also felt sharp retrosternal chest pain on and off. Her heart rate was not controlled which made her to come to ER. While in the ER she was converted back to sinus rhythm. Associated with mild shortness of breath. Denied any associated nausea or vomiting. No radiation of the pain. Patient does take Pradaxa for anticoagulation. Denies any recent illnesses. Patient does follow with Dr. Rivero as an outpatient and was told she may need a stent. Otherwise denied any leg swelling. Denies any recent illnesses. Chest x-ray showed no acute cardiopulmonary disease with no interval change. EKG showed atrial flutter/tachycardia with rapid ventricular response. Laboratory data showed WBC 9.6 hemoglobin 14.8 and platelets 205 Sodium 137 potassium 4.1 chloride 105 bicarb is 24 BUN 2020 creatinine 0.63 and blood sugar 109 Troponin 0.630 and TSH 1.31 November 01, 2024: Patient seen in the ER this morning. Laying in bed. A bit tired. Sinus rhythm. On IV heparin. IV nitroglycerin drip. Patient is n.p.o. for a cardiac catheterization. Patient ruled in for acute non-Q wave [place] Active Medications Alprazolam (Alprazolam 0.25 Mg Tab) 0.25 mg PO Q6HR PRN PRN Reason: Mild Anxiety Clopidogrel Bisulfate (Clopidogrel 75 Mg Tab) 75 mg PO DAILY [facility] Last Admin: 11/01/24 10:03 Dose: 75 mg Heparin Sodium (Porcine) (Heparin Sodium 1,000 Un/Ml (10ml Vl)) 0 unit IV PER PROTOCOL PRN; Protocol PRN Reason: Low PTT Heparin Sodium/Sodium Chloride (25,000 unit/ Sodium Chloride) 250 mls @ 7.348 mls/hr IV .Q24H [facility]; Protocol Last Titration: 11/01/24 06:28 Dose: 14 units/kg/hr, 8.573 mls/hr Nitroglycerin/Dextrose 50 mg/ (IV Solution) 250 mls @ 1.5 mls/hr IV .Q24H [facility]; Protocol Last Titration: 10/31/24 19:48 Dose: 20 mcg/min, 6 mls/hr Heparin Sodium (Porcine) 10, (000 unit/ Sodium Chloride) 1,001 mls @ 999 mls/hr IRRIGATION ONCE PRN PRN Reason: INTRA-OP Stop: 11/02/24 23:00 Last Admin: 11/01/24 12:08 Dose: 0 mls Heparin Sodium (Porcine) 2,500 (unit/ Sodium Chloride) 250.5 mls @ 250 mls/hr IRRIGATION ONCE PRN PRN Reason: INTRA-OP Stop: 11/02/24 23:00 Last Admin: 11/01/24 12:08 Dose: 0 mls Sodium Chloride 1,000 ml/ IV (Solution) 1,000 mls @ 75 mls/hr IV .[id number] [facility] Stop: 11/01/24 13:44 Last Admin: 11/01/24 10:07 Dose: 75 mls/hr Losartan Potassium (Losartan 50 Mg Tab) 50 mg PO BID [facility] Last Admin: 11/01/24 10:02 Dose: 50 mg Magnesium Oxide (Magnesium Oxide 400 Mg Tab) 400 mg PO BID [facility] Last Admin: 11/01/24 10:02 Dose: 400 mg Metoprolol Succinate (Metoprolol Succinate (Er) 50 Mg Tab.Er.24h) 50 mg PO DAILY [facility] Last Admin: 11/01/24 10:03 Dose: 50 mg Naloxone HCl (Naloxone 0.4 Mg/Ml 1 Ml Vial) 0.2 mg IV Q2M PRN PRN Reason: Opioid Reversal Nitroglycerin (Nitroglycerin Sl Tabs 0.4 Mg Tab) 0.4 mg SUBLINGUAL Q5M PRN PRN Reason: Chest Pain On examination: VITAL SIGNS: [Afebrile, 65, 16, 170 x 85, 94% room air] GENERAL APPEARANCE: BMI 26.4, reclining bed awake not in distress. HEENT: Normal external appearance of nose and ear. Oral cavity normal EYES: Pupils equal. Conjunctiva normal. NECK: JVD not raised. Mass not palpable. RESPIRATORY: Respiratory effort normal. Lungs clear to auscultation. CARDIOVASCULAR: First and second sounds normal. No edema. ABDOMEN: Soft. Liver and spleen not palpable. No tenderness. No mass palpable. PSYCHIATRY: Alert and oriented x3. Mood and affect normal. INVESTIGATIONS, reviewed in the clinical context: November 01: White count 8.4 hemoglobin 13.9 platelets 173 sodium 136 potassium 3.9 creatinine 0.74 Troponin I 0.6, was 1.2, 1.02 EKG tracing personally reviewed by me-normal sinus rhythm. ST segment depression inferolateral leads Past Medical History Past Medical History: Atrial Fibrillation, CVA/TIA, Hypertension, Myocardial Infarction ([place]) Additional Past Medical History / Comment(s): CVA left side weakness 2005, open heart in 2012, pacemaker in 2012 Last Myocardial Infarction Date:: 2012 History of Any Multi-Drug Resistant Organisms: None Reported Past Surgical History: Coronary Bypass/CABG, Pacemaker Additional Past Surgical History / Comment(s): CABG 2012, Past Anesthesia/Blood Transfusion Reactions: No Reported Reaction Type of Cardiac Device: Permanent Pacemaker Device Placement Date:: 2012 Past Psychological History: No Psychological Hx Reported Smoking Status: Never smoker Assessment plan: -Paroxysmal atrial fibrillation with rapid ventricular response, now back in sinus rhythm IV heparin. Toprol-XL 50 mg a day. Chronically on Pradaxa -Acute non-Q wave myocardial infarction Pending cardiac catheterization this afternoon by cardiology -IV heparin monitoring, per protocol -Coronary artery history CABG in 2012 -Permanent pacemaker placement -History of CVA with left-sided weakness in 2005 -Essential hypertension Cozaar. Toprol-XL. -Full code Pending cardiac catheterization this afternoon. Discussed with patient.
--- NOTE | 2024-11-01 13:16 | P.CARDCATH ---
Date of Procedure: 11/01/24 Description of Procedure: DIAGNOSTIC CORONARY ANGIOGRAPHY and LEFT HEART CATH, CABG bypass graft angiography REPORT PROCEDURES PERFORMED: Left heart catheterization Selective coronary angiography Moderate conscious sedation. 43-minutes Right common femoral access Right common femoral arteriogram Angioseal Closure Selective angiogram of SVG graft Selective angiogram of COBB graft INDICATION: NSTEMI Patient is a 84-year-old female with past medical history of coronary artery disease status post CABG with severe [place] vessel disease, prior history of COBB to LAD, SVG to OM, SVG to diagonal, SVG to PDA. She also has prior history of paroxysmal atrial fibrillation and CVA. She presents to the hospital because of worsening substernal chest pressure along with concerns of elevated heart rate. On admission she had evidence of elevated troponin ruling her in as NSTEMI. She had a heart cath in 10/2023 which showed severe [place] vessel disease but patent SVG to PDA, COBB to LAD. Her SVG to OM mid segment had 80% eccentric disease and SVG to diagonal proximal segment had 80% disease however patient did not wanted to have intervention and wanted medical management at that time. CONSENT: I have discussed the risks, benefits and alternative therapies for the above-mentioned procedure, sedation/analgesia and necessary blood product administration (if indicated, as they pertain to this patient). The patient has indicated understanding and acceptance of the risks and procedures discussed. Conscious Sedation: Patient's ECG, heart rate, blood pressure, pulse oximetry was monitored throughout the duration of procedure under the direct supervision. 1 mg Versed and [50] mg Fentanyl were used for induction of moderate conscious sedation. Total duration of 43 minutes. PROCEDURE:After the risks, benefits and alternatives of the above mentioned procedure explained in detail with the patient, informed consent was obtained. Patient was taken to the catheterization lab and prepped and draped in usual sterile fashion. Ultrasound was used to identify the right common femoral artery. 1% lidocaine was infiltrated over the right common femoral artery. Using ultrasound arterial access was obtained using micropuncture needle. A 6-Czech sheath was placed in the right coomon femoral artery using modified Seldinger technique. J tipped wire was advanced under fluoroscopic guidance. Over the wire JL4 diagnostic catheter was advanced. Wire was removed, catheter was flushed and manipulated under fluoroscopy to selectively engaged the left coronary ostium. Left coronary angioplasty was performed in different angiographic projections. This catheter was exchanged for a JR4 diagnostic catheter over the wire. The catheter was flushed and manipulated to cross the aortic valve. LV pressures were obtained. Pullback was performed across aortic valve and catheter was manipulated to selectively engage the right coronary ostium under fluoroscopic guidance. Right coronary angiography was performed in different angiographic projections. Catheter was removed over the wire. Femoral sheath was flushed. Angioseal closure device was used to close the arteriotomy site. Appropriate patent hemostasis was achieved. The patient tolerated the procedure well. Patient was transported back to the post catheterization holding area in stable condition. Angiographic images were reviewed in detail. HEMODYNAMICS: LVEDP 10 mmHg. Peak to peak gradient across aortic valve was 10 mmHg. SELECTIVE CORONARY ARTERIOGRAPHY: LEFT MAIN: Left main is 99% occluded, unchanged from prior exam from 10/2023 LEFT ANTERIOR DESCENDING CORONARY ARTERY: Occluded LEFT CIRCUMFLEX CORONARY ARTERY: Occluded RIGHT CORONARY ARTERY: 100% occluded in proximal segment CABG grafts SVG to PDA: Patent with good distal runoff and PDA. PDA supplies septal collaterals SVG to OM: Vein graft is connected to OM1 with a sequential to OM 3. OM1 retrogradely fills LCx which has severe diffuse disease. After anastomosis to OM1 there is 50 to 60% stenosis with haziness in mid segment before giving anastomosis to OM 3. When compared to heart cath from 10/2023, this disease appears to be improved from 80% previously. OM 3 distal to anastomosis has moderate to severe diffuse disease. SVG to diagonal: 100% occluded COBB to LAD: COBB graft is patent. Distal LAD has severe diffuse disease. IMPRESSION: 1. Severe [place] vessel disease, 100% occluded RCA, 99% occluded left main with minimal flow in diagonal artery, 100% occluded LAD and LCx. Unchanged from 10/2023 2. 100% occluded SVG to diagonal, new from 10/2023 3. Patent COBB to LAD but distal LAD has severe diffuse disease 4. Patent SVG to PDA with good distal runoff 5. SVG to OM and sequential to OM 3, 50 to 60% disease in vein graft between OM1 and OM 3. PLAN: Aggressive risk factor modification per most recent ACC/AHA guidelines. 75 cc fluids for 6 hours Follow-up in the office in 1-2 weeks. Performing Physician Henry Rivero MD FAC, RPVI Thank you for allowing [facility] to participate in this patient's care. Feel free to reach out in case of any followup questions.
[2024-11-01] MEDS ORDERED: RX INFO: IV CONTRAST WAS GIVEN 1 EACH MISC MISCELLANE PRN (13:19)
[2024-11-01] MEDS: ISOSORBIDE MONONITRATE ER 30 MG TAB.ER.24H PO SCH (14:10)
[2024-11-01] MEDS: SODIUM CHLORIDE 0.9% 1,000 ML IV SCH (14:10)
[2024-11-01] MEDS: RANOLAZINE 500 MG TAB.ER.12H PO SCH (14:10)
[2024-11-01] MEDS: amLODIPine 5 MG TAB PO SCH (14:10)
--- NOTE | 2024-11-01 17:29 | P.CRDCN ---
History of Present Illness Consult date: 11/01/24 History of present illness: 84-year-old female with a PMH of hypertension, atrial fibrillation (on Pradaxa), history of CVA with left-sided weakness Duosan 6, coronary artery disease status post CABG in 2012 and permanent pacemaker presents to the ER with complaints of palpitations. Patient normally follows with Dr. Rivero for cardiology. Reports she also felt sharp retrosternal chest pain that comes and goes. Reports the chest pain has been getting worse over the last 2 months. States her heart rate was racing and not controlled which made her come to the ER. Additionally reports some mild shortness of breath. Of note overnight in the ER patient's systolic blood pressure was in the 200s and was having increased chest pain, at that time started on nitro drip by Dr. Randle. Cardiac history: Atrial fibrillation (on Pradaxa), [place] in 2012 (status post CABG) and pacemaker placement, hypertension Cardiac medication: Metoprolol succinate 50 mg p.o. daily, losartan 50 mg p.o. twice daily, Imdur 30 mg p.o. twice daily, Pradaxa 75 mg p.o. twice daily, and Plavix 75 mg p.o. daily. Family cardiac history: Father of [place] Cardiac imaging:Echo from 06/27 shows normal LV function, EF 60 to 65%, moderate MR, and mild . Carotid ultrasound from 06/27 shows 50 to 69% stenosis of right carotid and less than 50% stenosis of left carotid Surgical history: CABG and pace maker placement in 2012 Social history: Never smoker, no alcohol ROS: Constitutional: Patient denies any fever or chills . No generalized weakness or weight loss. Abdomen: Patient denied nausea vomiting and diarrhea and abdominal pain. Cardiovascular: Patient complaining of palpitations and intermittent chest pain and shortness of breath. No leg swelling. Respiratory: patient denied any cough or sputum production. No shortness of breath Neurologic: Patient denied any numbness or tingling. no headache. Musculoskeletal: Patient denies any complaints of joint swelling or deformity. Skin: Negative Psychiatric: Negative Endocrine: No heat or cold intolerance. No recent weight gain. Genitourinary: No dysuria or hematuria. All other 14 point ROS negative except the above Physical exam: Patient is lying in the bed comfortably, no acute distress, awake alert and oriented.. HEENT: Normocephalic. Neck is supple. Pupils reactive. Nostrils clear. Oral cavity is moist. Neck reveals no JVD, carotid bruits, or thyromegaly. CHEST EXAMINATION: Trachea is central. Symmetrical expansion. Lung kulkarni clear to auscultation and percussion. CARDIAC: Normal S1, S2 with no gallops. Regular rhythm. ABDOMEN: Soft. Bowel sounds normal. No organomegaly. No abdominal bruits. Extremities: reveal no edema. No clubbing or cyanosis Neurologically awake, alert, oriented x3 able to move all extremities. Minimal left-sided weakness Skin: No rash or skin lesions. Psychiatric: Coperative. Nonsuicidal Musculoskeletal: No joint swelling or deformity. Assessment: Paroxysmal atrial fibrillation with RVR on Pradaxa Elevated troponins, possible NSTEMI CAD status post CABG in 2012 History of pacemaker placement in 2012 History of [place] Hypertension History of CVA with left-sided weakness in 2005 Plan: -Plan for cardiac catheterization today with Dr. Rivero, hold Pradaxa -Continue other home cardiac medications other than Pradaxa -Will continue to follow the patient. Past Medical History Past Medical History: Atrial Fibrillation, CVA/TIA, Hypertension, Myocardial Infarction ([place]) Additional Past Medical History / Comment(s): CVA left side weakness 2005, open heart in 2012, pacemaker in 2012 Last Myocardial Infarction Date:: 2012 History of Any Multi-Drug Resistant Organisms: None Reported Past Surgical History: Coronary Bypass/CABG, Pacemaker Additional Past Surgical History / Comment(s): CABG 2012, Past Anesthesia/Blood Transfusion Reactions: No Reported Reaction Type of Cardiac Device: Permanent Pacemaker Device Placement Date:: 2012 Past Psychological History: No Psychological Hx Reported Smoking Status: Never smoker Medications and Allergies Home Medications Medication Instructions Recorded Confirmed Type Isosorbide Mononitrate ER [Imdur] 30 mg PO BID 07/15/23 10/31/24 History Losartan Potassium 50 mg PO BID 07/15/23 10/31/24 History Clopidogrel [Plavix] 75 mg PO DAILY #30 tab 06/11/24 10/31/24 Rx Colon Support 2 tab PO DAILY 10/31/24 10/31/24 History Dabigatran [Pradaxa] 75 mg PO BID 10/31/24 10/31/24 History Garlique 1 tab PO DAILY 10/31/24 10/31/24 History Magnesium Glycinate 200mg 400 mg PO BID 10/31/24 10/31/24 History Metoprolol Succinate (ER) [Toprol 50 mg PO DAILY 10/31/24 10/31/24 History Xl] Nitroglycerin Sl Tabs [Nitrostat] 0.4 mg SL Q5M PRN 10/31/24 10/31/24 History [place]-3(Unknown Dose) 1 cap PO DAILY 10/31/24 10/31/24 History Allergies Allergy/AdvReac Type Severity Reaction Status Date / Time No Known Allergies Allergy Verified 10/31/24 14:29 Physical Exam Vitals: Vital Signs Temp Pulse Resp BP Pulse Ox 11/01/24 07:15 65 18 129/73 97 11/01/24 06:00 62 16 186/78 97 11/01/24 04:00 67 16 166/73 97 11/01/24 03:00 60 16 142/69 96 11/01/24 01:00 64 16 162/79 10/31/24 23:00 60 16 149/81 10/31/24 21:30 65 16 166/78 10/31/24 20:15 60 167/76 95 10/31/24 20:10 65 150/75 95 10/31/24 20:05 69 158/81 90 L 10/31/24 20:00 73 168/77 10/31/24 19:57 73 153/84 10/31/24 19:52 79 172/79 10/31/24 19:47 80 16 205/87 95 10/31/24 19:41 81 220/95 97 10/31/24 19:33 95 221/119 10/31/24 18:00 97.8 F 67 18 159/75 96 10/31/24 15:24 64 18 146/60 96 10/31/24 13:05 82 18 137/70 98 10/31/24 11:08 91 18 139/80 94 L 10/31/24 09:54 97.8 F 92 17 130/76 100 Intake and Output 10/31/24 11/01/24 11/01/24 22:59 06:59 14:59 Intake Total 0.850 117.897 Balance 0.850 117.897 Intake: Intake, IV Titration 0.850 117.897 Amount Heparin Sod,Pork in 0.45% 117.897 NaCl 25,000 unit In 0.45 % NaCl 1 250ml.bag @ 12 UNITS/KG/HR 7.348 mls/hr IV .Q24H [facility] Rx#: [id number] Nitroglycerin-D5w Pmx 50 0.850 mg In Dextrose/Water 1 250ml.bag @ 5 MCG/MIN 1.5 mls/hr IV .Q24H [facility] Rx#: [id number] Results 11/01/24 05:08 11/01/24 05:08 Cardiac Enzymes 10/31/24 10/31/24 10/31/24 Range/Units 12:23 12:23 17:41 AST 35 (14-36) U/L Troponin I 0.630 H* 1.240 H* (0.000-0.034) ng/mL 10/31/24 Range/Units 22:06 AST (14-36) U/L Troponin I 1.020 H* (0.000-0.034) ng/mL Coagulation 10/31/24 10/31/24 11/01/24 Range/Units 12:23 22:06 05:08 PT 10.9 10.8 (10.0-12.5) sec APTT 30.5 H 39.4 H 50.2 H (22.0-30.0) sec CBC 10/31/24 11/01/24 Range/Units 12:23 05:08 WBC 9.6 8.4 (3.8-10.6) k/uL RBC 5.06 4.68 (3.80-5.40) m/uL Hgb 14.8 13.9 (11.4-16.0) gm/dL Hct 45.7 43.1 (34.0-46.0) % Plt Count 205 173 (150-450) k/uL Comprehensive Metabolic Panel 10/31/24 11/01/24 Range/Units 12:23 05:08 Sodium 137 136 L (137-145) mmol/L Potassium 4.1 3.9 (3.5-5.1) mmol/L Chloride 105 106 (98-107) mmol/L Carbon Dioxide 24 22 (22-30) mmol/L BUN 22 H 21 H (7-17) mg/dL Creatinine 0.63 0.74 (0.52-1.04) mg/dL Glucose 109 H 106 H (74-99) mg/dL Calcium 9.5 9.3 (8.4-10.2) mg/dL AST 35 (14-36) U/L ALT 35 H (4-34) U/L Alkaline Phosphatase 85 (38-126) U/L Total Protein 7.2 (6.3-8.2) g/dL Albumin 4.2 (3.5-5.0) g/dL Current Medications Generic Name Dose Route Start Last Admin Trade Name Freq PRN Reason Stop Dose Admin Clopidogrel Bisulfate 75 mg 11/01/24 09:00 Clopidogrel 75 Mg Tab PO DAILY [facility] Heparin Sodium (Porcine) 0 unit 10/31/24 14:59 Heparin Sodium 1,000 Un/Ml (10ml Vl) IV PER PROTOCOL PRN Low PTT Protocol Heparin Sodium/Sodium Chloride 250 mls @ 7.348 mls/hr 10/31/24 15:00 11/01/24 06:28 25,000 unit/ Sodium Chloride IV 14 units/kg/hr .Q24H [facility] 8.573 mls/hr Titration Protocol 12 UNITS/KG/HR Nitroglycerin/Dextrose 50 mg/ 250 mls @ 1.5 mls/hr 10/31/24 19:30 10/31/24 19:48 IV Solution IV 20 mcg/min .Q24H [facility] 6 mls/hr Titration Protocol 5 MCG/MIN Losartan Potassium 50 mg 10/31/24 21:00 10/31/24 21:38 Losartan 50 Mg Tab PO 50 mg BID [facility] Administration Magnesium Oxide 400 mg 10/31/24 21:00 10/31/24 21:38 Magnesium Oxide 400 Mg Tab PO Not Given BID [facility] Metoprolol Succinate 50 mg 11/01/24 09:00 Metoprolol Succinate (Er) 50 Mg Tab.Er.24h PO DAILY [facility] Naloxone HCl 0.2 mg 10/31/24 14:59 Naloxone 0.4 Mg/Ml 1 Ml Vial IV Q2M PRN Opioid Reversal Intake and Output 10/31/24 11/01/24 11/01/24 22:59 06:59 14:59 Intake Total 0.850 117.897 Balance 0.850 117.897 Intake: Intake, IV Titration 0.850 117.897 Amount Heparin Sod,Pork in 0.45% 117.897 NaCl 25,000 unit In 0.45 % NaCl 1 250ml.bag @ 12 UNITS/KG/HR 7.348 mls/hr IV .Q24H [facility] Rx#: [id number] Nitroglycerin-D5w Pmx 50 0.850 mg In Dextrose/Water 1 250ml.bag @ 5 MCG/MIN 1.5 mls/hr IV .Q24H [facility] Rx#: [id number] 11/01/24 05:08 11/01/24 05:08
[2024-11-01] MEDS: DABIGATRAN 75 MG CAP PO SCH (20:18)
[2024-11-01] MEDS: ATORVASTATIN 80 MG TAB PO SCH (20:18)
[2024-11-02] MEDS: cloNIDine HCL 0.1 MG TAB PO STA (00:07)
[2024-11-02] MEDS: ASPIRIN 81 MG PO SCH (08:12)
--- NOTE | 2024-11-02 13:07 | P.PN ---
Subjective Progress Note Date: 11/02/24 84-year-old female with a PMH of hypertension, atrial fibrillation (on Pradaxa), history of CVA with left-sided weakness Duosan 6, coronary artery disease status post CABG in 2012 and permanent pacemaker presents to the ER with complaints of palpitations. Patient normally follows with Dr. Rivero for cardiology. Reports she also felt sharp retrosternal chest pain that comes and goes. Reports the chest pain has been getting worse over the last 2 months. States her heart rate was racing and not controlled which made her come to the ER. Additionally reports some mild shortness of breath. Of note overnight in the ER patient's systolic blood pressure was in the 200s and was having increased chest pain, at that time started on nitro drip by Dr. Randle. Cardiac history: Atrial fibrillation (on Pradaxa), [place] in 2012 (status post CABG) and pacemaker placement, hypertension Cardiac medication: Metoprolol succinate 50 mg p.o. daily, losartan 50 mg p.o. twice daily, Imdur 30 mg p.o. twice daily, Pradaxa 75 mg p.o. twice daily, and Plavix 75 mg p.o. daily. Family cardiac history: Father of [place] Cardiac imaging:Echo from 06/27 shows normal LV function, EF 60 to 65%, moderate MR, and mild . Carotid ultrasound from 06/27 shows 50 to 69% stenosis of right carotid and less than 50% stenosis of left carotid Surgical history: CABG and pace maker placement in 2012 Social history: Never smoker, no alcohol 11/02/2024 Patient is doing well from cardiovascular standpoint. Blood pressure is better controlled, no reported chest pain or shortness of breath. Euvolemic, sinus rhythm on telemetry. Right groin has a small bruise otherwise is healing well with no signs of hematoma. ROS: Constitutional: Patient denies any fever or chills . No generalized weakness or weight loss. Abdomen: Patient denied nausea vomiting and diarrhea and abdominal pain. Cardiovascular: Patient complaining of palpitations and intermittent chest pain and shortness of breath. No leg swelling. Respiratory: patient denied any cough or sputum production. No shortness of breath Neurologic: Patient denied any numbness or tingling. no headache. Musculoskeletal: Patient denies any complaints of joint swelling or deformity. Skin: Negative Psychiatric: Negative Endocrine: No heat or cold intolerance. No recent weight gain. Genitourinary: No dysuria or hematuria. All other 14 point ROS negative except the above Physical exam: Patient is lying in the bed comfortably, no acute distress, awake alert and oriented.. HEENT: Normocephalic. Neck is supple. Pupils reactive. Nostrils clear. Oral cavity is moist. Neck reveals no JVD, carotid bruits, or thyromegaly. CHEST EXAMINATION: Trachea is central. Symmetrical expansion. Lung kulkarni clear to auscultation and percussion. CARDIAC: Normal S1, S2 with no gallops. Regular rhythm. ABDOMEN: Soft. Bowel sounds normal. No organomegaly. No abdominal bruits. Extremities: reveal no edema. No clubbing or cyanosis Neurologically awake, alert, oriented x3 able to move all extremities. Minimal left-sided weakness Skin: No rash or skin lesions. Psychiatric: Coperative. Nonsuicidal Musculoskeletal: No joint swelling or deformity. Assessment: Paroxysmal atrial fibrillation with RVR on Pradaxa Elevated troponins, possible NSTEMI CAD status post CABG in 2012 History of pacemaker placement in 2012 History of [place] Hypertension History of CVA with left-sided weakness in 2005 Plan: Continue aspirin, Plavix, Pradaxa Losartan 50 mg twice daily, Imdur 30 mg twice daily, metoprolol 50 mg daily Amlodipine 5 mg daily Ranexa 500 mg twice daily Obtain echocardiogram. Once echocardiogram is resulted, patient can be cleared from cardiovascular standpoint to be discharged. Patient is underinsured and cannot afford SGLT2 and ARNI Objective - Vital Signs Vital signs: Vital Signs Temp 98.3 F 11/02/24 12:00 Pulse 67 11/02/24 12:00 Resp 18 11/02/24 12:00 BP 125/69 11/02/24 12:00 Pulse Ox 95 11/02/24 12:00 FiO2 Intake & Output 11/01/24 11/02/24 11/02/24 18:59 06:59 18:59 Intake Total 323.4 120 10 Output Total 400 300 Balance -76.6 -180 10 Weight 61.235 kg 61.4 kg Intake: IV 100 10 Invasive Line 1 10 Intake, IV Titration 103.4 Amount Nitroglycerin-D5w Pmx 50 103.4 mg In Dextrose/Water 1 250ml.bag @ 5 MCG/MIN 1.5 mls/hr IV .Q24H [facility] Rx#: [id number] Oral 120 120 Output: Urine 400 300 Other: Voiding Method External Catheter External Catheter - Labs CBC & Chem 7: 11/01/24 05:08 11/01/24 05:08 Labs: Abnormal Lab Results - Last 24 Hours (Table) 11/02/24 Range/Units 06:34 APTT 30.2 H (22.0-30.0) sec
--- NOTE | 2024-11-02 16:23 | P.PN ---
Progress Note - Text Progress Note Date: 11/02/24 Chief Complaint: Palpitations Patient is a 84-year-old female with a past medical history of hypertension, atrial fibrillation on anticoagulation with Pradaxa, history of CVA with left- sided weakness in 2005, coronary artery disease with history of CABG in 2012 and permanent pacemaker placement presents to ER with complaints of palpitations since last night. Patient also felt sharp retrosternal chest pain on and off. Her heart rate was not controlled which made her to come to ER. While in the ER she was converted back to sinus rhythm. Associated with mild shortness of breath. Denied any associated nausea or vomiting. No radiation of the pain. Patient does take Pradaxa for anticoagulation. Denies any recent illnesses. Patient does follow with Dr. Rviero as an outpatient and was told she may need a stent. Otherwise denied any leg swelling. Denies any recent illnesses. Chest x-ray showed no acute cardiopulmonary disease with no interval change. EKG showed atrial flutter/tachycardia with rapid ventricular response. Laboratory data showed WBC 9.6 hemoglobin 14.8 and platelets 205 Sodium 137 potassium 4.1 chloride 105 bicarb is 24 BUN 2020 creatinine 0.63 and blood sugar 109 Troponin 0.630 and TSH 1.31 November 01, 2024: Patient seen in the ER this morning. Laying in bed. A bit tired. Sinus rhythm. On IV heparin. IV nitroglycerin drip. Patient is n.p.o. for a cardiac catheterization. Patient ruled in for acute non-Q wave [place] November 02: Patient underwent cardiac catheterization by Dr. Rivero. Severe [place] vessel disease unchanged from October 2023. 100% occluded SVG to diagonal new from October 2023. Patent COBB to LAD but distal LAD has severe diffuse disease. More details in Dr. Rivero's operative note. Up to chair. No chest pain or shortness of breath. Medications being adjusted including amlodipine Cozaar. Also Ranexa was added yesterday. Increase activity today. Active Medications Alprazolam (Alprazolam 0.25 Mg Tab) 0.25 mg PO Q6HR PRN PRN Reason: Mild Anxiety Amlodipine Besylate (Amlodipine 5 Mg Tab) 5 mg PO DAILY [facility] Aspirin (Aspirin 81 Mg) 81 mg PO DAILY [facility] Last Admin: 11/02/24 08:12 Dose: 81 mg Atorvastatin Calcium (Atorvastatin 80 Mg Tab) 80 mg PO HS [facility] Last Admin: 11/01/24 20:18 Dose: 80 mg Clopidogrel Bisulfate (Clopidogrel 75 Mg Tab) 75 mg PO DAILY [facility] Last Admin: 11/02/24 08:12 Dose: 75 mg Dabigatran (Dabigatran 75 Mg Cap) 75 mg PO BID [facility]; Protocol Last Admin: 11/02/24 08:12 Dose: 75 mg Isosorbide Mononitrate (Isosorbide Mononitrate Er 30 Mg Tab.Er.24h) 30 mg PO BID [facility] Last Admin: 11/02/24 08:12 Dose: 30 mg Losartan Potassium (Losartan 50 Mg Tab) 50 mg PO BID [facility] Last Admin: 11/02/24 08:12 Dose: 50 mg Magnesium Oxide (Magnesium Oxide 400 Mg Tab) 400 mg PO BID [facility] Last Admin: 11/02/24 08:13 Dose: 400 mg Metoprolol Succinate (Metoprolol Succinate (Er) 50 Mg Tab.Er.24h) 50 mg PO DAILY [facility] Last Admin: 11/02/24 06:22 Dose: 50 mg Miscellaneous Information (Rx Info: Iv Contrast Was Given 1 Each Misc) 1 each MISCELLANE DAILY PRN PRN Reason: Per Protocol Stop: 11/03/24 13:19 Naloxone HCl (Naloxone 0.4 Mg/Ml 1 Ml Vial) 0.2 mg IV Q2M PRN PRN Reason: Opioid Reversal Ranolazine (Ranolazine 500 Mg Tab.Er.12h) 500 mg PO Q12HR [facility] Last Admin: 11/02/24 08:13 Dose: 500 mg On examination: VITAL SIGNS: 98.3, 67, 18, 125 x 69, 95% room GENERAL APPEARANCE: Up in a chair, eating lunch. HEENT: Normal external appearance of nose and ear. Oral cavity normal EYES: Pupils equal. Conjunctiva normal. NECK: JVD not raised. Mass not palpable. RESPIRATORY: Respiratory effort normal. Lungs clear to auscultation. CARDIOVASCULAR: First and second sounds normal. No edema. ABDOMEN: Soft. Liver and spleen not palpable. No tenderness. No mass palpable. PSYCHIATRY: Alert and oriented x3. Mood and affect normal. INVESTIGATIONS, reviewed in the clinical context: November 01: White count 8.4 hemoglobin 13.9 platelets 173 sodium 136 potassium 3.9 creatinine 0.74 Troponin I 0.6, was 1.2, 1.02 EKG tracing personally reviewed by me-normal sinus rhythm. ST segment depression inferolateral leads Past Medical History Past Medical History: Atrial Fibrillation, CVA/TIA, Hypertension, Myocardial Infarction ([place]) Additional Past Medical History / Comment(s): CVA left side weakness 2005, open heart in 2012, pacemaker in 2012 Last Myocardial Infarction Date:: 2012 History of Any Multi-Drug Resistant Organisms: None Reported Past Surgical History: Coronary Bypass/CABG, Pacemaker Additional Past Surgical History / Comment(s): CABG 2012, Past Anesthesia/Blood Transfusion Reactions: No Reported Reaction Type of Cardiac Device: Permanent Pacemaker Device Placement Date:: 2012 Past Psychological History: No Psychological Hx Reported Smoking Status: Never smoker Assessment plan: -Paroxysmal atrial fibrillation with rapid ventricular response, now back in sinus rhythm IV heparin. Toprol-XL 50 mg a day. Chronically on Pradaxa -Acute non-Q wave myocardial infarction -IV heparin discontinued -Coronary artery history CABG in 2012 Cardiac catheterization done this admission by Dr. Rivero. Progression since October 2023. Medications adjusted -Permanent pacemaker placement -History of CVA with left-sided weakness in 2005 -Essential hypertension Cozaar. Toprol-XL. -Full code Medications adjusted per cardiology. Increase activity. Plan for discharge tomorrow.
--- NOTE | 2024-11-02 18:12 | CA ---
Transthoracic Echo Report Name: Catalina Escobar Age: 84 Gender: F : 1940 Exam Date: 11/02/2024 14:32 Exam Location: [place] [facility] Ht (in): 60 Wt (lb): 135 Ordering Physician: Henry Rivero MD ([id number]) Attending/Referring Phys: Shagger Taylor Lindsay RDCS Procedure CPT: Indications: nstemi Cardiac Hx: pacemaker/ Limited for LVF Technical Quality: Technically difficult study Contrast 1: Definity Total Dose (mL): 2 Contrast 2: Total Dose (mL): MEASUREMENTS (Male / Female) Normal Values 2D ECHO LVOT Diameter 1.4 cm LV Diastolic Volume MOD BP 124.2 cm??? 67 - 155 / 56 - 104 cm??? LV Systolic Volume MOD BP 63.0 cm??? 22 - 58 / 19 - 49 cm??? LV Ejection Fraction MOD BP 49.3 % >= 55 % LV Diastolic Volume MOD 4C 114.3 cm??? LV Systolic Volume MOD 4C 68.4 cm??? LV Ejection Fraction MOD 4C 40.2 % LV Diastolic Length 4C 7.7 cm LV Systolic Length 4C 6.5 cm LV Diastolic Volume MOD 2C 131.6 cm??? LV Systolic Volume MOD 2C 56.1 cm??? LV Ejection Fraction MOD 2C 57.4 % LV Diastolic Length 2C 7.9 cm LV Systolic Length 2C 6.8 cm DOPPLER AV Peak Velocity 240.4 cm/s AV Peak Gradient 23.1 mmHg AV Mean Velocity 194.3 cm/s AV Mean Gradient 15.9 mmHg AV Velocity Time Integral 56.5 cm AI Peak Velocity 402.7 cm/s AI Peak Gradient 64.9 mmHg AI Pressure Half Time 387.1 ms LVOT Peak Velocity 151.0 cm/s LVOT Peak Gradient 9.1 mmHg LVOT Velocity Time Integral 38.8 cm LVOT Stroke Volume 60.8 cm??? LVOT Stroke Volume Index 38.5 ml/m??? AV Area Cont Eq vti 1.1 cm??? AV Area Cont Eq pk 1.0 cm??? MV Peak Velocity 144.9 cm/s MV Peak Gradient 8.4 mmHg MV Mean Velocity 61.1 cm/s MV Mean Gradient 1.9 mmHg MV Velocity Time Integral 36.1 cm MV Area PHT 3.1 cm??? MR Peak Velocity 588.1 cm/s MR Peak Gradient 138.4 mmHg TR Peak Velocity 264.1 cm/s TR Peak Gradient 27.9 mmHg Right Atrial Pressure 5.0 mmHg Pulmonary Artery Systolic Pressu 32.9 mmHg Right Ventricular Systolic Press 32.9 mmHg FINDINGS Left Ventricle Left ventricular ejection fraction is estimated at 45%. Moderately increased left ventricular diastolic volume. Moderately increased left ventricular systolic volume. Mildly decreased left ventricular ejection fraction. Right Ventricle Mild right ventricular dilatation. Reduced right ventricular global systolic function. Right ventricular systolic pressure within normal limits. Right Atrium Mild right atrial dilatation. Left Atrium Mitral Valve Mitral valve thickened. Mitral annular calcification. No mitral stenosis. Mild- to-moderate mitral regurgitation. Aortic Valve Trileaflet aortic valve. Aortic valve sclerosis. Mild aortic stenosis with a peak gradient of 23 mmHg and a mean gradient of 16 mmHg. Tricuspid Valve Structurally normal tricuspid valve. No tricuspid stenosis. Mild tricuspid regurgitation. Pulmonic Valve Pericardium No pericardial or pleural effusion. Aorta CONCLUSIONS Diagnosis non-Q wave myocardial infarction Reduced LV systolic function ejection fraction 40 to 45% Inferior wall akinesis Mild aortic stenosis Previewed by: Dr. Jossue Bueno MD (Electronically Signed) Final Date: 02 November 2024 18:11
[2024-11-02] MEDS ORDERED: amLODIPine 5 MG TAB PO SCH (21:00)
[2024-11-03] MEDS: amLODIPine 5 MG TAB PO SCH (07:49)
[2024-11-03 10:02] VITALS: TEMP 97.8
[2024-11-03 11:36] VITALS: BP 161/75; PULSE 60; RESP 16
--- NOTE | 2024-11-03 11:47 | P.PN ---
Subjective HISTORY OF PRESENT ILLNESS: 84-year-old female with a PMH of hypertension, atrial fibrillation (on Pradaxa), history of CVA with left-sided weakness [place] 6, coronary artery disease status post CABG in 2012 and permanent pacemaker presents to the ER with complaints of palpitations. Patient normally follows with Dr. Rivero for cardiology. Reports she also felt sharp retrosternal chest pain that comes and goes. Reports the chest pain has been getting worse over the last 2 months. States her heart rate was racing and not controlled which made her come to the ER. Additionally reports some mild shortness of breath. Of note overnight in the ER patient's systolic blood pressure was in the 200s and was having increased chest pain, at that time started on nitro drip by Dr. Randle. Cardiac history: Atrial fibrillation (on Pradaxa), PR in 2012 (status post CABG) and pacemaker placement, hypertension Cardiac medication: Metoprolol succinate 50 mg p.o. daily, losartan 50 mg p.o. twice daily, Imdur 30 mg p.o. twice daily, Pradaxa 75 mg p.o. twice daily, and Plavix 75 mg p.o. daily. Family cardiac history: Father of PR Cardiac imaging:Echo from 06/27 shows normal LV function, EF 60 to 65%, moderate MR, and mild . Carotid ultrasound from 06/27 shows 50 to 69% stenosis of right carotid and less than 50% stenosis of left carotid Surgical history: CABG and pace maker placement in 2012 Social history: Never smoker, no alcohol 11/02/2024 Patient is doing well from cardiovascular standpoint. Blood pressure is better controlled, no reported chest pain or shortness of breath. Euvolemic, sinus rhythm on telemetry. Right groin has a small bruise otherwise is healing well with no signs of hematoma. 11/03/2024 Patient examined this morning at the bedside. Patient currently denies chest pain or pressure. She denies shortness of breath. Blood pressure elevated this morning. She is maintaining sinus mechanism with heart rate in the 60s. Echocardiogram performed revealing ejection fraction 45%, inferior wall akinesis, and mild aortic stenosis. She is status post cardiac catheterization revealing severe [place] vessel disease, 100% occluded RCA, 99% occluded left main with minimal flow in diagonal artery, 100% occluded LAD and left circumflex unchanged from 10/2023. 100% occluded SVG to diagonal, new from 10/2023. Patent COBB to LAD but distal LAD has severe diffuse disease. Patent SVG to PDA with good distal runoff. SVG to OM and sequential to OM 3 50 to 60% disease and vein graft between OM1 and OM 3. Medical management was recommended. PHYSICAL EXAM: VITAL SIGNS: Reviewed. GENERAL: Well-developed in no acute distress. NECK: Supple. No JVD or thyromegaly LUNGS: Respirations even and unlabored. Lungs essentially clear to auscultation bilaterally. HEART: Regular rate and rhythm. S1 and S2 heard. EXTREMITIES: Normal range of motion. No clubbing or cyanosis. Peripheral pulses intact. No lower extremity edema ASSESSMENT: Non-STEMI, status post cardiac catheterization as above Paroxysmal atrial fibrillation with RVR, currently maintaining sinus mechanism ischemic cardiomyopathy, 45% Mild aortic stenosis CAD status post CABG in 2012 History of pacemaker placement in 2012 History of PR Hypertension History of CVA with left-sided weakness in 2005 PLAN: Discontinue aspirin Continue current cardiac medications including Lipitor, Plavix, Pradaxa, Imdur, losartan, metoprolol succinate, and Ranexa Increase amlodipine to 5 mg twice a day for optimal blood pressure control Patient is underinsured and cannot afford SGLT2 and ARNI (per progress note from 11/02/24) Patient may be discharged home today from a cardiac standpoint Nurse practitioner note has been reviewed by physician. Signing provider agrees with the documented findings, assessment, and plan of care documented by [employer] as a scribe. Objective - Vital Signs Vital signs: Vital Signs Temp 97.8 F 11/03/24 08:00 Pulse 60 11/03/24 11:34 Resp 16 11/03/24 11:34 BP 161/75 11/03/24 11:34 Pulse Ox 97 11/03/24 11:34 FiO2 Intake & Output 11/02/24 11/03/24 11/03/24 18:59 06:59 18:59 Intake Total 20 20 240 Balance 20 20 240 Weight 65.4 kg Intake: IV 20 20 Invasive Line 1 20 20 Oral 240 Other: Voiding Method External Catheter External Catheter Toilet # Voids 2 1 1 - Labs CBC & Chem 7: 11/01/24 05:08 11/01/24 05:08
--- NOTE | 2024-11-03 20:35 | P.DS ---
Providers Date of admission: 10/31/24 14:59 Expected date of discharge: 11/03/24 Attending physician: Tiago Rinaldi Consults: 10/31/24 14:59 Consult Physician Urgent Consulting Provider: [facility] Consult Reason/Comments: nstemi, aflutter Do you want consulting provider notified?: Yes Primary care physician: [facility] Course: Chief Complaint: Palpitations Patient is a 84-year-old female with a past medical history of hypertension, atrial fibrillation on anticoagulation with Pradaxa, history of CVA with left- sided weakness in 2005, coronary artery disease with history of CABG in 2012 and permanent pacemaker placement presents to ER with complaints of palpitations since last night. Patient also felt sharp retrosternal chest pain on and off. Her heart rate was not controlled which made her to come to ER. While in the ER she was converted back to sinus rhythm. Associated with mild shortness of breath. Denied any associated nausea or vomiting. No radiation of the pain. Patient does take Pradaxa for anticoagulation. Denies any recent illnesses. Patient does follow with Dr. Rivero as an outpatient and was told she may need a stent. Otherwise denied any leg swelling. Denies any recent illnesses. Chest x-ray showed no acute cardiopulmonary disease with no interval change. EKG showed atrial flutter/tachycardia with rapid ventricular response. Laboratory data showed WBC 9.6 hemoglobin 14.8 and platelets 205 Sodium 137 potassium 4.1 chloride 105 bicarb is 24 BUN 2020 creatinine 0.63 and blood sugar 109 Troponin 0.630 and TSH 1.31 November 01, 2024: Patient seen in the ER this morning. Laying in bed. A bit tired. Sinus rhythm. On IV heparin. IV nitroglycerin drip. Patient is n.p.o. for a cardiac catheterization. Patient ruled in for acute non-Q wave [place] November 02: Patient underwent cardiac catheterization by Dr. Rivero. Severe [place] vessel disease unchanged from October 2023. 100% occluded SVG to diagonal new from October 2023. Patent COBB to LAD but distal LAD has severe diffuse disease. More details in Dr. Rivero's operative note. Up to chair. No chest pain or shortness of breath. Medications being adjusted including amlodipine Cozaar. Also Ranexa was added yesterday. Increase activity today. November 03: Stable. No cardiac symptoms. Cleared by cardiology. Follow-up with cardiology. Questions answered On examination: VITAL SIGNS: 97.8, 60, 16, 161 x 75, 97% room air GENERAL APPEARANCE: Up in a chair, comfortable HEENT: Normal external appearance of nose and ear. Oral cavity normal EYES: Pupils equal. Conjunctiva normal. NECK: JVD not raised. Mass not palpable. RESPIRATORY: Respiratory effort normal. Lungs clear to auscultation. CARDIOVASCULAR: First and second sounds normal. No edema. ABDOMEN: Soft. Liver and spleen not palpable. No tenderness. No mass palpable. PSYCHIATRY: Alert and oriented x3. Mood and affect normal. INVESTIGATIONS, reviewed in the clinical context: 2D echo: EF 45% November 01: White count 8.4 hemoglobin 13.9 platelets 173 sodium 136 potassium 3.9 creatinine 0.74 Troponin I 0.6, was 1.2, 1.02 EKG tracing personally reviewed by me-normal sinus rhythm. ST segment depression inferolateral leads Past Medical History Past Medical History: Atrial Fibrillation, CVA/TIA, Hypertension, Myocardial Infarction ([place]) Additional Past Medical History / Comment(s): CVA left side weakness 2005, open heart in 2012, pacemaker in 2012 Last Myocardial Infarction Date:: 2012 History of Any Multi-Drug Resistant Organisms: None Reported Past Surgical History: Coronary Bypass/CABG, Pacemaker Additional Past Surgical History / Comment(s): CABG 2012, Past Anesthesia/Blood Transfusion Reactions: No Reported Reaction Type of Cardiac Device: Permanent Pacemaker Device Placement Date:: 2012 Past Psychological History: No Psychological Hx Reported Smoking Status: Never smoker Assessment plan: -Paroxysmal atrial fibrillation with rapid ventricular response, now back in sinus rhythm IV heparin. Toprol-XL 50 mg a day. Chronically on Pradaxa -Ischemic cardiomyopathy EF 45% -Acute non-Q wave myocardial infarction -Coronary artery history CABG in 2012 Cardiac catheterization done this admission by Dr. Rivero. Progression since October 2023. Medications adjusted -Permanent pacemaker placement -History of CVA with left-sided weakness in 2005 -Essential hypertension Cozaar. Toprol-XL. -Full code Disposition: Home Plan - Discharge Summary Discharge Rx Participant: No New Discharge Prescriptions: New Atorvastatin [Lipitor] 80 mg PO HS #30 tab amLODIPine [Norvasc] 5 mg PO BID #60 tab Ranolazine [Ranexa] 500 mg PO Q12HR #60 tab Continue Losartan Potassium 50 mg PO BID Metoprolol Succinate (ER) [Toprol XL] 50 mg PO DAILY Isosorbide Mononitrate ER [Imdur] 30 mg PO BID Clopidogrel [Plavix] 75 mg PO DAILY #30 tab Nitroglycerin Sl Tabs [Nitrostat] 0.4 mg SL Q5M PRN PRN Reason: Chest Pain Dabigatran [Pradaxa] 75 mg PO BID Magnesium Glycinate 200mg 400 mg PO BID No Action Garlique 1 tab PO DAILY [place]-3(Unknown Dose) 1 cap PO DAILY Colon Support 2 tab PO DAILY Discharge Medication List Isosorbide Mononitrate ER [Imdur] 30 mg PO BID 07/15/23 [History] Losartan Potassium 50 mg PO BID 07/15/23 [History] Clopidogrel [Plavix] 75 mg PO DAILY #30 tab 06/11/24 [Rx] Colon Support 2 tab PO DAILY 10/31/24 [History] Dabigatran [Pradaxa] 75 mg PO BID 10/31/24 [History] Garlique 1 tab PO DAILY 10/31/24 [History] Magnesium Glycinate 200mg 400 mg PO BID 10/31/24 [History] Metoprolol Succinate (ER) [Toprol XL] 50 mg PO DAILY 10/31/24 [History] Nitroglycerin Sl Tabs [Nitrostat] 0.4 mg SL Q5M PRN 10/31/24 [History] [place]-3(Unknown Dose) 1 cap PO DAILY 10/31/24 [History] Atorvastatin [Lipitor] 80 mg PO HS #30 tab 11/03/24 [Rx] Ranolazine [Ranexa] 500 mg PO Q12HR #60 tab 11/03/24 [Rx] amLODIPine [Norvasc] 5 mg PO BID #60 tab 11/03/24 [Rx] Follow up Appointment(s)/Referral(s): Henry Rivero MD [Medical Doctor] - 1 Week (CALL AND MAKE SUMIT! (heart doc)) Robert Lerma DO [Primary Care Provider] - 1-2 days (CALL AND MAKE [facility]IT! (PCP)) Patient Instructions/Handouts: Heart Attack (DC), Atrial Flutter (DC), Heart Palpitations (DC) Discharge Disposition: HOME WITH HOME HEALTH SERVICES
[2024-11-03] MEDS ORDERED: amLODIPine 5 MG TAB PO SCH (21:00)
== END 2024-11-03 14:43 | disposition home health service (06) | DRG 281 ==
LOC: EC 09:52 → 3SCARD 14:59
PROVIDERS: ADMIT Hospitalist; ATTEND Hospitalist
PROC: B2111ZZ Fluoroscopy of Multiple Coronary Arteries using Low Osmolar Contrast (ICD-10-PCS; 2024-11-01)
PROC: B2131ZZ Fluoroscopy of Multiple Coronary Artery Bypass Grafts using Low Osmolar Contrast (ICD-10-PCS; 2024-11-01)
PROC: B2181ZZ Fluoroscopy of Left Internal Mammary Bypass Graft using Low Osmolar Contrast (ICD-10-PCS; 2024-11-01)
PROC: 4A023N7 Measurement of Cardiac Sampling and Pressure, Left Heart, Percutaneous Approach (ICD-10-PCS; principal; 2024-11-01 15:15)
DX: I21.4 Non-ST elevation (NSTEMI) myocardial infarction (principal); I25.810 Atherosclerosis of coronary artery bypass graft(s) without angina pectoris; I48.92 Unspecified atrial flutter; I69.354 Hemiplegia and hemiparesis following cerebral infarction affecting left non-dominant side; I10 Essential (primary) hypertension; I08.1 Rheumatic disorders of both mitral and tricuspid valves; I48.0 Paroxysmal atrial fibrillation; Z95.0 Presence of cardiac pacemaker; I25.10 Atherosclerotic heart disease of native coronary artery without angina pectoris; I25.2 Old myocardial infarction; I25.5 Ischemic cardiomyopathy; Z79.01 Long term (current) use of anticoagulants; Z79.02 Long term (current) use of antithrombotics/antiplatelets; Z79.899 Other long term (current) drug therapy; Z82.49 Family history of ischemic heart disease and other diseases of the circulatory system; Z98.61 Coronary angioplasty status
CPT/HCPCS: 36415; 71046; 80048; 80053; 83735; 84443; 84484; 85025; 85610; 85730; 93005; 93308; 93459; 96365; 96366; 96367; 96368; 99285